=== PATIENT | male | born 1940 | race Caucasian/White ===

== ENCOUNTER → 2023-10-26 06:02 | Outpatient (REF) | payer MEDICARE, OTHER, SELFPAY ==
[2023-10-26 09:31] LABS: % Basophils 0.5 % (0-2); % Eosinophils 2.3 % (0-6); % Immature Granulocytes 0.5 % (0-0.5); % Lymphocytes 28.5 % (20.5-51.1); % Monocytes 7.3 % (1.7-9.3); % Neutrophils 60.9 % (42.2-75.2); Absolute Eosinophils 0.1 10^3/uL (0-0.7); Absolute Lymphocytes 1.3 10^3/uL (1.2-3.4); Absolute Monocytes 0.3 10^3/uL (0.1-0.6); Absolute Neutrophils 2.7 10^3/uL (1.4-6.5); Hematocrit 38.6 % (39.0-52.0); Hemoglobin 12.5 g/dL (13.0-18.0); Mean Corp Hgb Conc. 32.4 g/dL (33.0-37.0); Mean Corpuscular Hgb 28.1 pg (27.0-31.0); Mean Corpuscular Volume 86.7 fL (80.0-94.0); Mean Platelet Volume 11.8 fL (7.4-10.4); Nucleated Red Blood Cells % 0 % (-); Platelet Count 132 10^3/uL (130-400); Red Blood Cell Count 4.45 10^6/uL (4.70-6.10); Red Cell Dist. Width 13.8 % (11.5-14.5); White Blood Cell Count 4.4 10^3/uL (4.8-10.8)
[2023-10-26 09:41] LABS: Iron 81 ug/dl (49-181)
[2023-10-26 09:50] LABS: Percent Saturation 24 % (20-50); Total Iron Binding Capacity 337 ug/dl (261-462)
[2023-10-26 10:17] LABS: Ferritin 46.1 ng/ml (17.9-464.0)
== END ==
LOC: HWLAB 06:02
PROVIDERS: ATTENDING PHYSICIAN Family Medicine
DX: D64.9 Anemia, unspecified (principal)
CPT/HCPCS: 36415; 82728; 83540; 83550; 85025

== ENCOUNTER → 2023-11-25 07:05 | Outpatient (REF) | payer MEDICARE, OTHER, SELFPAY | LOC: DHCBS HW 07:05 | PROVIDERS: ATTENDING PHYSICIAN Internal Medicine Cardiovascular Disease; FAMILY PHYSICIAN Family Medicine | DX: R06.09 Other forms of dyspnea (principal) | CPT/HCPCS: 93306 ==

== ENCOUNTER → 2023-12-08 12:37 | Outpatient (REF) | payer MEDICARE, OTHER, SELFPAY ==
--- NOTE | 2023-12-08 14:35 | CARDSERVDEF ---
Echocardiogram with Definity completed after protocol screening completed. Allergies verified.
Patent IV site: Left antecubital 22 G PC
IV site flushed with 0.9% NaCl pre and post administration.
Diluted bolus method utilized to enhance visualization of ventricular morales.
Total volume given: _6___ mL
Patient tolerated all procedures well without complications.
Heplock D/C ed at 1424, site clear, no redness, no edema. Pressure held for few minutes, no bleeding. 2x2 applied. (Pt was unable to complete Stress test due to SOB, Cardiology W Jacklyn ST in to see patient, scheduling cardiac cath as outpatient.
Instructions given by Cardiology). Pt offers no complaints, denies SOB, denies chest pain.
== END ==
LOC: RCS 12:37
PROVIDERS: ATTENDING PHYSICIAN Internal Medicine Cardiovascular Disease; FAMILY PHYSICIAN Family Medicine
DX: R06.09 Other forms of dyspnea (principal); R07.89 Other chest pain
CPT/HCPCS: 93017; 93350; Q9957

== ENCOUNTER 2023-12-10 09:50 | Inpatient (IN) | payer MEDICARE, OTHER, SELFPAY ==
[2023-12-10] VITALS (26 sets, daily range): BP systolic 86–135; BP diastolic 52–105; BMI 27.7; BMI 27.0
[2023-12-10 07:32] LABS: Hematocrit 34.9 % (39.0-52.0); Hemoglobin 11.2 g/dL (13.0-18.0); Mean Corp Hgb Conc. 32.1 g/dL (33.0-37.0); Mean Corpuscular Hgb 27.9 pg (27.0-31.0); Mean Corpuscular Volume 86.8 fL (80.0-94.0); Mean Platelet Volume 12.5 fL (7.4-10.4); Platelet Count 130 10^3/uL (130-400); Red Blood Cell Count 4.02 10^6/uL (4.70-6.10); Red Cell Dist. Width 14.1 % (11.5-14.5)
[2023-12-10] MEDS: LOW STRENGTH ASPIRIN 324 MG PO (07:35)
[2023-12-10 07:52] LABS: Blood Urea Nitrogen 24 mg/dl (9-20); Calcium 9.1 mg/dl (8.4-10.2); Carbon Dioxide 24 mmol/L (22-30); Chloride 112 mmol/L (98-107); Estimated Creatinine Clearance 75 ml/min; Glucose 100 mg/dl (70-99); Potassium 4.2 mmol/L (3.5-5.1); Sodium 138 mmol/L (135-145); eGFR > 60.00
--- NOTE | 2023-12-10 10:01 | ITS.CL.CATH ---
[employer] - Catheterization
Cardiac Catheterization
Procedure Report:
RIGHT AND LEFT HEART STUDY
Date of Procedure: December 10, 2023
Referring: Dr. Reinaldo Castillo
PROCEDURES:
1. Right heart catheterization
2. Left heart catheterization with coronary and single-plane left ventriculography
INDICATION: This is an 83-year-old gentleman with a past medical history notable for paroxysmal atrial fibrillation treated with pulmonary vein isolation several years ago. He returned from [place] about 1 month ago and reported the sudden onset of
severe shortness of breath with any exertion. He had a stress echocardiogram performed on 12/08/2023 and was able to exercise only for 1 minute and 20 seconds on a Dell protocol before terminating exercise due to severe dyspnea.
ACCESS: Right radial artery, 6 South African sheath and right brachial vein, 6 [place] African sheath
HEMODYNAMICS : mmHg
RA (m) : 17
RV (s/d) : 49/11, 18
PA (s/d, m) : 49/22, 31
PCWP (m) : 35
AO (s/d, m) : 101/59, 74
LV (s/d) : 112/60
LVEDP : 28
AORTIC VALVE: Severity of aortic stenosis may be significantly underestimated given moderate LV dysfunction and an estimated ejection fraction of 30%
Mean gradient: 17 mmHg
IMTIAZ 1.1 cm�
Estimated Marilyn Cardiac Output: 3.7 L / min and Cardiac Index: 1.8 L/ min / m-2
Systemic vascular resistance: [ ] Wood units or [ ] [id number]-zno-kh(-5)
Pulmonary vascular resistance: [ ] Wood units or [ ] kyfjx-fyg-ks(-5)
CORONARY FINDINGS :
Dominance: Right
LEFT MAIN: 80% proximal and hazy 90% distal calcified stenosis.
LEFT ANTERIOR DESCENDING: The LAD arises normally from the left main and has an 80% stenosis near the origin of the first large septal dinkey driver. The remainder of the LAD has minor irregularities. The first diagonal branch arises proximally from
the LAD and is patent. The second diagonal branch has a 50% stenosis in the mid vessel
CIRCUMFLEX: 90% ostial stenosis. Tandem calcified / hazy 70% mid stenosis and 70% mid stenosis. OM1 is small. OM 2 is a moderate caliber vessel arising from the mid circumflex just before it continues in the AV groove. The AV groove continuation
of the circumflex has a long 60% distal stenosis and the distal vessel terminated in two moderate caliber posterolateral branches.
RIGHT CORONARY ARTERY: The right coronary artery is a medium caliber codominant vessel that is subtotally occluded at its origin. The mid RCA has tandem 95% heavily calcified stenoses and there is BERNARD II flow to a small codominant PDA
VENTRICULOGRAPHY: Left ventriculography was performed in an BECK projection. The digital single-plane left ventricular ejection fraction is visually estimated at 30% with moderate global hypokinesis severe posterior basal and diaphragmatic inferior
hypokinesis
RADIATION SUMMARY: Fluoro Time (min): 7.2, Dose (mGy): 467, DAP (Gy.cm2) : 37.5
CONCLUSIONS
1. Severe left main, LAD, circumflex, and RCA coronary disease
2. Moderate left ventricular dysfunction with an estimated ejection fraction of 30%
3. Moderate aortic stenosis
RECOMMENDATIONS
1. Consult CT surgery for coronary artery bypass grafting. Target should include LAD +/- diagonal, circumflex OM2 +/- posterolateral branch, and RCA
Copy to: Dr. Reinaldo Castillo
--- NOTE | 2023-12-10 10:14 | CONSULT.CT ---
Consultation
-
Date/Time Consultation Requested: 12/10/23
Date/Time Consultation Performed: 12/10/23
Requesting Provider: Dr Mirza
Performing Provider: Grace Minor for Dr. Pathak
Reason for Consultation: evaluate for CABG possible AVR
Patient History
Physicians
Family Physician: Dr. Giuliano Smith
Outpatient [place] Supervisor: Dr. Santos
Inpatient [place] Supervisor: Dr. Mirza
History of Present Illness
Romero Hernandez is an 83 year old male electively admitted for cardiac catheterization on 12/10/2023 patient was in usual state of health until approximately 6 weeks ago when he noted exertional shortness of breath while walking fast or
cutting the lawn. Patient saw his primary who referred him to Dr. Santos. Patient underwent outpatient stress test which was abnormal and was referred for catheterization. A catheter. Left main/triple-vessel coronary disease. Transthoracic
echocardiogram reported to mild-moderate aortic stenosis and mildly reduced LV ejection fraction. Last dose Eliquis was this morning.
Cardiac catheterization 12/10/2023 via right radial artery:
TTE: 11/25/23: LV ejection fraction 45-50%, mild�moderate mitral regurgitation and aortic stenosis. Aortic valve gradients 31/20 mmHg, IMTIAZ 1.2 cm�
Past Medical History
Past Medical History: Angina, Atrial Fib (s/p ablation x 2), Cancer (prostate cancer), HTN and Other (DJD)
Past Surgical History
Past Surgical History: Urological (prostatectomy 10 yrs ago ([place])) and Other (Left total hip replacement)
Family History
Mother: at Age (55) and Cause of ([place])
Father: at Age (95)
Social History
Alcohol: None
Drug: None
Tobacco: Non-Smoker
Personal:
Living: With Spouse
Employment: Employed
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
Allergies
Allergy/AdvReac Type Severity Reaction Status Date / Time
No Known Allergies Allergy Verified 12/10/23 07:11
Home Medications
�Medication �Instructions �Recorded �Confirmed �Type
apixaban 5 mg tablet (Eliquis) 5 mg PO BID Blood clot 08/02/15 12/10/23 History
prevention/tx
losartan 50 mg tablet 50 mg PO BID Blood pressure 08/02/15 12/10/23 History
simvastatin 40 mg tablet 40 mg PO QPM High cholesterol 09/25/15 12/10/23 History
bpvnyfgs-rly-qjlxq acid 0.4 1 ea PO DAILY Supplement 02/15/20 12/10/23 History
mg-lycopene 300 mcg-lutein 250 mcg
tablet (Centrum Silver)
amlodipine 5 mg tablet 5 mg PO DAILY Blood pressure #30 07/30/21 12/10/23 Rx
tabs
dofetilide 250 mcg capsule 250 mcg PO Q12 Arrhythmia #60 caps 07/30/21 12/10/23 Rx
Review of Systems
-
History Source: Patient
General: Reports No Symptoms
HEENT: Reports No Symptoms
Respiratory: Reports SOB (exertional)
Cardiac: Reports No Symptoms
Abdomen/GI: Reports No Symptoms
: Reports No Symptoms
Musculoskeletal: Reports No Symptoms
Skin: Reports No Symptoms
Neurological: Reports No Symptoms
Vascular: Reports No Symptoms
Physical Exam
Vital Signs
Temp 98.2 F 12/10/23 06:52
Pulse 69 12/10/23 10:10
Resp Rate 18 12/10/23 10:10
Blood pressure 115/80 12/10/23 10:10
Blood pressure extremity used: Right upper arm 12/10/23 06:52
Position: Lying 12/10/23 06:52
MAP (cuff-Mandy Monitor) 90 12/10/23 10:10
SaO2 99 12/10/23 10:10
Oxygen Mode of Delivery Room air 12/10/23 06:52
Can the patient verbally communicate their pain? Yes 12/10/23 06:52
Actual Weight 87.6 kg 12/10/23 07:30
Body Mass Index (BMI) 27.7 12/10/23 07:30
Labs
12/10/23 07:25
Exam
General: Well Developed, Well Nourished and Comfortable
HEENT: Normocephalic, Anicteric, Moist Mucous Membranes and PERRLA
Neck: Trachea Midline
Respiratory: Clear
Cardiac: S1/S2
GI: Soft, Non Tender, Non Distended and Normal Bowel Sounds
Rectal: Deferred by Provider
Skin: Warm and Dry
Neuro: AO x 3, No Motor Deficits and Nonfocal/Grossly Intact
Extremities: Pulses (+1/4)
Lymph: No Lymphadenopathy
Psych: Calm
Assessment / Plan
-
83-year-old male with left main/triple-vessel disease and mild/moderate aortic stenosis with mildly reduced ejection fraction, paroxysmal atrial fibrillation
- Diagnostic testing ordered
- Dr. Pathak to review imaging and speak with patient
- Last Eliquis dose 12/10/23
Data Reviewed
-
EKG: Report Reviewed by me and Discussed with Physician
Physician Gynecologist: Report Reviewed by me and Discussed with Physician
Echo: Report Reviewed by me and Discussed with Physician
Labs: Labs Reviewed by me and Discussed with Physician
[2023-12-10] MEDS: LASIX 40 MG IV ×2 (11:09→16:37)
[2023-12-10 13:59] LABS: Glycohemoglobin (HgbA1c) 6.2 % (4.0-5.6)
--- NOTE | 2023-12-10 14:44 | PTCARENOTE ---
Received pt post cath. VSS. Right radial and brachial sites w/ dsgs intact. Pt denies any chest pain. CT surgen in room. Will draw bloodwork and start the heparin drip when labs resulted. Meds as ordered.
[2023-12-10 15:11] LABS: INR 1.13; PT 14.4 Sec (11.4-14.6)
[2023-12-10 15:12] LABS: APTT 30.5 Sec (23.4-35.0)
[2023-12-10] MEDS: HEPARIN 25000 UNITS/250 ML IV (15:21)
--- NOTE | 2023-12-10 16:43 | W.PN.UPDATE ---
Update Note
Progress Note Update
pt seen and examined
cath reviewed
discussed with Dr Mirza
Pleasant 83 y/o with hx/o afib, admitted for cath following outpt workup for exertional dyspnea
Cath with left main and critical cad
I agree cabg, maze, DOUGLAS clip indicated.
Echo with Moderate , EF 30 (gradients might be underestimated)
Consideration for AVR at time of surgery
Long conversation with family and pt regarding findings and recommendations
Plan for possible surgery on Wed with Dr Lackey.
All questions answered.
--- NOTE | 2023-12-10 17:05 | CM ---
spoke to pt in room, he is prev indep, lives with his in a 2 story home with 2 steps to enter. he denies any dme's. plan is for CABG Tu or wed. cm to follow.
[2023-12-10] MEDS: LIPITOR 40 MG PO (18:40)
--- NOTE | 2023-12-10 20:00 | PTCARENOTE ---
Assumed care, patient sitting up in bed, denies pain. SR with 1st degree HB, bigeminy HR 60-70, murmur. Heparin infusing per MAR. Right radial and brachial dressing CDI. Urinal at bedside, emptied 500 cc of pale yellow urine. Lungs CTA, denies SOB.
Call romero in reach
[2023-12-10] MEDS: TIKOSYN 250 MCG PO (20:57)
[2023-12-10] MEDS: COZAAR 50 MG PO (20:57)
[2023-12-11 04:02] VITALS: BP 119/83
[2023-12-11 04:22] VITALS: BMI 26.4
[2023-12-11 05:11] LABS: ALT (SGPT) 107 U/L (0-50); AST (SGOT) 45 U/L (17-59); Albumin 3.6 g/dl (3.5-5.0); Alkaline Phosphatase 70 U/L (38-126); Blood Urea Nitrogen 21 mg/dl (9-20); Calcium 9.2 mg/dl (8.4-10.2); Carbon Dioxide 26 mmol/L (22-30); Chloride 109 mmol/L (98-107); Direct Bilirubin 0.2 mg/dl (0.0-0.4); Estimated Creatinine Clearance 75 ml/min; Glucose 106 mg/dl (70-99); HDL Cholesterol 59 mg/dl; LDL Cholesterol, Calculated 63 mg/dl; Magnesium 2.2 mg/dl (1.6-2.3); Sodium 139 mmol/L (135-145); Total Bilirubin 1.6 mg/dl (0.2-1.3); Total Cholesterol 134 mg/dl (50-199); Triglyceride 64 mg/dl (10-149); Very Low Density Lipoprotein 12 mg/dl (0-30); eGFR > 60.00
[2023-12-11 05:27] LABS: INR 1.11; PT 14.2 Sec (11.4-14.6)
[2023-12-11 05:28] LABS: APTT 51.3 Sec (23.4-35.0)
[2023-12-11 06:26] LABS: Hematocrit 37.6 % (39.0-52.0); Hemoglobin 12.2 g/dL (13.0-18.0); Mean Corp Hgb Conc. 32.4 g/dL (33.0-37.0); Mean Corpuscular Hgb 27.7 pg (27.0-31.0); Mean Corpuscular Volume 85.5 fL (80.0-94.0); Mean Platelet Volume 13.4 fL (7.4-10.4); Platelet Count 126 10^3/uL (130-400); White Blood Cell Count 6.8 10^3/uL (4.8-10.8)
--- NOTE | 2023-12-11 07:38 | W.PN.CARDCBS ---
Addendum entered and electronically signed by Dante Hale MD 12/11/23 10:38:
I saw and examined the patient.
The SAW BOSS or PA's note was reviewed and I agree with the note.
Comment: General: Well developed, well nourished in NAD.
Neck: Supple, no JVD, HJR, carotids +2 B/L, no bruits bilaterally.
Heart: Non displaced PMI, RRR, 2/6 basal systolic murmur, No S3, S4, no rubs.
Lungs: Clear to auscultation bilaterally, no wheeze, rhonchi, rubs bilaterally,
normal expiratory phase.
Extremities: No clubbing, cyanosis or edema bilaterally.
Neuro: Grossly nonfocal, awake, alert and oriented x3.
Stable at present. Continue IV heparin. No chest pain or shortness of breath. For CABG/AVR on Thursday 12/14
Original Note:
Today's Communication / Plan
-
GEN: No distress, awake, alert, oriented x3
HEENT: supple, anicteric, mmm
LUNGS: CTA b/l, no wheezes/rales
CV: Reg, S1/S2, 2/6 syst murmur
EXT: No clubbing, cyanosis, or edema
NEURO: Gross non-focal
SKIN: Warm, dry, no rash
Impression / Plan
-
PCP: Dr. Alberto
Cardiology: Dr. Castillo
EP: Dr. Davis
Impression:
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
90% distal LM, 80% LAD, 90% ostial circ, 95% mid RCA
Paroxysmal Afib
s/p PVI 09/25/15
s/p PVI 08/18/19
Chronic Tikosyn therapy
s/p LINQ implant in 2015 and replaced in 02/23/20
Chronic Eliquis OAC
HTN
Hyperlipidemia
Echo 06/08/19: EF 60-65%, mild MR, mild TR
Echo 11/25/2023: EF 45-50%, mild cLVH, global hypokinesis, mild-moderate MR, mild-moderate with peak/mean gradients 37/20 mmHg, trace AI, mild-moderate TR, estimated PAP 42 mmHg
Plan:
-Presented for [facility] and found to have severe MV CAD as noted above. CT surgery consulted for evaluation of CABG.
-Evaluation ongoing. Plan is for possible surgery next week.
-No chest pain overnight. No SOB. Feeling well.
-Continues on heparin.
-Continue IV lasix 40mg BID. Creat stable at 0.8, weight down 5lbs overnight if accurate.
-Continue amlodipine and losartan. BP stable.
-Continue Tikosyn 250 mcg BID.
-In SR w/ PACs on review of telemetry
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
Subjective
Date of Service: December 11, 2023
No complaints, feeling well.
Objective
Labs:
12/11/23 04:21
12/11/23 04:21
Labs
Hgb 12.2 g/dL (13.0-18.0) L 12/11/23 04:21
Hct 37.6 % (39.0-52.0) L 12/11/23 04:21
Plt Count 126 10^3/uL (130-400) L 12/11/23 04:21
PT 14.2 Sec (11.4-14.6) 12/11/23 04:21
INR 1.11 12/11/23 04:21
APTT 51.3 Sec (23.4-35.0) H 12/11/23 04:21
APTT Cancelled 12/11/23 04:21
Sodium 139 mmol/L (135-145) 12/11/23 04:21
Potassium 4.0 mmol/L (3.5-5.1) 12/11/23 04:21
BUN 21 mg/dl (9-20) H 12/11/23 04:21
Creatinine 0.8 mg/dL (0.7-1.3) 12/11/23 04:21
Glucose 106 mg/dl (70-99) H 12/11/23 04:21
Vital Signs and I&O:
Vital Signs
Temp Pulse Resp BP Pulse Ox
97.5 F 63 16 119/83 97
12/11/23 04:04 12/11/23 04:02 12/11/23 04:04 12/11/23 04:02 12/11/23 04:04
Vital Signs
Temp Pulse Resp BP Pulse Ox
97.5 F 63 16 119/83 97
12/11/23 04:04 12/11/23 04:02 12/11/23 04:04 12/11/23 04:02 12/11/23 04:04
Intake & Output
12/09/23 12/10/23 12/11/23 12/12/23
06:59 06:59 06:59 06:59
Intake Total 520 / 520
Output Total 2820 / 2820
Balance -2300 / -2300
[2023-12-11] MEDS: NORVASC 5 MG PO (08:22)
[2023-12-11] MEDS: COZAAR 50 MG PO ×2 (08:22→20:24)
[2023-12-11] MEDS: TIKOSYN 250 MCG PO ×2 (08:22→20:21)
[2023-12-11] MEDS: LASIX 40 MG IV ×2 (08:22→16:43)
[2023-12-11 08:24] VITALS: BP 122/85
--- NOTE | 2023-12-11 09:56 | W.PN.UPDATE ---
Update Note
Progress Note Update
reviewed plans for
cabg
avr
epicardial maze
Jade ligation
Tentatively Wed
All questions answered
[2023-12-11] MEDS: HEPARIN 25000 UNITS/250 ML IV (12:19)
[2023-12-11 12:24] VITALS: BP 125/79
[2023-12-11 12:41] LABS: APTT 72.7 Sec (23.4-35.0)
[2023-12-11 16:53] VITALS: BP 120/80
[2023-12-11] MEDS: LIPITOR 40 MG PO (17:00)
[2023-12-11 19:29] LABS: APTT 84.7 Sec (23.4-35.0)
[2023-12-11 20:23] VITALS: BP 101/63
--- NOTE | 2023-12-11 20:49 | PTCARENOTE ---
pt seated in chair at time of rounds. ambulating the room as self. no complaints at this time. POC discussed- pt verbalized understanding- Heparin gtt running as ordered. SR in the 60s-70s on the monitor.
[2023-12-11 23:05] VITALS: BP 104/69
[2023-12-11 23:18] LABS: Urine Albumin Negative (Neg - Trace); Urine Bilirubin Negative (Negative); Urine Character Clear (Clear); Urine Color Yellow; Urine Glucose Negative (Negative); Urine Ketone Negative (Negative); Urine Leukocyte Negative (Negative); Urine Nitrite Negative (Negative); Urine Occult Blood Negative (Negative); Urine Urobilinogen Negative (Neg - 1+)
[2023-12-12] VITALS (10 sets, daily range): BP systolic 80–110; BP diastolic 59–78; BMI 26.0
[2023-12-12] MEDS: HEPARIN 25000 UNITS/250 ML IV ×2 (02:41→19:34)
[2023-12-12 03:06] LABS: Hemoglobin 12.4 g/dL (13.0-18.0); Mean Corp Hgb Conc. 31.8 g/dL (33.0-37.0); Mean Corpuscular Hgb 27.6 pg (27.0-31.0); Mean Corpuscular Volume 86.9 fL (80.0-94.0); Mean Platelet Volume 12.7 fL (7.4-10.4); Platelet Count 125 10^3/uL (130-400); Red Blood Cell Count 4.49 10^6/uL (4.70-6.10); Red Cell Dist. Width 13.8 % (11.5-14.5); White Blood Cell Count 5.7 10^3/uL (4.8-10.8)
[2023-12-12 03:17] LABS: APTT 101.6 Sec (23.4-35.0)
[2023-12-12 04:58] LABS: Blood Urea Nitrogen 24 mg/dl (9-20); Calcium 9.4 mg/dl (8.4-10.2); Carbon Dioxide 26 mmol/L (22-30); Chloride 107 mmol/L (98-107); Estimated Creatinine Clearance 66 ml/min; Glucose 103 mg/dl (70-99); Potassium 3.8 mmol/L (3.5-5.1); Sodium 137 mmol/L (135-145); eGFR > 60.00
[2023-12-12] MEDS: COZAAR PO (08:48)
[2023-12-12] MEDS: FLUSH (NSS) 2 FLUSH IV (09:32)
[2023-12-12] MEDS: NORVASC 5 MG PO (09:32)
[2023-12-12] MEDS: TIKOSYN 250 MCG PO ×2 (09:32→19:34)
[2023-12-12] MEDS: LASIX 40 MG IV ×2 (09:32→16:39)
--- NOTE | 2023-12-12 10:18 | PTCARENOTE ---
Patient states he slept well last night. IV heparin infusing at 1500 units/hr. Notified Dr. Hale as per protocol of platelet count of 125. Notified CT surgery PA of low HR during the night and losartan which is ordered BID, losartan now placed on
hold in preparation for surgery.
--- NOTE | 2023-12-12 12:01 | W.PN.CARDCBS ---
Today's Communication / Plan
-
For CABG/AVR on 12/14
Change to Lasix 40 mg daily
Impression / Plan
-
PCP: Dr. Alberto
Cardiology: Dr. Castillo
EP: Dr. Davis
Impression:
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
90% distal LM, 80% LAD, 90% ostial circ, 95% mid RCA
Paroxysmal Afib
s/p PVI 09/25/15
s/p PVI 08/18/19
Chronic Tikosyn therapy
s/p LINQ implant in 2015 and replaced in 02/23/20
Chronic Eliquis OAC
HTN
Hyperlipidemia
Echo 06/08/19: EF 60-65%, mild MR, mild TR
Echo 11/25/2023: EF 45-50%, mild cLVH, global hypokinesis, mild-moderate MR, mild-moderate with peak/mean gradients 37/20 mmHg, trace AI, mild-moderate TR, estimated PAP 42 mmHg
Plan:
Plan is for CABG AVR on Thursday 12/14
Continue IV heparin
No obvious CHF. Will change Lasix to 40 mg daily
QT okay on Tikosyn
Progress Note - Inspector Finishing
Subjective
Date of Service: December 12, 2023
No complaints
Objective
Labs:
12/12/23 02:36
12/12/23 02:36
Labs
Hgb 12.4 g/dL (13.0-18.0) L 12/12/23 02:36
Hct 39.0 % (39.0-52.0) 12/12/23 02:36
Plt Count 125 10^3/uL (130-400) L 12/12/23 02:36
PT 14.2 Sec (11.4-14.6) 12/11/23 04:21
INR 1.11 12/11/23 04:21
APTT 101.6 Sec (23.4-35.0) H 12/12/23 02:36
Sodium 137 mmol/L (135-145) 12/12/23 02:36
Potassium 3.8 mmol/L (3.5-5.1) 12/12/23 02:36
BUN 24 mg/dl (9-20) H 12/12/23 02:36
Creatinine 0.9 mg/dL (0.7-1.3) 12/12/23 02:36
Glucose 103 mg/dl (70-99) H 12/12/23 02:36
Vital Signs and I&O:
Vital Signs
Temp Pulse Resp BP Pulse Ox
98.1 F 77 20 109/68 96
12/12/23 10:53 12/12/23 11:00 12/12/23 10:53 12/12/23 10:56 12/12/23 10:53
Vital Signs
Temp Pulse Resp BP Pulse Ox
98.1 F 77 20 109/68 96
12/12/23 10:53 12/12/23 11:00 12/12/23 10:53 12/12/23 10:56 12/12/23 10:53
Intake & Output
12/10/23 12/11/23 12/12/23 12/13/23
06:59 06:59 06:59 06:59
Intake Total 520 / 520 480 / 480
Output Total 2820 / 2820 900 / 900
Balance -2300 / -2300 -900 / -900 480 / 480
Physical Exam
Physical Exam
General: Well developed, well nourished in NAD.
Neck: Supple, no JVD, HJR, carotids +2 B/L, no bruits bilaterally.
Heart: Non displaced PMI, RRR, 2/6 basal systolic murmur, No S3, S4, no rubs.
Lungs: Clear to auscultation bilaterally, no wheeze, rhonchi, rubs bilaterally,
normal expiratory phase.
Extremities: No clubbing, cyanosis or edema bilaterally.
Neuro: Grossly nonfocal, awake, alert and oriented x3.
--- NOTE | 2023-12-12 14:03 | W.PN.UPDATE ---
Update Note
Progress Note Update
Panorex completed
Carotid ultrasound ordered for 12/13/2023
CT of the chest reviewed and discussed with attending physician. Thoracic aorta amenable to cross-clamp. Pulmonary nodules/interstitial opacities acknowledged.
Continue primary management and heparin drip per cardiology
Plan for CABG, +/- AVR, maze, LAAC, tentatively Wednesday
[2023-12-12] MEDS: FLUSH (NSS) 1 FLUSH IV (16:40)
[2023-12-12] MEDS: LIPITOR 40 MG PO (18:40)
--- NOTE | 2023-12-12 20:37 | PTCARENOTE ---
Rec'd pt from prev nsg shift AAOx3 w/no c/o CP or SOB. Pt's VS stable w/HR in the 60's-70's. Pt is SR w/1deg AV block & BBB at times & in controlled Afib others. Pt w/IV Heparin drip infusing through patent IV line as ordered. Pt w/call romero within
reach & no addtl needs at this time. Plan of care ongoing.
[2023-12-13] VITALS (7 sets, daily range): BP systolic 97–126; BP diastolic 68–86; BMI 25.9
[2023-12-13 04:48] LABS: APTT 115.6 Sec (23.4-35.0)
[2023-12-13 05:13] LABS: Blood Urea Nitrogen 32 mg/dl (9-20); Calcium 9.4 mg/dl (8.4-10.2); Carbon Dioxide 26 mmol/L (22-30); Chloride 107 mmol/L (98-107); Estimated Creatinine Clearance 66 ml/min; Glucose 113 mg/dl (70-99); Sodium 137 mmol/L (135-145); eGFR > 60.00
[2023-12-13] MEDS: TIKOSYN 250 MCG PO ×2 (09:08→20:36)
[2023-12-13] MEDS: NORVASC 5 MG PO (09:08)
[2023-12-13] MEDS: LASIX 40 MG IV (09:09)
[2023-12-13] MEDS: FLUSH (NSS) 2 FLUSH IV (09:09)
--- NOTE | 2023-12-13 09:38 | PTCARENOTE ---
Received patient this morning ambulating in his room. IV heparin infusing at 1400 units/hr. Patient noted to be in AF this morning, rate in the 60-70's.
--- NOTE | 2023-12-13 10:19 | W.PN.CARDCBS ---
Addendum entered and electronically signed by Meme Hernandez MD 12/13/23 12:17:
I saw and examined the patient.
The City Dispatch Supervisor's note was reviewed and I agree with the note.
Comment: Awaiting plan for OR timing. Patient with coronary disease which is multivessel as noted and aortic valve stenosis.
No symptoms overnight.
Known paroxysmal atrial fibrillation. Recurrence overnight which is rate controlled. Continue IV heparin. Will renew.
Continue current treatment otherwise.
Discussed at length with the patient and his at the bedside.
Original Note:
Today's Communication / Plan
-
Tentative plan for OR 12/14
Continue heparin
Transition to PO lasix
Impression / Plan
-
PCP: Dr. Alberto
Cardiology: Dr. Castillo
EP: Dr. Davis
Impression:
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
90% distal LM, 80% LAD, 90% ostial circ, 95% mid RCA
Paroxysmal Afib
s/p PVI 09/25/15
s/p PVI 08/18/19
Chronic Tikosyn therapy
s/p LINQ implant in 2015 and replaced in 02/23/20
Chronic Eliquis OAC
HTN
Hyperlipidemia
Echo 06/08/19: EF 60-65%, mild MR, mild TR
Echo 11/25/2023: EF 45-50%, mild cLVH, global hypokinesis, mild-moderate MR, mild-moderate with peak/mean gradients 37/20 mmHg, trace AI, mild-moderate TR, estimated PAP 42 mmHg
Plan:
-Presented for [facility] and found to have severe MV CAD as noted above. CT surgery consulted for evaluation of CABG.
-Plan is tentatively for CABG/AVR on Thursday 12/14. No chest pain. No SOB. Feeling well, ambulating around the unit without exertional symptoms.
-Continues on IV heparin.
-Diuresed with IV lasix 40mg BID. Weight down to 180lbs. Appears euvolemic, creat 0.9.
-Will transition to lasix PO 40mg daily.
-Continue amlodipine and losartan. BP stable.
-Going in and out of Afib on review of telemetry. Continues on Tikosyn 250 mcg BID. QTc stable at 428ms by EKG 12/11.
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
Subjective
Date of Service: December 13, 2023
No complaints. Walking around unit, feels well.
Objective
Labs:
12/12/23 02:36
12/13/23 04:13
Labs
Hgb 12.4 g/dL (13.0-18.0) L 12/12/23 02:36
Hct 39.0 % (39.0-52.0) 12/12/23 02:36
Plt Count 125 10^3/uL (130-400) L 12/12/23 02:36
PT 14.2 Sec (11.4-14.6) 12/11/23 04:21
INR 1.11 12/11/23 04:21
APTT 115.6 Sec (23.4-35.0) H 12/13/23 04:13
Sodium 137 mmol/L (135-145) 12/13/23 04:13
Potassium 4.0 mmol/L (3.5-5.1) 12/13/23 04:13
BUN 32 mg/dl (9-20) H 12/13/23 04:13
Creatinine 0.9 mg/dL (0.7-1.3) 12/13/23 04:13
Glucose 113 mg/dl (70-99) H 12/13/23 04:13
Vital Signs and I&O:
Vital Signs
Temp Pulse Resp BP Pulse Ox
97.9 F 81 18 112/77 98
12/13/23 07:40 12/13/23 07:41 12/13/23 07:40 12/13/23 07:41 12/13/23 07:40
Vital Signs
Temp Pulse Resp BP Pulse Ox
97.9 F 81 18 112/77 98
12/13/23 07:40 12/13/23 07:41 12/13/23 07:40 12/13/23 07:41 12/13/23 07:40
Intake & Output
12/11/23 12/12/23 12/13/23 12/14/23
06:59 06:59 06:59 06:59
Intake Total 520 / 520 1440 / 1440
Output Total 2820 / 2820 900 / 900 650 / 650
Balance -2300 / -2300 -900 / -900 790 / 790
Physical Exam
Physical Exam
GEN: No distress, awake, alert, oriented x3
HEENT: supple, anicteric, mmm
LUNGS: CTA b/l, no wheezes/rales
CV: Reg, S1/S2, 2/6 syst murmur
EXT: No clubbing, cyanosis, or edema
NEURO: Gross non-focal
SKIN: Warm, dry, no rash
--- NOTE | 2023-12-13 11:31 | CM ---
Chart reviewed. Patient is independent of ADLS, lives with his in a 2 [address], 2 BRITTANY, 0 DME. Reviewed preoperative and postoperative instructions, along with showering guidelines. Patient has the Cardiac Surgery Booklet. Patient is agreeable
to a home visit by CT Transitional RN. Plan is for the patient to return home with CT Transitional RN.
[2023-12-13 12:07] LABS: APTT 75.6 Sec (23.4-35.0)
--- NOTE | 2023-12-13 12:44 | W.PN.UPDATE ---
Update Note
Progress Note Update
CARDIAC SURGERY ATTENDING:
I had a greater than 60-minute discussion with . Romero Hernandez and his family at bedside today. We reviewed his pathology, the proposed operative interventions, the associated operative risks (including, but not limited to, , stroke, MD, PPM
requirement, arrhythmia, MCS requirement, pneumonia, RENETTA/F, bleeding, infection), the expected in-hospital postoperative course, and the expected outpatient recovery. All questions were answered to the best of my abilities. The patient is
agreeable to proceed with surgery.
We will proceed with surgery on 12/15/2023. Operative plan will include CABG x 3-4 with planned KATI-to-LAD, GSV to OM2, GSV to L PLB/PDA, and intraoperative evaluation of R PDA, AVR with biologic valve, and exclusion of his left atrial
appendage. Given his 2 prior PVI's and current sinus rhythm, I do not believe adding concurrent encompass maze procedure would result in significant additional freedom from AF and could potentially further elevate his PPM risk.
The patient and his family were told to call at any time should any additional questions arise. Thank you for the opportunity to participate in the care of this kind gentleman.
Jarred Lackey MD
[phone]
[2023-12-13] MEDS: HEPARIN 25000 UNITS/250 ML IV (13:08)
--- NOTE | 2023-12-13 15:11 | PTCARENOTE ---
Patient oob ambulating in the jane, denies any pain or sob. Surgeon in to speak with the patient and his family, plan for surgery on Wednesday. IV heparin infusing as ordered. Family in visiting.
--- NOTE | 2023-12-13 15:49 | W.PN.UPDATE ---
Update Note
Progress Note Update
Procedure Type:�CABG + AVR
PERIOPERATIVE OUTCOME ESTIMATE %
Operative Mortality 7.12%
Morbidity & Mortality 20.7%
Stroke 2.26%
Renal Failure 3.25%
Reoperation 6.56%
Prolonged Ventilation 12.3%
Deep Sternal Wound Infection 0.119%
Long Hospital Stay (>14 days) 15.4%
Short Hospital Stay (<6 days)* 14.8%
Clinical Summary
Planned Surgery: CABG + AVR, Urgent, First cardiovascular surgery
Demographics: 83 year old, White, male, 88kg, 178cm, BMI: 27.8 kg/m�
Lab Values: Creatinine: 0.9 mg/dL, Hematocrit: 39%, WBC Count: 5.7 10�/�L, Platelet Count: 264643 cells/�L
Substance Abuse: Never smoker
Risk Factors / Comorbidities: Family Hx of CAD
Cardiac Status: Acute heart failure, NYHA Class I, Ejection Fraction = 45%
Coronary Artery Disease: 3 vessels diseased, Left Main Stenosis >=50%, Proximal LAD Stenosis >=70%, Angina equivalent, WA: 8 to 21 Days
Valve Disease: Aortic Stenosis, Moderate MR, Moderate TR
[2023-12-13] MEDS: LIPITOR 40 MG PO (17:50)
--- NOTE | 2023-12-13 23:15 | PTCARENOTE ---
pt seated in bed at change of shift- plan of care discussed. VSS. Heparin gtt running as documented. AFIB on the monitor 40s- 60s. call romero within reach.
[2023-12-14 04:41] VITALS: BP 114/87
[2023-12-14] MEDS: HEPARIN 25000 UNITS/250 ML IV ×2 (05:00→22:28)
[2023-12-14 05:21] LABS: Hematocrit 39.4 % (39.0-52.0); Hemoglobin 12.9 g/dL (13.0-18.0); Mean Corp Hgb Conc. 32.7 g/dL (33.0-37.0); Mean Corpuscular Hgb 27.8 pg (27.0-31.0); Mean Corpuscular Volume 84.9 fL (80.0-94.0); Mean Platelet Volume 12.1 fL (7.4-10.4); Platelet Count 136 10^3/uL (130-400); Red Blood Cell Count 4.64 10^6/uL (4.70-6.10); Red Cell Dist. Width 13.8 % (11.5-14.5); White Blood Cell Count 5.8 10^3/uL (4.8-10.8)
[2023-12-14 05:24] LABS: APTT 91.6 Sec (23.4-35.0)
[2023-12-14 05:43] LABS: ALT (SGPT) 50 U/L (0-50); AST (SGOT) 28 U/L (17-59); Albumin 3.5 g/dl (3.5-5.0); Alkaline Phosphatase 62 U/L (38-126); Blood Urea Nitrogen 33 mg/dl (9-20); Calcium 9.6 mg/dl (8.4-10.2); Carbon Dioxide 24 mmol/L (22-30); Chloride 106 mmol/L (98-107); Estimated Creatinine Clearance 66 ml/min; Glucose 104 mg/dl (70-99); Potassium 4.2 mmol/L (3.5-5.1); Sodium 136 mmol/L (135-145); Total Bilirubin 1.5 mg/dl (0.2-1.3); Total Protein 5.9 g/dl (6.3-8.2); eGFR > 60.00
[2023-12-14 06:00] VITALS: BMI 26.1
[2023-12-14 07:38] VITALS: BP 130/88
--- NOTE | 2023-12-14 07:43 | W.PN.CT ---
Today's Communication / Plan
-
-Cont. current medical management per primary team
-Cont. current meds (heparin gtt, Tikosyn, Lipitor, Norvasc; avoid BRANDIN-I/ARB's in preparation for OR)
-Ongoing preop workup
-For CABG/ELAA by Dr. Lackey tomorrow, 12/14
-Will d/c heparin gtt sap plant maintenance consultant to OR
-Will cont. to closely monitor
Assessment / Plan
-
Assessment:
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
-A-fib S/P PVI x2 ( 09/25/15 and 08/18/19)- on Eliquis/Tikosyn at home
-S/p Ling implant 2015
-HTN
-Hyperlipidemia
Discussed patient care with: Cardiology, Nursing, Respiratory Therapy, Pharmacy and Care Team
Subjective
-
Date of Service: December 14, 2023
No issues overnight. Denies CP/SOB
Objective Data
-
Lab Results
12/14/23 04:51
12/14/23 04:51
PT 14.2 Sec (11.4-14.6) 12/11/23 04:21
INR 1.11 12/11/23 04:21
APTT 91.6 Sec (23.4-35.0) H 12/14/23 04:51
Vital Signs
Vital Signs
Temp Pulse Resp BP Pulse Ox
97.5 F 68 16 114/87 98
12/14/23 07:38 12/14/23 07:38 12/14/23 07:38 12/14/23 04:41 12/14/23 07:38
CT Intake/Output/Weight
12/13/23 12/14/23 12/14/23
18:59 06:59 18:59
Intake Total 360 / 360
Output Total 1150 / 1150
Balance -790 / -790
SaO2: 98 (RA )
Physical Exam
-
General: Awake, Oriented and AOx3
Cardiovascular: Regular rate & rhythm, No Murmurs and No Gallop
Respiratory: Clear
Sternum: Stable
Extremities: No Edema
Data Reviewed
-
Lab Results: Results Reviewed
Medications: Active Meds Reviewed
Chest X-Ray: Report Reviewed and Image Reviewed
ECG: Report Reviewed and Image Reviewed
[2023-12-14] MEDS: LASIX 40 MG PO (07:46)
[2023-12-14] MEDS: NORVASC 5 MG PO (07:46)
[2023-12-14] MEDS: TIKOSYN 250 MCG PO ×2 (07:46→20:37)
--- NOTE | 2023-12-14 10:38 | W.PN.CARDCBS ---
Today's Communication / Plan
-
Agree with current cardiac meds
We will continue to follow
Impression / Plan
-
PCP: Dr. Alberto
Cardiology: Dr. Castillo
EP: Dr. Davis
Impression:
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
90% distal LM, 80% LAD, 90% ostial circ, 95% mid RCA
Paroxysmal Afib
s/p PVI 09/25/15
s/p PVI 08/18/19
Chronic Tikosyn therapy
s/p LINQ implant in 2015 and replaced in 02/23/20
Chronic Eliquis OAC
HTN
Hyperlipidemia
Echo 06/08/19: EF 60-65%, mild MR, mild TR
Echo 11/25/2023: EF 45-50%, mild cLVH, global hypokinesis, mild-moderate MR, mild-moderate with peak/mean gradients 37/20 mmHg, trace AI, mild-moderate TR, estimated PAP 42 mmHg
Plan:
-Presented for [facility] and found to have severe MV CAD as noted above. CT surgery consulted for evaluation of CABG.
-Plan is tentatively for CABG/AVR on Thursday 12/14. No further VIDES. No chest pain.
-Medical managment of CAD with asa/statin/BB/IV heparin
-Appears euvolemic on exam, continue PO lasix as maintenance diuretic
-BP controlled on amlodipine and losartan
-Continues to have paroxysms of AFib as well as frequent PVCs on tele, maintained on Tikosyn as an outpatient
-We will continue to follow
Progress Note - Slot Key Person
Subjective
Date of Service: December 14, 2023
No acute overnight events. Currently chest pain-free. Tells me that his dyspnea has resolved.
Objective
Labs:
12/14/23 04:51
12/14/23 04:51
Labs
Hgb 12.9 g/dL (13.0-18.0) L 12/14/23 04:51
Hct 39.4 % (39.0-52.0) 12/14/23 04:51
Plt Count 136 10^3/uL (130-400) 12/14/23 04:51
PT 14.2 Sec (11.4-14.6) 12/11/23 04:21
INR 1.11 12/11/23 04:21
APTT 91.6 Sec (23.4-35.0) H 12/14/23 04:51
Sodium 136 mmol/L (135-145) 12/14/23 04:51
Potassium 4.2 mmol/L (3.5-5.1) 12/14/23 04:51
BUN 33 mg/dl (9-20) H 12/14/23 04:51
Creatinine 0.9 mg/dL (0.7-1.3) 12/14/23 04:51
Glucose 104 mg/dl (70-99) H 12/14/23 04:51
Vital Signs and I&O:
Vital Signs
Temp Pulse Resp BP Pulse Ox
97.5 F 86 16 130/88 98
12/14/23 07:38 12/14/23 09:00 12/14/23 07:38 12/14/23 07:38 12/14/23 09:10
Vital Signs
Temp Pulse Resp BP Pulse Ox
97.5 F 86 16 130/88 98
12/14/23 07:38 12/14/23 09:00 12/14/23 07:38 12/14/23 07:38 12/14/23 09:10
Intake & Output
12/12/23 12/13/23 12/14/23 12/15/23
06:59 06:59 06:59 06:59
Intake Total 1440 / 1440 360 / 360
Output Total 900 / 900 650 / 650 1150 / 1150
Balance -900 / -900 790 / 790 -790 / -790
Physical Exam
Physical Exam
Gen: NAD, AAOx3
HEENT: NC/AT, sclera anicteric
Neck: No JVD
CV: RRR, NL s1/s2, no M/R/G
Lungs: CTAB
Abd: S/ND
Ext: No LE edema
Skin: Warm, dry
Neuro: Non-focal
[2023-12-14 11:15] VITALS: BP 126/85
--- NOTE | 2023-12-14 11:56 | CM ---
Chart reviewed. Patient is eagerly anticipating his surgery. Patient is independent of ADLS, lives with his in a 2 STH, 2 BRITTANY, 0 DME. Plan is for the patient to return home with CT Transitional RN. CM to follow
[2023-12-14 15:51] VITALS: BP 121/79
[2023-12-14] MEDS: LIPITOR 40 MG PO (17:00)
--- NOTE | 2023-12-14 18:30 | SUR.OPER ---
Pt received in SR. Pt denies any chest pain or sob. OOB ambulating independently. Heparin infusing as ordered at 14ml. Pt transferred to CVICU room 2260.
--- NOTE | 2023-12-14 20:00 | PTCARENOTE ---
Pt transferred from IVU; pt is scheduled for CABG 12/14; Pt is AAOx4; NSR on monitor, VSS; heart sounds audible, radial and SP pulses palpable, no edema noted; lung sound clear, spo2 95% on RA; +bs x4 quadrants, abdomen, soft non tender; pt voiding
clear yellow urine; skin CDI; PIV maintained; heparin gtt infusing; family at bedside; call romero within reach; will continue to monitor;
--- NOTE | 2023-12-14 22:30 | PTCARENOTE ---
Pt assessment unchanged; pt clipped and washed x1 with CHG soap; new leads and gown provided; home medication reviewed; will continue to monitor.
[2023-12-15] VITALS (11 sets, daily range): BP systolic 88–122; BP diastolic 50–70; BMI 26.0
--- NOTE | 2023-12-15 | PTCARENOTE ---
pt resting comfortably in bed, assessment unchanged; pt is in and out of SR and SB, HR dropped to the 30s and quickly returned to NSR, Pt was AAOx4; CVPA came to bedside; O2 @[address] on pt; will continue to monitor.
--- NOTE | 2023-12-15 04:00 | PTCARENOTE ---
Pt assessment unchanged; VSS; NSR/SB on monitor; 2nd CHG bath provided with new tele leads and gown; PTT lab drawn and sent; heparin infusing, will discontinue per CVPA instructions; call romero with in reach; awaiting OR.
[2023-12-15 04:20] LABS: APTT 94.7 Sec (23.4-35.0)
[2023-12-15] MEDS: PROTONIX 40 MG PO (05:53)
[2023-12-15] MEDS: MAGNESIUM OXIDE 500 MG PO (05:53)
[2023-12-15] MEDS: BACTROBAN 2% OINTMENT 1 APPLIC NASAL ×2 (05:53→21:07)
--- NOTE | 2023-12-15 06:05 | PTCARENOTE ---
Pre op meds given; BB held due to ongoing SB; pre-op check list removed; family at bedside; awaiting OR
--- NOTE | 2023-12-15 06:14 | W.PN.UPDATE ---
Update Note
Progress Note Update
CT Surgery update note:
Pt preop BB was not given d/t episodes of bradycardia @ 28 bpm, sinus
For AVR/CABG/ELAA by Dr. Lackey today
--- NOTE | 2023-12-15 06:50 | W.CVOR.SURPR ---
CVOR Surgeon Immed Pre Op
-
I have examined this patient prior to performance of the scheduled procedure.
The patient's condition is unchanged from the time of the dictated/written History and
Physical and the patient is able to undergo the scheduled procedure.
[2023-12-15 07:50] LABS: ACT+ - POC 104 Seconds (82-134)
[2023-12-15 07:52] LABS: B.E. - POC -4.8 mmol/L; Glucose - POC 82 mg/dl (65-99); HCO3 - POC 20 mmol/L (21-29); Hematocrit - POC 33 % PCV (42-52); Hemodilution- POC Yes; Hemoglobin Calculated - POC 11.2; Ionized Calcium - POC 1.08 mmol/L (1.12-1.27); PCO2 - POC 34 mmHg (35-45); PO2 - POC 441 mmHg (80-100); Potassium - POC 3.2 mmol/L (3.6-5.0); Sodium - POC 144 mmol/L (135-145); pH - POC 7.38 (7.35-7.45)
[2023-12-15 08:09] LABS: Urine Albumin Negative (Neg - Trace); Urine Bilirubin Negative (Negative); Urine Character Clear (Clear); Urine Color Yellow; Urine Glucose Negative (Negative); Urine Ketone Negative (Negative); Urine Leukocyte Negative (Negative); Urine Nitrite Negative (Negative); Urine Occult Blood Negative (Negative); Urine Urobilinogen 1+ (Neg - 1+)
--- NOTE | 2023-12-15 08:52 | CM ---
Reviewed chart. Mr. Hernandez is in the operating room today. Prior to admission he resides with his spouse in a two story home with two steps to enter. Prior to admission he was independent with ambulation and adls. He does not have any DME in the
home. Medical work-up in progress. The discharge plan is to return home with his spouse and a home visit by the Cardiothoracic Transitional Care Nurse when medically stable.
[2023-12-15 10:18] LABS: ACT+ - POC 448 Seconds (82-134)
[2023-12-15 10:27] LABS: ACT+ - POC 455 Seconds (82-134)
[2023-12-15 10:39] LABS: ACT+ - POC 490 Seconds (82-134)
[2023-12-15 11:05] LABS: Glucose - POC 179 mg/dl (65-99); HCO3 - POC 25 mmol/L (21-29); Hematocrit - POC 30 % PCV (42-52); Hemodilution- POC Yes; Hemoglobin Calculated - POC 10.3; Ionized Calcium - POC 1.06 mmol/L (1.12-1.27); PCO2 - POC 38 mmHg (35-45); PO2 - POC 367 mmHg (80-100); Potassium - POC 5.2 mmol/L (3.6-5.0); Sodium - POC 136 mmol/L (135-145); pH - POC 7.42 (7.35-7.45)
[2023-12-15 11:08] LABS: ACT+ - POC 539 Seconds (82-134)
[2023-12-15 11:36] LABS: B.E. - POC -1.2 mmol/L; Glucose - POC 170 mg/dl (65-99); HCO3 - POC 23 mmol/L (21-29); Hematocrit - POC 34 % PCV (42-52); Hemodilution- POC Yes; Hemoglobin Calculated - POC 11.4; Ionized Calcium - POC 1.12 mmol/L (1.12-1.27); PCO2 - POC 37 mmHg (35-45); PO2 - POC 364 mmHg (80-100); Potassium - POC 4.1 mmol/L (3.6-5.0); Sodium - POC 139 mmol/L (135-145); pH - POC 7.41 (7.35-7.45)
[2023-12-15 11:41] LABS: ACT+ - POC 550 Seconds (82-134)
[2023-12-15 12:07] LABS: B.E. - POC -1.5 mmol/L; Glucose - POC 147 mg/dl (65-99); HCO3 - POC 23 mmol/L (21-29); Hematocrit - POC 34 % PCV (42-52); Hemodilution- POC Yes; Hemoglobin Calculated - POC 11.5; Ionized Calcium - POC 1.12 mmol/L (1.12-1.27); O2 Saturation %Calculated-POC 99.8 5 (92-96); PCO2 - POC 36 mmHg (35-45); PO2 - POC 233 mmHg (80-100); Sodium - POC 140 mmol/L (135-145); pH - POC 7.41 (7.35-7.45)
[2023-12-15 12:10] LABS: ACT+ - POC 542 Seconds (82-134)
[2023-12-15 12:35] LABS: B.E. - POC -1.3 mmol/L; Glucose - POC 124 mg/dl (65-99); HCO3 - POC 22 mmol/L (21-29); Hematocrit - POC 32 % PCV (42-52); Hemodilution- POC Yes; Hemoglobin Calculated - POC 10.8; Ionized Calcium - POC 1.09 mmol/L (1.12-1.27); O2 Saturation %Calculated-POC 99.9 5 (92-96); PCO2 - POC 33 mmHg (35-45); PO2 - POC 268 mmHg (80-100); Potassium - POC 4.2 mmol/L (3.6-5.0); Sodium - POC 140 mmol/L (135-145); pH - POC 7.44 (7.35-7.45)
[2023-12-15 12:41] LABS: ACT+ - POC 634 Seconds (82-134)
[2023-12-15 13:03] LABS: B.E. - POC -3.4 mmol/L; Glucose - POC 124 mg/dl (65-99); HCO3 - POC 20 mmol/L (21-29); Hematocrit - POC 32 % PCV (42-52); Hemodilution- POC Yes; Ionized Calcium - POC 1.09 mmol/L (1.12-1.27); O2 Saturation %Calculated-POC 99.9 5 (92-96); PCO2 - POC 29 mmHg (35-45); PO2 - POC 256 mmHg (80-100); Potassium - POC 3.9 mmol/L (3.6-5.0); Sodium - POC 139 mmol/L (135-145); pH - POC 7.45 (7.35-7.45)
[2023-12-15 13:07] LABS: ACT+ - POC 550 Seconds (82-134)
[2023-12-15 13:31] LABS: B.E. - POC 1.5 mmol/L; Glucose - POC 133 mg/dl (65-99); HCO3 - POC 26 mmol/L (21-29); Hematocrit - POC 30 % PCV (42-52); Hemodilution- POC Yes; Hemoglobin Calculated - POC 10.2; Ionized Calcium - POC 1.08 mmol/L (1.12-1.27); O2 Saturation %Calculated-POC 99.9 5 (92-96); PCO2 - POC 39 mmHg (35-45); PO2 - POC 324 mmHg (80-100); Potassium - POC 3.7 mmol/L (3.6-5.0); Sodium - POC 141 mmol/L (135-145); pH - POC 7.43 (7.35-7.45)
[2023-12-15 13:34] LABS: ACT+ - POC 520 Seconds (82-134)
[2023-12-15 14:35] LABS: ACT+ - POC 137 Seconds (82-134)
[2023-12-15 14:40] LABS: B.E. - POC -3.6 mmol/L; Glucose - POC 173 mg/dl (65-99); HCO3 - POC 21 mmol/L (21-29); Hematocrit - POC 28 % PCV (42-52); Hemodilution- POC Yes; Hemoglobin Calculated - POC 9.6; Ionized Calcium - POC 1.22 mmol/L (1.12-1.27); O2 Saturation %Calculated-POC 99.9 5 (92-96); PCO2 - POC 36 mmHg (35-45); PO2 - POC 358 mmHg (80-100); Potassium - POC 3.4 mmol/L (3.6-5.0); Sodium - POC 143 mmol/L (135-145); pH - POC 7.38 (7.35-7.45)
[2023-12-15] MEDS: LASIX PO (14:56)
[2023-12-15] MEDS: NORVASC PO (14:57)
--- NOTE | 2023-12-15 15:00 | W.IMMPOSTOP ---
Addendum entered and electronically signed by Jarred Lackey MD 12/15/23 16:46:
Dictated: [id number]
Original Note:
Surgical Immed Post Op Note
-
CARDIAC SURGERY OPERATIVE NOTE:
Preoperative Dx:
MV CAD
[id number]
Reduced LVEF (30%)
Hx of AF s/p prior PVI x 2
Postoperative Dx:
Same
Procedures:
1) Median sternotomy
2) Takedown of KATI (narrow pedicle)
3) Endoscopic harvest/prep of RLE GSV
4) CABG x 4 (KATI to LAD, GSV to OM, sGSV to R PDA, L PLB)
5) ELAA w/ 45mm AtriClip
6) AVR (#25 Inspiris Resilia)
Surgeon:
Jarred Lackey M.D.
Assistants:
Karla Macias P.A.-C.; endoscopic harvest/prep of RLE GSV, medical assistant secretary throughout, closure
Yannick Mccabe-CSonido; closure of RLE GSV incisions, closure ([id number])
Anesthesia:
Cesar Leroy M.D. and Hetal MoranN.Vic
Perfusion:
Paul TaylorP.; XC: 185min, CPB: 209min
Findings:
Osteopenic sternum w/ largely absent marrow
KATI was healthy conduit w/ ELD 2.5mm, brisk flow
GSV was healthy conduit w/ numerous branches, ELD 3.0-3.5mm
LAD was visible on epicardial surface, scattered calcifications, ELD 3.0mm
OM was visible on epicardial surface, dense proximal, scattered distal calcifications, ELD 3.0mm
R PDA was visible on epicardial surface, dense proximal, scattered distal calcifications, ELD 2.25mm
L PLB was visible on epicardial surface, scattered calcifications, ELD 2.00mm
Excellent flow into all distal targets & their tributaries observed w/ hand-infused cardioplegia & upon release of MARY clamp
Trileaflet AV w/ extensive leaflet calcifications. There was no significant calcifications extending into the NCC and RCC annulus. There were moderately dense annular calcifications at the midpoint of the LCC w/ extension down onto the
aortomitral curtain (debrided).
POST-DEANN: LVEF 50%, no AI/PVL, mean gradient 8mmHg, trace TR, trace MR, No flow in DOUGLAS, normal PV, Ao OK; CI 2.8
Implants:
INSPIRIS RESILIA AVR (#25mm), Model [id number], SN: [id number]
AtriClip 45mm (LOT [id number])
Temporary epicardial V-wires x 2
CT x 4 (B/L pleural, inferior mediastinal, superior mediastinal)
Sternal wires x 10
Complications:
None
Transfusions:
None
Condition:
GTTS: levophed 12, epinephrine 6, precedex 0.3, insulin 1
83 sinus w/ BBBm, 94/59, 47/28, CVP 23, CO/CI: 5.6/2.8
Stable/guarded to CVICU
--- NOTE | 2023-12-15 15:02 | CON.INTV ---
Consultation
Consultation Request
Date/Time Consultation Requested: 12/15/2023
Date/Time Consultation Performed: 12/15/2023
Requesting Provider: Dr. Lackey
Performing Provider: Dr. Mejia James
Reason for Consultation: Status post coronary artery bypass
Medical History
-
History of Present Illness:
83-year-old man with past medical history noted, initially presented for left heart catheterization. It found to have severe multivessel coronary artery disease. Also found to have moderate to severe aortic stenosis. Reduced ejection fraction.
Evaluated by CT surgery. He was deemed candidate for surgical revascularization. Underwent coronary artery bypass and aortic valve replacement on 12/15/2023.
Now in the critical care unit, intubated on mechanical ventilation.
Chest tube in place without significant air leak.
Records reviewed.
Past Medical History
Past Medical History: Other (See assessment and plan section)
Social History
Tobacco: Non-smoker
Alcohol: Occasional
Drug: None
Family History
Family History: Unable to Obtain
Allergies / Home Medications
Allergies
Allergy/AdvReac Type Severity Reaction Status Date / Time
No Known Allergies Allergy Verified 12/10/23 07:11
Home Medications
�Medication �Instructions �Recorded �Confirmed �Last Taken �Type
apixaban 5 mg tablet (Eliquis) 5 mg PO BID Blood clot 08/02/15 12/14/23 12/08/23 19:00 History
prevention/tx
losartan 50 mg tablet 50 mg PO BID Blood pressure 08/02/15 12/14/23 12/11/23 20:24 History
simvastatin 40 mg tablet 40 mg PO QPM High cholesterol 09/25/15 12/14/23 12/09/23 19:00 History
bkblzrht-nfu-kvfot acid 0.4 1 ea PO DAILY Supplement 02/15/20 12/14/23 12/09/23 07:00 History
mg-lycopene 300 mcg-lutein 250 mcg
tablet (Centrum Silver)
amlodipine 5 mg tablet 5 mg PO DAILY Blood pressure #30 12/15/21 04/30/24 04/30/24 07:46 Rx
tabs
dofetilide 250 mcg capsule 250 mcg PO Q12 Arrhythmia #60 caps 07/30/21 12/14/23 12/14/23 20:37 Rx
Review of Systems
-
Unable to Obtain full review of systems at this time due to: Patient Intubation
Vitals / Labs / Diagnostic Testing
Vital Signs
Temp Pulse Resp BP Pulse Ox
97.3 F 70 16 121/79 100
12/15/23 04:00 12/14/23 19:00 12/15/23 04:00 12/14/23 15:51 12/15/23 04:00
Laboratory Results
12/15/23
03:54
APTT 94.7 H
Diagnostic Testing:
Physical Exam
-
HEENT: Normocephalic and Other (ET tube in place)
Cardiovascular: S1/S2
Respiratory: Clear
GI: Soft and Non Distended
Neurology: Awake and Other (Sedated, on mechanical ventilation.)
Skin: Warm
General: Respiratory Distress (n)
Assessment
-
Status post coronary artery bypass and AVR 12/15/[address] Lackey
Postoperative mechanical ventilation
Postoperative anemia
Conditions present prior admission:
Severe multivessel coronary artery disease
Ischemic cardiomyopathy ejection fraction 40%
Atrial fibrillation status post PVI x 2 on chronic anticoagulation
Hypertension
Hyperlipidemia
Echocardiogram 11/25/2023:Report reviewed, mild LVH. Mildly reduced ventricular ejection fraction 45-50%. Global hypokinesis. Mild to moderate MR. Mild to moderate aortic stenosis. Mild to moderate TR with pulmonary estimated systolic pressure
42 mmHg.
Assessment and plan:
He is doing well postop-currently on mechanical ventilation and appears comfortable.
ABG reviewed:
Continue SIMV mode with no change
Spontaneous breathing trial per protocol once sedation wears off.
Anemia noted-no evidence of acute bleeding
Follow H&H serially
Hemodynamics -on low-dose Levophed.
Good urinary output.
Renal function stable.
Wean off vasopressors as able.
Chest tube with no excessive drainage-no air leak.
Chest x-ray reviewed: With no pneumothorax or fluid collections.
Remain nothing by mouth
Head of the bed elevation
Glycemic control per protocol
DVT prophylaxis when safe from the surgical perspective.
Critical care statement: A total of 32 minutes of critical care time was provided for this patient today. This includes management of unstable vital signs, evaluation of the patient at bedside, reviewing the patient's pertinent medical records
including ventilator settings, arterial blood gases, radiographs, microbiology, laboratory evaluations and discussion with primary team, critical care nursing, and respiratory therapy.
[2023-12-15] MEDS: TIKOSYN PO (15:24)
[2023-12-15] MEDS: TYLENOL PO (15:24)
[2023-12-15 15:51] LABS: Glucose - Point of Care 208 mg/dl (70-99)
--- NOTE | 2023-12-15 16:00 | PTCARENOTE ---
Patient received from CVOR s/p AVR/CABG x4/LAAL. NSR via cm, SaO2 @ 100% on ventilator, titrating FiO2 as able. RIJ Cordis/Lafitte-Yasmine catheter, L radial arterial lines present - leveled, flushed, and calibrated w/good waveforms returned. Epicardial
V-wire to pulse generator, to box, currently off (thresholds tested in CVOR). Sup/Ant mediastinal chest tubes, L and R pleural chest tubes (to seperate pleurevacs), to -20cm suction w/no air leaks noted. Acuna catheter to gravity. All procedural
sites stable. Labs drawn, EKG performed, pcxr obtained. See work list for full assessment, interventions performed, and intravenous infusion rates and titrations.
[2023-12-15 16:01] LABS: B.E. -5.3 mmol/L; HCO3 20.6 mmol/L (21-28); O2 Saturation % 99.6 % (94-98); PCO2 41 mmHg (35-48); PO2 166 mmHg (83-108); Potassium 3.4 mMOL/L (3.5-5.1); Sodium 138 mMOL/L (136-145); pH 7.31 (7.35-7.45)
[2023-12-15 16:03] LABS: Hematocrit 29.8 % (39.0-52.0); Hemoglobin 9.6 g/dL (13.0-18.0); Platelet Count 122 10^3/uL (130-400)
[2023-12-15 16:16] LABS: Fibrinogen 207 MG/DL (199-459)
[2023-12-15 16:17] LABS: APTT 36.7 Sec (23.4-35.0); INR 1.91; PT 22.1 Sec (11.4-14.6)
[2023-12-15 16:18] LABS: Blood Urea Nitrogen 22 mg/dl (9-20); Estimated Creatinine Clearance 60 ml/min; Glucose 196 mg/dl (70-99); Magnesium 3.2 mg/dl (1.6-2.3)
[2023-12-15] MEDS: NSS 500 IV (16:18)
[2023-12-15] MEDS: DILAUDID 0.5 MG IV (16:19)
[2023-12-15] MEDS: KCL 50 IV ×2 (16:22→17:36)
[2023-12-15] MEDS: SODIUM BICARBONATE 50 MEQ IV (16:22)
[2023-12-15] MEDS: ANCEF 10 IV ×2 (16:22)
[2023-12-15 16:25] LABS: Lactic Acid 4.4 mmol/L (0.7-2.0)
[2023-12-15] MEDS: NEURONTIN PO (16:38)
--- NOTE | 2023-12-15 16:54 | W.PN.CARDCBS ---
Addendum entered and electronically signed by Diana Henderson MD 12/15/23 17:16:
I saw and examined the patient.
The Paper Folding Machine Operator's note was reviewed and I agree with the note.
Comment: Briefly patient is a 83-year-old gentleman with past medical history of hypertension, hyperlipidemia, paroxysmal atrial fibrillation status post 2 PVI's initially in 2016 and subsequently in 20 with recurrent atrial fibrillation on chronic
Tikosyn therapy and Eliquis for anticoagulation, multivessel coronary artery disease by cath on December 10, 2023 involving distal left main in the setting of LVEF of 45 to 50% who was referred for CABG and is now postop day 0 post four-vessel CABG
with KATI to LAD, vein graft to OM, sequential to RPDA, LPLB, left atrial appendage 45mm Atriclip and AVR with #[address] Jarred Lackey on December 15, 2023
Vital signs and lab work reviewed. On exam patient is intubated and sedated on multiple pressors, right IJ cordis in place with a Addison-Yasmine catheter in place through it, chest tubes in place, sternotomy scar is dressed with dressing clean, dry and
intact, abdomen is soft, nontender with active bowel sounds, warm extremities
Recommendations:
1. Continue with supportive postoperative care.
2. Wean ventilator and pressors as able
3. Continue to closely monitor blood counts and renal function along with urine output.
Diana Henderson MD, [facility], [facility]
Original Note:
Today's Communication / Plan
-
continue post op care
wean pressors as able
follow hgb/plts
Impression / Plan
-
PCP: Dr. Alberto
Cardiology: Dr. Castillo
EP: Dr. Davis
Impression:
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
90% distal LM, 80% LAD, 90% ostial circ, 95% mid RCA
Paroxysmal Afib
s/p PVI 09/25/15
s/p PVI 08/18/19
Chronic Tikosyn therapy
s/p LINQ implant in 2015 and replaced in 02/23/20
Chronic Eliquis OAC
HTN
Hyperlipidemia
Echo 06/08/19: EF 60-65%, mild MR, mild TR
Echo 11/25/2023: EF 45-50%, mild cLVH, global hypokinesis, mild-moderate MR, mild-moderate with peak/mean gradients 37/20 mmHg, trace AI, mild-moderate TR, estimated PAP 42 mmHg
Plan:
-Presented for [facility] and found to have severe MV CAD as noted above. CT surgery consulted for evaluation of CABG.
-Status post CABG x 4 - KATI to LAD, GSV to OM, sGSV to R PDA, L PLB, DOUGLAS clip, AVR 12/15/23
-remains intubated, sedated
-on epi @3, levo @8. continue to wean as able
-CI 2.71
-EKG SR with 1st degree av block, RBBB, relatively stable compared to prior
-hgb 9.6, plts 122K
-follow volume status, was receiving 40mg po lasix daily prior to surgery but does not appear to have been on as OP
-was on norvasc and losartan preop, will reassess resuming in post op setting closer to DC
-continue statin
-he has known PAF and PVCs. currently in SR. was on tikosyn and eliquis as OP. QTc stable by post op EKG 490ms, follow. tikosyn 250mcg Q12H ordered to continue
-continue post op care
-d/w nursing
Progress Note - Zigzag Elastic Attacher
Subjective
Date of Service: December 15, 2023
intubated, sedated
Objective
Labs:
12/15/23 15:50
Labs
Hgb 9.6 g/dL (13.0-18.0) L D 12/15/23 15:50
Hct 29.8 % (39.0-52.0) L 12/15/23 15:50
Plt Count 122 10^3/uL (130-400) L 12/15/23 15:50
PT 22.1 Sec (11.4-14.6) H 12/15/23 15:50
INR 1.91 12/15/23 15:50
APTT 36.7 Sec (23.4-35.0) H 12/15/23 15:50
Sodium 136 mmol/L (135-145) 12/14/23 04:51
Potassium 4.2 mmol/L (3.5-5.1) 12/14/23 04:51
BUN 22 mg/dl (9-20) H 12/15/23 15:50
Creatinine 1.0 mg/dL (0.7-1.3) 12/15/23 15:50
Glucose 196 mg/dl (70-99) H 12/15/23 15:50
Vital Signs and I&O:
Vital Signs
Temp Pulse Resp BP Pulse Ox
97.2 F 87 19 102/70 100
12/15/23 16:00 12/15/23 16:38 12/15/23 16:38 12/15/23 16:21 12/15/23 16:44
Vital Signs
Temp Pulse Resp BP Pulse Ox
97.2 F 87 19 102/70 100
12/15/23 16:00 12/15/23 16:38 12/15/23 16:38 12/15/23 16:21 12/15/23 16:44
Intake & Output
12/13/23 12/14/23 12/15/23 12/16/23
07:59 07:59 07:59 07:59
Intake Total 1440 / 1440 360 / 360 78.5 / 78.5
Output Total 650 / 650 1150 / 1150 265 / 265
Balance 790 / 790 -790 / -790 -186.5 / -186.5
Physical Exam
Physical Exam
GEN: No distress, intubated, sedated
HEENT: supple, mmm
LUNGS: CTA B/L, no wheezes/rales
CV: Reg, S1/S2, no murmur
ABD: soft, BS+, NT/ND
EXT: No cyanosis, clubbing, edema. RLE grupo wrap in place
NEURO: sedated
SKIN: Warm, pink, dry. No rash. Sternotomy dressing c/d/i. Temp wire in place. CTs in place
[2023-12-15 16:59] LABS: Glucose - Point of Care 200 mg/dl (70-99)
[2023-12-15] MEDS: LEVOPHED 250 IV (17:21)
[2023-12-15] MEDS: OFIRMEV 100 IV (17:21)
[2023-12-15] MEDS: LIPITOR PO (17:46)
[2023-12-15] MEDS: ALBUMIN 5% 250 IV ×2 (17:48→18:17)
--- NOTE | 2023-12-15 18:01 | W.PN.UPDATE ---
Update Note
Progress Note Update
Crystalloid:� 2900
U.O.:� 450
UF:� 3200
Blood:� none
Wires:� V
Inotropes: Epi �
Pressors:� Levophed
Sedatives:� Precedex
�
NEURO: sedated on precedex, pupils +2mm B/L
RESP: #8OT @22cm>12/550/60/5 Lungs clear B/L. 2 mediastinal (75cc on arrival) and R/L pleural (45cc on arrival) chest tubes to -20cm suction. Sanguineous drainage
CV: RRR +S1, S2, no S3, no�rub, no murmur. Dermabond to median sternotomy. RIJ w/Ericson locked @ 51cm. PA ; CVP 4; C.O 5.2/CI 2.5
ABD: round, soft, no BS
EXT: no edema, +2/4 DP pulses B/L, no femoral bruit, left radial A-line intact
: Acuna with clear yellow urine
�
A/P: POD #0 s/p AVR #25 inspiris and CABG x4 (Mathias-LAD, SVG- OM1, SVG- LPL- PDA) and LAAC
DEANN: EF�50% on epi
- wean and extubate
- monitor CT output and urine output
- f/u post-op labs
- will need instruction regarding antibiotic prophylaxis for dental and invasive procedures
- f/u EKG
- no post-op amio d/t being on tikosyn
- Cards consulted
�
# acute surgical blood loss anemia-expected
- trend CBC
�
# Hyperglycemia (A1C 6.2)
- insulin infusion x 24h
�
# Hyperlipidemia
- resume�statin
[2023-12-15 18:05] LABS: Glucose - Point of Care 196 mg/dl (70-99)
[2023-12-15 18:07] LABS: B.E. -3.2 mmol/L; HCO3 21.1 mmol/L (21-28); O2 Saturation % 99.2 % (94-98); PCO2 34 mmHg (35-48); PO2 138 mmHg (83-108)
--- NOTE | 2023-12-15 18:44 | PTCARENOTE ---
Patient displayed evidence overbreathing ventilator, placed to CPAP wean. No apnea noted, patient pulling good TV. ABG obtained, results conveyed to COOKIE Nate. Patient extubated to 6lnc w/out incident, SaO2 100%. Family to bedside.
--- NOTE | 2023-12-15 18:47 | RESPNOTE ---
patient extubated at 1830 without incident. 99% on 6L.
[2023-12-15 19:09] LABS: Glucose - Point of Care 150 mg/dl (70-99)
[2023-12-15 20:13] LABS: Ionized Calcium 1.13 mMOL/L (1.15-1.33)
[2023-12-15 20:15] LABS: Hemoglobin 8.9 g/dL (13.0-18.0); Platelet Count 115 10^3/uL (130-400)
[2023-12-15 20:15] LABS: Glucose - Point of Care 116 mg/dl (70-99)
[2023-12-15] MEDS: ZOFRAN 4 MG IV ×2 (20:30→22:30)
[2023-12-15 20:32] LABS: Blood Urea Nitrogen 22 mg/dl (9-20); Calcium 8.6 mg/dl (8.4-10.2); Carbon Dioxide 23 mmol/L (22-30); Chloride 107 mmol/L (98-107); Estimated Creatinine Clearance 54 ml/min; Glucose 125 mg/dl (70-99); Potassium 4.4 mmol/L (3.5-5.1); Sodium 138 mmol/L (135-145); eGFR > 60.00
--- NOTE | 2023-12-15 20:53 | PTCARENOTE ---
Assumed care of patient at 1900. Patient found in bed at time of assessment with family at bedside. Patient is AOx3, DO Time, easily reoriented, patient is confused reports 'in my mind I am going back in time'. Comforting reassurance provided.
Patient is also drowsy, follows commands appropriately, and moves all extremities. Lung sounds are diminished at the bases, patient is on 6L O2 saO2 at 100%, patient has CTx4: L/R pleural to one atrium and medsx2 to one atrium with red sanguineous
drainage. Heart sounds have a regular rate, patient noted with frequent ectopy EKG performed showed 2nd degree type [address] PA notified. A rub is audible on auscultation. Patient has normal palpable pulses and no noted edema. Patient has
soft nontender abdomen with hypoactive BS. There is a bobby in place draining clear yellow urine. Patient has a sternal incision with aquacell dressing that is CDI, a R groin puncture with 4x4 dressing that is CDI, and RLE incision with aquacell
dressing and BRANDIN wrap that is CDI. Patient has a R IJ cordis with swan, L radial daljit, and L arm PIV. Patient has the following gtts: Levo@10, Epi@2, insulin@5, Cordis/VIP KVO. Vital signs as follows: T-98.4 RR-20 HR-79 BP-95/50 MAP-65 CVP-6
PAP-31/16 CI-2.80.
[2023-12-15] MEDS: CALCIUM CHLORIDE 10% SYRINGE 50 MG IV (21:06)
[2023-12-15] MEDS: CALCIUM CHLORIDE 10% SYRINGE 50 ML IV (21:06)
[2023-12-15] MEDS: NEURONTIN 100 MG PO (21:07)
[2023-12-15] MEDS: TYLENOL 1000 MG PO (21:07)
[2023-12-15] MEDS: LOW STRENGTH ASPIRIN 81 MG PO (21:07)
[2023-12-15] MEDS: SENOKOT-S 1 TABLET PO (21:07)
[2023-12-15 21:21] LABS: Glucose - Point of Care 130 mg/dl (70-99)
[2023-12-15 22:07] LABS: Glucose - Point of Care 116 mg/dl (70-99)
--- NOTE | 2023-12-15 23:00 | PTCARENOTE ---
Converted to SR with first degree at approx 2245.
[2023-12-16] VITALS (15 sets, daily range): BP systolic 75–119; BP diastolic 49–62; BMI 27.1
[2023-12-16] MEDS: ALBUMIN 5% 250 IV (00:08)
[2023-12-16] MEDS: LEVOPHED 250 IV ×3 (00:25→17:56)
--- NOTE | 2023-12-16 00:35 | PTCARENOTE ---
Addendum entered by Rocco Delacruz RN 12/16/23 00:38:
Calcium repleted.
Original Note:
Patient reassessed. Mentation and orientation have improved no longer confused fully oriented at this time. O2 weaned to 3L. Previously in second degree type 1 on the monitor has converted to sinus rhythm with first degree av block. 2xzofran
administered for episodes of nausea one episode of small clear emesis. 250 cc albumin infusing per CT PA. Patient has no complaints at this time.
[2023-12-16 00:36] LABS: Glucose - Point of Care 99 mg/dl (70-99)
[2023-12-16 02:23] LABS: Glucose - Point of Care 136 mg/dl (70-99)
[2023-12-16 03:56] LABS: B.E. 1.4 mmol/L; HCO3 26.6 mmol/L (21-28); Ionized Calcium 1.27 mMOL/L (1.15-1.33); O2 Saturation % 98.5 % (94-98); PCO2 44 mmHg (35-48); PO2 108 mmHg (83-108); pH 7.39 (7.35-7.45)
--- NOTE | 2023-12-16 04:00 | PTCARENOTE ---
Patient reassessed. VSS. Remains SR with occasional PVCs noted. One run of what appears to be a junctional rhythm noted and reported to CT PA. AM EKG obtained. AM labs obtained. AM hygiene care provided. Patient is stable.
[2023-12-16 04:04] LABS: Glucose - Point of Care 110 mg/dl (70-99)
[2023-12-16 04:25] LABS: Lactic Acid 1.6 mmol/L (0.7-2.0)
[2023-12-16 04:26] LABS: Hematocrit 24.5 % (39.0-52.0); Hemoglobin 8.1 g/dL (13.0-18.0); Mean Corp Hgb Conc. 33.1 g/dL (33.0-37.0); Mean Corpuscular Hgb 28.7 pg (27.0-31.0); Mean Corpuscular Volume 86.9 fL (80.0-94.0); Mean Platelet Volume 12.8 fL (7.4-10.4); Platelet Count 92 10^3/uL (130-400); Red Blood Cell Count 2.82 10^6/uL (4.70-6.10); Red Cell Dist. Width 13.9 % (11.5-14.5); White Blood Cell Count 17.8 10^3/uL (4.8-10.8)
[2023-12-16 04:39] LABS: Blood Urea Nitrogen 21 mg/dl (9-20); Carbon Dioxide 20 mmol/L (22-30); Chloride 114 mmol/L (98-107); Estimated Creatinine Clearance 75 ml/min; Glucose 94 mg/dl (70-99); Magnesium 2.4 mg/dl (1.6-2.3); Potassium 4.2 mmol/L (3.5-5.1); Sodium 140 mmol/L (135-145); eGFR > 60.00
--- NOTE | 2023-12-16 05:12 | W.PN.CT ---
Addendum entered and electronically signed by Jarred Lackey MD 12/16/23 07:13:
I saw and examined the patient.
The PA's note was reviewed and I agree with the note.
Comment:
POD#1 s/p AVR (#25 Inspiris), CABG x 4 (KATI to LAD, GSV to OM, sGSV to R PDA, L PLB), ELAA
Doing well. Looks good this AM.
- Wean levophed as tolerated for MAPs > 65, SBP > 110
- Wean epinephrine to 1 today for CI > 2.0
- EP consultation given AVB/junctional/preoperative bradycardia to 20s
Original Note:
Today's Communication / Plan
-
-pod #1
-no issues overnight
-monitor rhythm - mostly in nsr 70s -80s overnight, had brief Mobitz 1 AVB last night and ? brief junctional rhythm high 40s at 4:20 am (has known 1st degree AVB and RBBB preop)- will review with Cardiology
-has V-pw for backup
-s/p 3 Albumins total postop
-CI 2.39, CO 4.87, SVR 1018. Drips: Epi 2, Levo 10, Insulin
-CT output: 2 meds 105/270, 2 pleur 125/250 in 12/24 hrs
-on Tikosyn 250 mcg bid for paf- monitor Qtc
-h/h 8.1/24.5 today (8.9/27.0 on 12/14 and 12.9/39.4 preop)
-current meds (ASA, Lipitor, Tikosyn, Protonix). Eventually, to restart Eliquis for paf. Will hold Lopressor while on Epi/Levo
-encourage IS, OOB
Assessment / Plan
-
Assessment:
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 Lackey on 12/15/23, pod #1
-POST-DEANN: LVEF 50%, no AI/PVL, mean gradient 8mmHg, trace TR, trace MR, No flow in DOULGAS, normal PV, Ao OK; CI 2.8
-Ischemic cardiomyopathy, EF 35% preop - improved to 50% by intraop DEANN
-A-fib S/P PVI x2 ( 09/25/15 and 08/18/19)- on Eliquis/Tikosyn at home
-S/p Linq monitor implant 2015
-HTN
-Hyperlipidemia
-Prostatectomy for prostate CA
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
-Acute postop blood loss anemia
-Acute on chronic thrombocytopenia
-Acute postop atelectasis
-Acute postop metabolic acidosis- resolved
-Acute postop hypokalemia/ hypocalcemia-resolved
-Acute postop transient Mobitz 1, ? brief junctional rhythms high 40s
-Acute postop hypovolemia with subsequent hypervolemia
Discussed patient care with: Nursing and Care Team
Subjective
Procedure
- s/p AVR (#25 Inspiris Resilia); CABG x 4 (KATI to LAD, GSV to OM, sGSV to R PDA, L PLB); ELAA w/ 45mm AtriClip by Dr. Lackey on 12/15/23
-
Date of Service: December 16, 2023
Objective Data
-
PT 22.1 Sec (11.4-14.6) H 12/15/23 15:50
INR 1.91 12/15/23 15:50
APTT 36.7 Sec (23.4-35.0) H 12/15/23 15:50
Vital Signs
Vital Signs
Temp Pulse Resp BP Pulse Ox
98.9 F 78 21 99/49 100
12/16/23 01:04 12/16/23 01:04 12/16/23 01:04 12/16/23 01:04 12/16/23 01:04
CT Intake/Output/Weight
12/15/23 12/15/23 12/16/23
06:59 18:59 06:59
Intake Total 595.0 / 1055.1 460.1 / 1055.1
Output Total 550 / 1165 615 / 1165
Balance 45.0 / -109.9 -154.9 / -109.9
SaO2: 100
Physical Exam
-
General: Awake and AOx3
Cardiovascular: Regular rate & rhythm, No Murmurs and No Rub
Respiratory: Decreased Breath Sounds
Sternum: Stable
Incision: Clean, Dry and Intact
Extremities: No Edema
Abdomen: soft, nontender, nondistended, + bowel sounds
Data Reviewed
-
Lab Results: Results Reviewed
Medications: Active Meds Reviewed
Chest X-Ray: Report Reviewed and Image Reviewed
ECG: Report Reviewed and Image Reviewed
[2023-12-16] MEDS: TYLENOL 1000 MG PO ×3 (06:17→21:56)
[2023-12-16 06:47] LABS: Glucose - Point of Care 91 mg/dl (70-99)
--- NOTE | 2023-12-16 07:34 | W.PN.ANS.POP ---
Anesthesia Post Operative
- Anesthesia Post Op Note
Vital Signs Stable-See Nursing Note: Yes
Airway Patent: Yes
Adequate Pain Control: Yes
Change in Mental Status: No
Current Postoperative Nausea & Vomiting: No
Anesthesia Complications: No
General Anesthetic Recall: No
Unplanned Admission: No
Post Op Hydration Adequate: Yes
[2023-12-16] MEDS: PROTONIX 40 MG PO (07:49)
[2023-12-16] MEDS: MAGNESIUM OXIDE 500 MG PO ×2 (07:49→21:56)
[2023-12-16] MEDS: LOW STRENGTH ASPIRIN 81 MG PO (07:49)
[2023-12-16] MEDS: NEURONTIN 100 MG PO ×3 (07:49→21:56)
[2023-12-16] MEDS: SENOKOT-S 1 TABLET PO ×2 (07:49→21:56)
[2023-12-16 07:55] LABS: Glucose - Point of Care 104 mg/dl (70-99)
--- NOTE | 2023-12-16 08:48 | PTCARENOTE ---
Rec'd pt this shift awake and alert with Rt IJ swan and left radial daljit. Pt on Levo at 10mcg/min, EPI at 2 mcg/min and Insulin. CI >2.0. ZACH Edwards at bedside. EPI decreased to 1mcg/min. Pt with intermittent episodes of JR. Pt placed on VVI,
rate 40. SORT WORKER aware. CI >2.0 on 1mcg/min of EPI. Pt NSR on monitor. Insulin drip titrated according to glycemic protocol. AM meds given. Pt tolerating clear liquid diet. Pt on RA, lungs clear. Encouraged coughing and deep breathing and use of IS. See
worklist for VS/I and O and assessments.
--- NOTE | 2023-12-16 09:27 | W.PN.CARDCBS ---
Addendum entered and electronically signed by Bradly Castillo MD 12/16/23 11:24:
I saw and examined the patient.
The Field Sales Executive's note was reviewed and I agree with the note.
Comment:
GEN: No distress, awake, Ox3
HEENT: supple, anicteric, mmm
LUNGS: scatt rhonchi
CV: Reg, S1/S2, 1/6 syst LSB, no rub
ABD: soft, BS+, NT/ND
EXT: No edema
NEURO: Gross non-focal
SKIN: sternotomy
Plan:
Overall doing well status post CABG. He does have some first-degree AV block and I would hold his Tikosyn for another 12 to 24 hours. Hopefully restart it tomorrow. He remains in sinus rhythm.
Continue to wean pressors.
Hemoglobin 8.1. Continue to follow. Eventually restart Eliquis when okay with CT surgery
Original Note:
Today's Communication / Plan
-
continue post op care
holding tikosyn/BB. follow rhythm
wean pressors
Impression / Plan
-
PCP: Dr. Alberto
Cardiology: Dr. Castillo
EP: Dr. Davis
Impression:
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
90% distal LM, 80% LAD, 90% ostial circ, 95% mid RCA
Paroxysmal Afib
s/p PVI 09/25/15
s/p PVI 08/18/19
Chronic Tikosyn therapy
s/p LINQ implant in 2015 and replaced in 02/23/20
Chronic Eliquis OAC
HTN
Hyperlipidemia
Echo 06/08/19: EF 60-65%, mild MR, mild TR
Echo 11/25/2023: EF 45-50%, mild cLVH, global hypokinesis, mild-moderate MR, mild-moderate with peak/mean gradients 37/20 mmHg, trace AI, mild-moderate TR, estimated PAP 42 mmHg
Plan:
-Presented for [facility] and found to have severe MV CAD as noted above. CT surgery consulted for evaluation of CABG.
-Status post CABG x 4 - KATI to LAD, GSV to OM, sGSV to R PDA, L PLB, DOUGLAS clip, AVR 12/15/23
-remains on epi @1, levo @8. wean as able. CI remains stable
-EKG 12/15 sinus rhythm with first-degree AV block and right bundle branch block. on review of tele overnight, with several brief episodes of junctional rhythm. OP tikosyn and BB remain on hold at present. temp wire remains in place. follow on tele
-hgb 8.1
-he had been on eliquis prior to admission. resume OAC when ok per surgery team
-follow volume status, was receiving 40mg po lasix daily prior to surgery but does not appear to have been on as OP
-was on norvasc and losartan preop, will reassess resuming in post op setting closer to DC
-continue statin
-continue post op care. encouraged IS
-d/w nursing. d/w patient and son at bedside
Progress Note - Transcription Coordinator
Subjective
Date of Service: December 16, 2023
Reports feeling tired. Reports some chest soreness
Objective
Labs:
12/16/23 03:48
12/16/23 03:48
Labs
Hgb 8.1 g/dL (13.0-18.0) L 12/16/23 03:48
Hct 24.5 % (39.0-52.0) L 12/16/23 03:48
Plt Count 92 10^3/uL (130-400) L 12/16/23 03:48
PT 22.1 Sec (11.4-14.6) H 12/15/23 15:50
INR 1.91 12/15/23 15:50
APTT 36.7 Sec (23.4-35.0) H 12/15/23 15:50
Sodium 140 mmol/L (135-145) 12/16/23 03:48
Potassium 4.2 mmol/L (3.5-5.1) 12/16/23 03:48
BUN 21 mg/dl (9-20) H 12/16/23 03:48
Creatinine 0.8 mg/dL (0.7-1.3) 12/16/23 03:48
Glucose 94 mg/dl (70-99) 12/16/23 03:48
Vital Signs and I&O:
Vital Signs
Temp Pulse Resp BP Pulse Ox
99.3 F 47 18 96/57 97
12/16/23 09:25 12/16/23 09:25 12/16/23 09:25 12/16/23 07:12 12/16/23 09:25
Vital Signs
Temp Pulse Resp BP Pulse Ox
99.3 F 47 18 96/57 97
12/16/23 09:25 12/16/23 09:25 12/16/23 09:25 12/16/23 07:12 12/16/23 09:25
Intake & Output
12/14/23 12/15/23 12/16/23 12/17/23
07:59 07:59 07:59 07:59
Intake Total 360 / 360 1768.6 / 1768.6 258.8 / 258.8
Output Total 1150 / 1150 1550 / 1550 140 / 140
Balance -790 / -790 218.6 / 218.6 118.8 / 118.8
Physical Exam
Physical Exam
GEN: No distress, awake, alert, oriented x3
HEENT: supple, anicteric, mmm, eomi
LUNGS: Decreased BS B/L, no wheezes
CV: Reg, S1/S2, 1/6 syst LSB
ABD: soft, BS+, NT/ND
EXT: No cyanosis, clubbing, edema
NEURO: Gross non-focal
SKIN: Warm, pink, dry. No rash. Sternotomy dressing c/d/i. CTs in place. temp wire in place
[2023-12-16] MEDS: NOVOLIN R INSULIN INFUSION 100 IV (10:01)
[2023-12-16 10:06] LABS: Glucose - Point of Care 151 mg/dl (70-99)
[2023-12-16] MEDS: ADRENALIN 250 IV (12:13)
[2023-12-16] MEDS: NSS 500 IV (12:13)
[2023-12-16] MEDS: BACTROBAN 2% OINTMENT 1 APPLIC NASAL ×2 (12:14→21:57)
--- NOTE | 2023-12-16 12:18 | PTCARENOTE ---
Levo weaned to 5 mcg/min. Pt turned side to side, tolerated well. Pts and sons at bedside, updated them on plan of care and encouraged questions.
--- NOTE | 2023-12-16 13:14 | W.PN.INTV ---
Today's Communication / Plan
Recommendations
Continue postoperative care
Follow chest tube output
Follow hemoglobin and transfuse
Physical therapy
Daily chest x-ray
Monitor for bradycardia
Critical care team will sign off
Assessment
-
Status post coronary artery bypass and AVR 12/15/[address] Lackey
Postoperative mechanical ventilation
Postoperative anemia
Conditions present prior admission:
Severe multivessel coronary artery disease
Ischemic cardiomyopathy ejection fraction 40%
Atrial fibrillation status post PVI x 2 on chronic anticoagulation
Hypertension
Hyperlipidemia
Echocardiogram 11/25/2023:Report reviewed, mild LVH. Mildly reduced ventricular ejection fraction 45-50%. Global hypokinesis. Mild to moderate MR. Mild to moderate aortic stenosis. Mild to moderate TR with pulmonary estimated systolic pressure
42 mmHg.
Assessment and plan:
Doing well postoperative day 1.
Encourage incentive spirometry
Increase activity as able.
Anemia noted-no evidence of acute bleeding
Follow H&H serially
Hemodynamics -Levophed weaned off.
Good urinary output.
Renal function stable.
First-degree AV block.
Cardiology following.
Chest tube with no excessive drainage-no air leak.
Chest x-ray reviewed: With no pneumothorax or fluid collections.
Advance diet as tolerated
Head of the bed elevation
Glycemic control per protocol
DVT prophylaxis when safe from the surgical perspective. Eventual to restart anticoagulation per
No additional recommendations. Critical care team will sign off.
Subjective Dataa
Subjective Data
Date of Service:
Date of Service: December 16, 2023
Chief Complaint: Emergency Room Physician Follow Up (Status post coronary artery bypass and AVR)
Subjective:
No particular complaints.
Stable hemodynamically overnight
Review of Systems
Cardiopulmonary: Dyspnea (none )
GI: Abdominal Pain (n), Nausea (n) and Vomiting (n)
Neuro: Headache (n)
Objective Data
Data Reviewed
Vital Signs / I&O / Oxygen:
Vital Signs
Temp Pulse Resp BP Pulse Ox
99.5 F 71 20 96/57 96
12/16/23 13:04 12/16/23 13:00 12/16/23 13:04 12/16/23 07:12 12/16/23 13:04
Intake and Output
12/15/23 12/16/23 12/17/23
06:59 06:59 06:59
Intake Total 1397.2 / 1702.9 827.8 / 827.8
Output Total 1485 / 1520 475 / 475
Balance -87.8 / 182.9 352.8 / 352.8
SaO2 [CPAP] 100
SaO2 [SIMV] 100
SaO2 96
Nasal Cannula flow liters per 2
minute
Physical Exam
General: Respiratory Distress (n)
HEENT: Normocephalic
Cardiovascular: S1-S2
Respiratory: Non-Labored Respirations and Chest Tube (No excessive drainage)
GI: Soft and Non Distended
Neurology: Awake, Alert, Oriented and No Motor Deficits
Labs/Micro/Reports
Lab Data
12/16/23 03:48
12/16/23 03:48
Laboratory Results
12/15/23 12/15/23 12/16/23
15:50 18:00 03:48
PT 22.1 H
INR 1.91
APTT 36.7 H
pH 7.31 L 7.40 7.39
pCO2 41 34 L 44
pO2 166 H 138 H 108
HCO3 20.6 L 21.1 26.6
O2 Delivery Level
--- NOTE | 2023-12-16 13:55 | PTCARENOTE ---
TPM rate increased to 60, VVI.
[2023-12-16] MEDS: LIPITOR 40 MG PO (16:13)
[2023-12-16] MEDS: LR 250 IV (16:38)
[2023-12-16] MEDS: ZOFRAN 4 MG IV (16:38)
[2023-12-16 17:10] LABS: Glucose - Point of Care 118 mg/dl (70-99)
[2023-12-16 17:10] LABS: Glucose - Point of Care 107 mg/dl (70-99)
[2023-12-16 17:10] LABS: Glucose - Point of Care 99 mg/dl (70-99)
--- NOTE | 2023-12-16 17:13 | PTCARENOTE ---
Levo weaned to 2mcg/min. 250 LR bolus given. Pt assisted OOB up in chair. Levo increased to 4 mcg/min and additional 250 LR bolus given as per ZACH Edwards. Epi remains at 1 mcg/min. Pt NSR with first degree HB and JR at times. Insulin drip d/c'd.
--- NOTE | 2023-12-16 18:05 | PTCARENOTE ---
Pt placed back to bed, levo decreased to 2mcg/min. Pt eating pudding and yogurt at this time.
--- NOTE | 2023-12-16 20:00 | PTCARENOTE ---
pt aaox4 w/o complaints of pain. ns/sb 1ts degree block on monitor, RA clear decreased ls, GI passing gas, obbby w/ adequite output, CTx4 with minimal drainage, all surgical sights cdi, all lines wnl, see worklist for detailed assessment
[2023-12-17] VITALS (10 sets, daily range): BP systolic 99–160; BP diastolic 53–120; PULSE 80; O2SAT 97; BMI 27.3
[2023-12-17 04:00] LABS: Hematocrit 22.1 % (39.0-52.0); Hemoglobin 7.5 g/dL (13.0-18.0); Mean Corp Hgb Conc. 33.9 g/dL (33.0-37.0); Mean Corpuscular Hgb 28.4 pg (27.0-31.0); Mean Corpuscular Volume 83.7 fL (80.0-94.0); Red Blood Cell Count 2.64 10^6/uL (4.70-6.10); Red Cell Dist. Width 14.4 % (11.5-14.5); White Blood Cell Count 19.5 10^3/uL (4.8-10.8)
--- NOTE | 2023-12-17 04:14 | W.PN.CT ---
Today's Communication / Plan
-
-pod #2
-no significant issues overnight
-monitor rhythm - sinus jeanette to low 40s with PACs
-has V-pw for backup
-CI 2.31, CO 4.62, SVR 935. Drips: Epi 0.5, Levo 1
-CT output: 2 meds 30/155, 2 pleur 70/240 in 12/24 hrs
-wean drips as tolerated
-current meds (ASA, Lipitor, Protonix). Eventually, to restart Eliquis for paf. Holding BB and Tikosyn d/t bradycardia
-appreciate Cardiology input
-encourage IS, OOB
Assessment / Plan
-
Assessment:
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 Lackey on 12/15/23, pod #2
-POST-DEANN: LVEF 50%, no AI/PVL, mean gradient 8mmHg, trace TR, trace MR, No flow in DOUGLAS, normal PV, Ao OK; CI 2.8
-Ischemic cardiomyopathy, EF 35% preop - improved to 50% by intraop DEANN
-A-fib S/P PVI x2 ( 09/25/15 and 08/18/19)- on Eliquis/Tikosyn at home
-S/p Linq monitor implant 2016
-HTN
-Hyperlipidemia
-Prostatectomy for prostate CA
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
-Acute postop blood loss anemia
-Acute on chronic thrombocytopenia
-Acute postop atelectasis
-Acute postop metabolic acidosis- resolved
-Acute postop hypokalemia/ hypocalcemia-resolved
-Acute postop transient Mobitz 1, ? brief junctional rhythms high 40s
-Acute postop hypovolemia with subsequent hypervolemia
Discussed patient care with: Nursing and Care Team
Subjective
Procedure
- s/p AVR (#25 Darriusiris Rhiannon); CABG x 4 (KATI to LAD, GSV to OM, sGSV to R PDA, L PLB); ELAA w/ 45mm AtriClip by Dr. Lackey on 12/15/23
-
Date of Service: December 17, 2023
Objective Data
-
PT 22.1 Sec (11.4-14.6) H 12/15/23 15:50
INR 1.91 12/15/23 15:50
APTT 36.7 Sec (23.4-35.0) H 12/15/23 15:50
Vital Signs
Vital Signs
Temp Pulse Resp BP Pulse Ox
99.7 F 55 16 86/53 99
12/16/23 21:07 12/17/23 00:00 12/16/23 21:07 12/16/23 17:07 12/17/23 00:00
CT Intake/Output/Weight
12/16/23 12/16/23 12/17/23
06:59 18:59 06:59
Intake Total 802.2 / 1702.9 1479.9 / 1479.9
Output Total 935 / 1520 785 / 1345 560 / 1345
Balance -132.8 / 182.9 694.9 / 134.9 -560 / 134.9
SaO2: 99
Physical Exam
-
General: Awake and AOx3
Cardiovascular: Regular rate & rhythm, No Murmurs and Rub
Respiratory: Decreased Breath Sounds
Sternum: Stable
Incision: Clean, Dry and Intact
Extremities: No Edema (DPs by Doppler)
Abdomen: soft, nontender, nondistended, + bowel sounds
Data Reviewed
-
Lab Results: Results Reviewed
Medications: Active Meds Reviewed
Chest X-Ray: Report Reviewed and Image Reviewed
ECG: Report Reviewed and Image Reviewed
[2023-12-17 04:22] LABS: Blood Urea Nitrogen 41 mg/dl (9-20); Calcium 8.8 mg/dl (8.4-10.2); Carbon Dioxide 22 mmol/L (22-30); Chloride 105 mmol/L (98-107); Estimated Creatinine Clearance 43 ml/min; Glucose 172 mg/dl (70-99); Magnesium 2.9 mg/dl (1.6-2.3); Potassium 5.6 mmol/L (3.5-5.1); Sodium 134 mmol/L (135-145); eGFR 50.49
[2023-12-17 05:09] LABS: Mean Platelet Volume 12.9 fL (7.4-10.4); Platelet Count 71 10^3/uL (130-400)
[2023-12-17] MEDS: TYLENOL 1000 MG PO (06:21)
[2023-12-17 07:54] LABS: % Basophils 0.1 % (0-2); % Immature Granulocytes 0.8 % (0-0.5); % Lymphocytes 4.1 % (20.5-51.1); % Monocytes 6.5 % (1.7-9.3); % Neutrophils 88.5 % (42.2-75.2); Absolute Immature Granulocytes 0.2 10^3/uL (0-0.05); Absolute Lymphocytes 0.9 10^3/uL (1.2-3.4); Absolute Monocytes 1.4 10^3/uL (0.1-0.6); Absolute Neutrophils 18.5 10^3/uL (1.4-6.5); Hematocrit 23.2 % (39.0-52.0); Hemoglobin 7.7 g/dL (13.0-18.0); Mean Corp Hgb Conc. 33.2 g/dL (33.0-37.0); Mean Corpuscular Hgb 28.2 pg (27.0-31.0); Mean Platelet Volume 13.5 fL (7.4-10.4); Nucleated Red Blood Cells % 0 % (-); Platelet Count 77 10^3/uL (130-400); Red Blood Cell Count 2.73 10^6/uL (4.70-6.10); Red Cell Dist. Width 14.6 % (11.5-14.5); White Blood Cell Count 20.9 10^3/uL (4.8-10.8)
[2023-12-17 07:56] LABS: ALT (SGPT) 644 U/L (0-50); AST (SGOT) 726 U/L (17-59); Albumin 3.4 g/dl (3.5-5.0); Alkaline Phosphatase 51 U/L (38-126); Blood Urea Nitrogen 42 mg/dl (9-20); Calcium 8.7 mg/dl (8.4-10.2); Carbon Dioxide 22 mmol/L (22-30); Chloride 105 mmol/L (98-107); Estimated Creatinine Clearance 40 ml/min; Glucose 174 mg/dl (70-99); Magnesium 2.8 mg/dl (1.6-2.3); Potassium 5.8 mmol/L (3.5-5.1); Sodium 131 mmol/L (135-145); Total Protein 5.3 g/dl (6.3-8.2); eGFR 46.48
--- NOTE | 2023-12-17 08:38 | PTCARENOTE ---
Patient received from shift supervisor melting resting comfortably in bed, sleepy but arousable and appropriate. SB via cm, EKG obtained. RIJ Cordis/[place] catheter, L radial arterial lines present - leveled, flushed, and calibrated w/good waveforms returned.
Epicardial V-wire to pulse generator, rate increased to 80bpm. Levophed infusing, weaned to off with higher rate. Epinephrine infusing, see work list for infusion rates and titrations. Mediastinal chest tubes x 2, L and R pleura chest tubes, to
-20cm suction w/no air leaks noted. Acuna catheter to gravity. All procedural sites stable. Patient updated to plan of care for the day, in agreement. See work list for full assessment and interventions performed.
[2023-12-17] MEDS: PROTONIX 40 MG PO (09:51)
[2023-12-17] MEDS: NEURONTIN 100 MG PO ×3 (09:51→22:37)
[2023-12-17] MEDS: SENOKOT-S 1 TABLET PO ×2 (09:51→20:50)
[2023-12-17] MEDS: LOW STRENGTH ASPIRIN 81 MG PO (09:51)
[2023-12-17] MEDS: BACTROBAN 2% OINTMENT 1 APPLIC NASAL ×2 (09:51→20:50)
[2023-12-17] MEDS: NSS 500 IV (09:51)
[2023-12-17] MEDS: MAGNESIUM OXIDE PO (10:01)
--- NOTE | 2023-12-17 10:47 | CM ---
dc plans remain home with a f/u visit form the CT Transitional care nurse after dc.
[2023-12-17] MEDS: PLAVIX 75 MG PO (10:54)
--- NOTE | 2023-12-17 11:12 | W.PN.CARDCBS ---
Addendum entered and electronically signed by Bradly Castillo MD 12/17/23 12:17:
I saw and examined the patient.
The Lumber Sorter's note was reviewed and I agree with the note.
Comment:
GEN: No distress, awake, Ox3
HEENT: supple, anicteric, mmm
LUNGS: CTA, no wheezes/rales
CV: Reg, S1/S2, 1/6 syst LSB, no gallop
ABD: soft, BS+, NT/ND
EXT: No edema
NEURO: Gross non-focal
SKIN: sternotomy
Plan:
He overall feels well. Underlying rhythm remains sinus bradycardia with heart rates in the 40s with right bundle branch block. Continue to hold Tikosyn and metoprolol.
Would hold off on permanent pacing for another 24 to 48 hours unless he becomes clinically unstable.
Agree with pacing at 80 bpm to improve cardiac output.
Follow platelets with continued thrombocytopenia and anemia. Hemoglobin at 7.7. May need transfusion.
Weaning pressors.
Eventually restart Eliquis.
Original Note:
Today's Communication / Plan
-
follow rhythm
transfuse
follow LFTs/Cr/Na/K
wean off pressors
looks well
eventual back on OAC
Impression / Plan
-
PCP: Dr. Alberto
Cardiology: Dr. Castillo
EP: Dr. Davis
Impression:
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
90% distal LM, 80% LAD, 90% ostial circ, 95% mid RCA
s/p CABG x 4 - KATI to LAD, GSV to OM, sGSV to R PDA, L PLB, DOUGLAS clip, AVR 12/15/23
Paroxysmal Afib
s/p PVI 09/25/15
s/p PVI 08/18/19
Chronic Tikosyn therapy
s/p LINQ implant in 2015 and replaced in 02/23/20
Chronic Eliquis OAC
HTN
Hyperlipidemia
Echo 06/08/19: EF 60-65%, mild MR, mild TR
Echo 11/25/2023: EF 45-50%, mild cLVH, global hypokinesis, mild-moderate MR, mild-moderate with peak/mean gradients 37/20 mmHg, trace AI, mild-moderate TR, estimated PAP 42 mmHg
Plan:
-Presented for [facility] and found to have severe MV CAD as noted above. CT surgery consulted for evaluation of CABG.
-Status post CABG x 4 - KATI to LAD, GSV to OM, sGSV to R PDA, L PLB, DOUGLAS clip, AVR 12/15/23
-on epi @0.75. wean off as able
-underlying rhythm noted to be sinus bradycardia. will continue to hold OP tikosyn and BB for now. rate currently set to 80. may require PPM placement on Wednesday if no improvement in underlying HR
-hgb 7.7 and plts 77K. for transfusion today. on asa, plavix. he had been on eliquis prior to admission. resume OAC when ok per surgery team
-LFTs bumped today quite significantly (AST 726, ALT 644), ? bradycardia related. holding statin. Cr also up slightly from yesterday to 1.5, in addition to worsening hyponatremia and hyperkalemia. correction ongoing
-all this considered, patient looks very well
-follow volume status, was receiving 40mg po lasix daily prior to surgery but does not appear to have been on as OP
-was on norvasc and losartan preop, will reassess resuming in post op setting closer to DC
-continue post op care. encouraged OOB/IS
-d/w nursing, CT surgery
Progress Note - Extrusion Die Repair Manager
Subjective
Date of Service: December 17, 2023
feeling well. no pain
Objective
Labs:
12/17/23 07:23
12/17/23 07:23
Labs
Hgb 7.7 g/dL (13.0-18.0) L 12/17/23 07:23
Hct 23.2 % (39.0-52.0) L 12/17/23 07:23
Plt Count 77 10^3/uL (130-400) L 12/17/23 07:23
PT 22.1 Sec (11.4-14.6) H 12/15/23 15:50
INR 1.91 12/15/23 15:50
APTT 36.7 Sec (23.4-35.0) H 12/15/23 15:50
Sodium 131 mmol/L (135-145) L 12/17/23 07:23
Potassium 5.8 mmol/L (3.5-5.1) H 12/17/23 07:23
BUN 42 mg/dl (9-20) H 12/17/23 07:23
Creatinine 1.5 mg/dL (0.7-1.3) H 12/17/23 07:23
Glucose 174 mg/dl (70-99) H 12/17/23 07:23
Vital Signs and I&O:
Vital Signs
Temp Pulse Resp BP Pulse Ox
99.1 F 80 15 86/53 96
12/17/23 10:00 12/17/23 10:00 12/17/23 10:00 12/16/23 17:07 12/17/23 09:00
Vital Signs
Temp Pulse Resp BP Pulse Ox
99.1 F 80 15 86/53 96
12/17/23 10:00 12/17/23 10:00 12/17/23 10:00 12/16/23 17:07 12/17/23 09:00
Intake & Output
12/15/23 12/16/23 12/17/23 12/18/23
07:59 07:59 07:59 07:59
Intake Total 1768.6 / 1768.6 1135.1 / 1161.7 72.2 / 72.2
Output Total 1550 / 1550 1355 / 1375 90 / 90
Balance 218.6 / 218.6 -219.9 / -213.3 -17.8 / -17.8
Physical Exam
Physical Exam
GEN: No distress, awake, alert, oriented x3. sitting in chair
HEENT: supple, anicteric, mmm, eomi
LUNGS: Decreased BS B/L, no wheezes
CV: Reg, S1/S2, 1/6 syst LSB
ABD: soft, BS+, NT/ND
EXT: No cyanosis, clubbing. trace edema of RLE
NEURO: Gross non-focal
SKIN: Warm, pink, dry. No rash. Sternotomy dressing c/d/i. temp wire in place
--- NOTE | 2023-12-17 12:12 | PTCARENOTE ---
Patient had lunch, assisted back to bed for follow up echo. VS stable. Patient denies pain.
--- NOTE | 2023-12-17 12:25 | CARDSERVLU ---
Echocardiogram with Lumason completed after protocol screening completed. Allergies verified.
Patent IV site: ___Rt wrist__
IV site flushed with 0.9% NaCl pre and post administration.
Diluted bolus method utilized to enhance visualization of ventricular morales.
Total volume given: _4.0__ mL
Patient tolerated all procedures well without complications.
--- NOTE | 2023-12-17 16:00 | PTCARENOTE ---
VS obtained, assessment stable. Family at bedside for visit. Dr. Lackey to room, updated to status.
--- NOTE | 2023-12-17 21:00 | PTCARENOTE ---
Patient received sleeping. Patient A+A+Ox3 during periods of care. No neurological deficits noted. No c/o headache, dizziness or lightheadedness. No s/s of respiratory distress. No c/o SOB. Room air. SaO2 96%. No adventitious breath sounds
noted. Chest tube dressing intact. 100% V-Paced. VVI Rate 80, Output 10, Sensitivity 2.0. Occasional PVC. Patient with no c/o chest pain, pressure or discomfort. Normoactive bowel sounds. No BM. No c/o nausea. No vomiting. Voiding without
difficulty. Patient with no c/o back or flank pain. Right I.J. Cordis intact and patent - Saline flush 10 ml/hr. Sternal Aquacell dressing intact. Right groin intact. Right knee Aquacell dressing intact. Patient resting in bed watching
television. Assessment as documented.
[2023-12-18] VITALS (27 sets, daily range): BP systolic 92–148; BP diastolic 66–111; PULSE 80; O2SAT 99; BMI 27.5
--- NOTE | 2023-12-18 00:30 | PTCARENOTE ---
Patient sleeping without difficulty. No further changes from previous assessment.
[2023-12-18 04:59] LABS: Hematocrit 22.1 % (39.0-52.0); Hemoglobin 7.3 g/dL (13.0-18.0); Mean Corpuscular Hgb 28.3 pg (27.0-31.0); Mean Corpuscular Volume 85.7 fL (80.0-94.0); Mean Platelet Volume 13.2 fL (7.4-10.4); Platelet Count 67 10^3/uL (130-400); Red Blood Cell Count 2.58 10^6/uL (4.70-6.10); Red Cell Dist. Width 14.4 % (11.5-14.5); White Blood Cell Count 15.8 10^3/uL (4.8-10.8)
[2023-12-18 05:45] LABS: ALT (SGPT) 451 U/L (0-50); AST (SGOT) 263 U/L (17-59); Alkaline Phosphatase 61 U/L (38-126); Blood Urea Nitrogen 42 mg/dl (9-20); Calcium 8.5 mg/dl (8.4-10.2); Carbon Dioxide 26 mmol/L (22-30); Chloride 104 mmol/L (98-107); Direct Bilirubin 0.3 mg/dl (0.0-0.4); Estimated Creatinine Clearance 60 ml/min; Glucose 119 mg/dl (70-99); Magnesium 2.5 mg/dl (1.6-2.3); Potassium 4.8 mmol/L (3.5-5.1); Sodium 132 mmol/L (135-145); Total Bilirubin 1.4 mg/dl (0.2-1.3); Total Protein 5.1 g/dl (6.3-8.2); eGFR > 60.00
--- NOTE | 2023-12-18 06:00 | PTCARENOTE ---
Patient A+A+Ox3. No neurological deficits noted. No c/o pain or discomfort. AM lab work collected and sent. EKG completed - PA at bedside - Paused Pacemaker - HR 40's. No c/o chest pain, pressure or discomfort. V-Pacing resumed - HR 80.
Patient given CHG bath and linens changed. Chest tube dressing changed. OOB to chair. Standing scale weight 87.0 kg. Assessment/Interventions as documented.
--- NOTE | 2023-12-18 06:48 | W.PN.CT ---
Today's Communication / Plan
-
-pod #3
-looks and feels well, no complaints, denies incisional pain
-v-paced @80 (intrinsic rhythm appears nsr with CHB and junctional escape mid 50s)
-holding BB and Tikosyn d/t bradycardia
-h/h 7.3/22.1 today (7.7/23.2 on 12/16)
-Cr improved -1.0 today (1.5 on 12/16) - follow
-elevated K, Mg- improving
-elevated LFTs- holding Lipitor and Tylenol- improving
-current meds (ASA, Plavix, Protonix, Neurontin)
-encourage IS, OOB
Assessment / Plan
-
Assessment:
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 Lackey on 12/15/23, pod #3
-POST-DEANN: LVEF 50%, no AI/PVL, mean gradient 8mmHg, trace TR, trace MR, No flow in DOUGLAS, normal PV, Ao OK; CI 2.8
-Ischemic cardiomyopathy, EF 35% preop - improved to 50% by intraop DEANN
-A-fib S/P PVI x2 ( 09/25/15 and 08/18/19)- on Eliquis/Tikosyn at home
-S/p Linq monitor implant 2015
-HTN
-Hyperlipidemia
-Prostatectomy for prostate CA
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
-Acute postop blood loss anemia
-Acute on chronic thrombocytopenia
-Acute postop atelectasis
-Acute postop metabolic acidosis- resolved
-Acute postop hypokalemia/ hypocalcemia-resolved
-Acute postop transient Mobitz 1, ? brief junctional rhythms high 40s, sinus bradycardia low 40s
-Acute postop hypovolemia with subsequent hypervolemia
-RENETTA
-Acute postop hyperkalemia/hypermagnesemia- dcd Mg
-Acute postop elevated LFTs-holding Lipitor, Tylenol
Discussed patient care with: Nursing and Care Team
Subjective
Procedure
- s/p AVR (#25 Inspiris Resilia); CABG x 4 (KATI to LAD, GSV to OM, sGSV to R PDA, L PLB); ELAA w/ 45mm AtriClip by Dr. Lackey on 12/15/23
-
Date of Service: December 18, 2023
Objective Data
-
PT 22.1 Sec (11.4-14.6) H 12/15/23 15:50
INR 1.91 12/15/23 15:50
APTT 36.7 Sec (23.4-35.0) H 12/15/23 15:50
Vital Signs
Vital Signs
Temp Pulse Resp BP Pulse Ox
98.7 F 80 16 121/85 98
12/17/23 22:35 12/18/23 01:00 12/17/23 22:35 12/17/23 22:35 12/17/23 22:35
CT Intake/Output/Weight
12/17/23 12/17/23 12/18/23
06:59 18:59 06:59
Intake Total 684.4 / 1234.4 550 / 1234.4
Output Total 600 / 1420 490 / 890 400 / 890
Balance -600 / 86.5 194.4 / 344.4 150 / 344.4
SaO2: 98
Physical Exam
-
General: Awake and AOx3
Cardiovascular: Regular rate & rhythm, No Murmurs and No Rub
Respiratory: Decreased Breath Sounds
Sternum: Stable
Incision: Clean, Dry and Intact
Extremities: Other (1+ edema RLE and no edema LLE)
Abdomen: soft, nondistended, nontender, + bowel sounds
Data Reviewed
-
Lab Results: Results Reviewed
Medications: Active Meds Reviewed
Chest X-Ray: Report Reviewed and Image Reviewed
ECG: Report Reviewed and Image Reviewed
--- NOTE | 2023-12-18 08:00 | PTCARENOTE ---
Received patient from prior shift. Pt assessment completed, see documentation in medical record. Pt education initiated about ISB use, cough and deep breathing with the heart pillow, mobility, nutrition, pain management, sternal precautions and rest
periods. Pt asked to demonstrate ISB, and patienteducation completed to correct technique. Pt demonstrated understanding of education using the teach back method. Proper technique with the incentive spirometer will be reinforced, and patient
instructed to use the ISB ten times per hour (minimum). Medication education including medication side effects provided for all 0800 medications prior to administering AM medications. Pt sitting in the chair and resting comfortably. Medication
education will be reinforced throughout the day. IV site flushed and patent.
[2023-12-18] MEDS: PROTONIX 40 MG PO (08:52)
[2023-12-18] MEDS: NEURONTIN 100 MG PO ×3 (08:52→22:15)
[2023-12-18] MEDS: LOW STRENGTH ASPIRIN 81 MG PO (08:52)
[2023-12-18] MEDS: SENOKOT-S 1 TABLET PO (08:52)
[2023-12-18] MEDS: PLAVIX 75 MG PO (08:52)
[2023-12-18] MEDS: BACTROBAN 2% OINTMENT 1 APPLIC NASAL ×2 (08:53→20:21)
[2023-12-18] MEDS: DULCOLAX 10 MG RECTAL (08:53)
--- NOTE | 2023-12-18 08:56 | PTCARENOTE ---
Discussed dual antiplatelet therapy with CT surgery SLIVER MACHINE OPERATOR in the setting of low platelet count. The surgical team wants DAPT given, will monitor platelet levels and hgb (after transfusion). Discussed the risks and benefits of transfusion with Mr Hernandez
including side effects of transfusion. Mr Hernandez demonstrated and understanding of the education with the teach back method.
--- NOTE | 2023-12-18 09:00 | PTCARENOTE ---
Pt education reinforced regarding pain management. Pt instructed about the pain management goal to achieve a pain scale of 3 out of 10 pain or less. Pt education provided about pain medications and nonpharmaceutical pain management including
repositioning, rest, distraction, massage, imagery, hot or cold therapy, and exercise. Pt demonstrated an understanding of education using the teach back method. He reports that he has no pain at all, only a 'little bit of pressure at the incision
site.
--- NOTE | 2023-12-18 10:15 | PTCARENOTE ---
Patient education completed regarding DVT prevention in the post operative period and the risk for PE and/or stroke. Pt instructed about anticoagulation treatment, frequent movement, frequent ankle pumps, and the need to increase activity during
recovery and after discharge. Fall risk prevention reinforced, and pt instructed not to get up from the chair or bed without the assistance of the nurse. Pt demonstrated an understanding of education using the teach back method. Call romero in reach
of patient at all times.
--- NOTE | 2023-12-18 11:47 | W.PN.CARDCBS ---
Addendum entered and electronically signed by Santiago Hernandez MD 12/18/23 14:52:
Patient seen, interviewed and examined by me.
Well-appearing, no acute distress
Regular rate and rhythm with normal S1 and S2, no S3 no S4. There is a grade 1/6 apical holosystolic murmur and no rubs. PMI is normally placed.
Lungs are clear to auscultation bilaterally without wheezes rales or rhonchi.
Abdomen soft nontender nondistended with normoactive bowel sounds
Extremities show trace pretibial edema bilaterally no clubbing or cyanosis.
Neurologic exam is grossly nonfocal.
Agree with advanced practice professionals assessment and plan as noted below.
He underwent coronary bypass grafting x 4, AVR and left atrial appendage clipping on December 15, 2023
He has a history of atrial fibrillation and underwent PVI in the past, he has been maintained on dofetilide for rhythm control.
Underlying sinus rhythm with 2-1 AV block, still requiring pacing via his temporary wires. He is at bedside with his family which includes his son and his . I discussed with the patient and his family that we may recommend placement of
permanent pacemaker if he continues to demonstrate AV block. If this were the case we would plan for permanent pacemaker on Wednesday.
Original Note:
Today's Communication / Plan
-
follow rhythm
for transfusion today
continue post op care
LFTs/Cr improving
eventual resume OAC when ok per surgery
Impression / Plan
-
PCP: Dr. Alberto
Cardiology: Dr. Castillo
EP: Dr. Davis
Impression:
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
90% distal LM, 80% LAD, 90% ostial circ, 95% mid RCA
s/p CABG x 4 - KATI to LAD, GSV to OM, sGSV to R PDA, L PLB, DOUGLAS clip, AVR 12/15/23
Paroxysmal Afib
s/p PVI 09/25/15
s/p PVI 08/18/19
Chronic Tikosyn therapy
s/p LINQ implant in 2015 and replaced in 02/23/20
Chronic Eliquis OAC
HTN
Hyperlipidemia
Echo 06/08/19: EF 60-65%, mild MR, mild TR
Echo 11/25/2023: EF 45-50%, mild cLVH, global hypokinesis, mild-moderate MR, mild-moderate with peak/mean gradients 37/20 mmHg, trace AI, mild-moderate TR, estimated PAP 42 mmHg
Plan:
-Presented for [facility] and found to have severe MV CAD as noted above. CT surgery consulted for evaluation of CABG.
-Status post CABG x 4 - KATI to LAD, GSV to OM, sGSV to R PDA, L PLB, DOUGLAS clip, AVR 12/15/23
-underlying rhythm appears to be 2:1 av block. OP BB and tikosyn remain on hold. pacer rate currently set to 80. may require PPM placement on Wednesday if no improvement in underlying HR
-hgb down to 7.3. for transfusion today
-on asa, plavix. he had been on eliquis prior to admission. resume OAC when ok per surgery team
-Cr/LFTs improving
-follow volume status, was receiving 40mg po lasix daily prior to surgery but does not appear to have been on as OP
-was on norvasc and losartan preop, will reassess resuming in post op setting closer to DC
-continue post op care. encouraged OOB/IS
-d/w nursing, CT surgery
Progress Note - Supervisor Parking Lot
Subjective
Date of Service: December 18, 2023
no issues overnight noted
Objective
Labs:
12/18/23 04:41
12/18/23 04:41
Labs
Hgb 7.3 g/dL (13.0-18.0) L 12/18/23 04:41
Hct 22.1 % (39.0-52.0) L 12/18/23 04:41
Plt Count 67 10^3/uL (130-400) L 12/18/23 04:41
PT 22.1 Sec (11.4-14.6) H 12/15/23 15:50
INR 1.91 12/15/23 15:50
APTT 36.7 Sec (23.4-35.0) H 12/15/23 15:50
Sodium 132 mmol/L (135-145) L 12/18/23 04:41
Potassium 4.8 mmol/L (3.5-5.1) 12/18/23 04:41
BUN 42 mg/dl (9-20) H 12/18/23 04:41
Creatinine 1.0 mg/dL (0.7-1.3) 12/18/23 04:41
Glucose 119 mg/dl (70-99) H 12/18/23 04:41
Vital Signs and I&O:
Vital Signs
Temp Pulse Resp BP Pulse Ox
97.5 F 80 19 102/74 99
12/18/23 08:59 12/18/23 08:57 12/18/23 08:59 12/18/23 08:57 12/18/23 09:53
Vital Signs
Temp Pulse Resp BP Pulse Ox
97.5 F 80 19 102/74 99
12/18/23 08:59 12/18/23 08:57 12/18/23 08:59 12/18/23 08:57 12/18/23 09:53
Intake & Output
12/16/23 12/17/23 12/18/23 12/19/23
07:59 07:59 07:59 07:59
Intake Total 1768.6 / 1768.6 1135.1 / 1161.7 1257.8 / 1257.8 240 / 240
Output Total 1550 / 1550 1355 / 1375 1355 / 1355
Balance 218.6 / 218.6 -219.9 / -213.3 -97.2 / -97.2 240 / 240
Physical Exam
Physical Exam
GEN: No distress, awake, alert, oriented x3. sitting in chair
HEENT: supple, anicteric, mmm, eomi
LUNGS: Decreased BS B/L, no wheezes
CV: Reg, S1/S2, 1/6 syst LSB
ABD: soft, BS+, NT/ND
EXT: No cyanosis, clubbing. trace edema of RLE
NEURO: Gross non-focal
SKIN: Warm, pink, dry. No rash. Sternotomy dressing c/d/i. temp wire in place
--- NOTE | 2023-12-18 12:30 | PTCARENOTE ---
Prior patient assessment remains unchanged. Pt resting comfortably in the chair. Heart sounds S1S2 very soft murmor and lungs clear and few crackles left base. Pain remains controlled at a 1 out of 10. Pt using ISB every hour, and ISB technique has
improved. Demonstrates proper sternal precautions and heart pillow use.
--- NOTE | 2023-12-18 13:46 | PTCARENOTE ---
Pt ambulating in the hallway with his , states he will take the shower when he comes back from the walk.
--- NOTE | 2023-12-18 14:23 | PTCARENOTE ---
Vital signs stable during transfusion. Pt had a bowel movement earlier, complaining of gas and flatulence (given suppository earlier). Denies any chest pain or shortness of breath.
[2023-12-18 16:21] LABS: Hematocrit 27.4 % (39.0-52.0); Mean Corp Hgb Conc. 33.9 g/dL (33.0-37.0); Mean Corpuscular Hgb 28.6 pg (27.0-31.0); Mean Corpuscular Volume 84.3 fL (80.0-94.0); Platelet Count 95 10^3/uL (130-400); Red Blood Cell Count 3.25 10^6/uL (4.70-6.10); Red Cell Dist. Width 14.3 % (11.5-14.5); White Blood Cell Count 17.7 10^3/uL (4.8-10.8)
[2023-12-18 16:22] LABS: Hemoglobin 9.3 g/dL (13.0-18.0)
--- NOTE | 2023-12-18 16:51 | PTCARENOTE ---
Pt ambulated for 100feet, he complained of VIDES and we returned to his room. Pt can ambulate independently without assist (RN carried pacemaker). Pt states he feels better after the transfusion and CBC improved (both HGB and plat count).
--- NOTE | 2023-12-18 17:00 | PTCARENOTE ---
Prior assessment unchanged, pt with family at bedside, frequent trips to bathroom for flatus and voiding. Pt education completed about the modifiable and non-modifiable risk factors for CAD. Education included emphasis on modifiable risk factors
like high BP; high blood cholesterol levels; diet,
lack of physical activity; and stress. Specific risk factors that apply to the patient were discussed like blood pressure management and healthy diet.
[2023-12-18] MEDS: NSS 500 IV (17:03)
--- NOTE | 2023-12-18 20:00 | PTCARENOTE ---
Patient received OOB in chair watching television. Patient A+A+Ox3. No neurological deficits noted. No c/o headache, dizziness or lightheadedness. Patient ambulating to bathroom with minimal assistance. Able to reposition in chair by self
without difficulty - Chair cushion. No c/o pain or discomfort. No s/s of respiratory distress. Mild VIDES. Room air. SaO2 98%. Chest tube dressing intact. 100% V-Paced Rhythm. VVI Rate 20, Output 10, Sensitivity 2.0. Patient with no c/o chest
pain, pressure or discomfort. Normoactive bowel sounds. Voiding without difficulty. Sternal Aquacell dressing intact. Right groin ecchymotic with healing areas of blistering. Right knee region - Incision open to air. Positive, palpable pulses.
Foam dressing to sacrum. Skin protectant ointment to buttocks. Right I.J. Cordis intact and patent - Saline flush 10 ml/hr. Assessment as documented.
[2023-12-18] MEDS: SENOKOT-S PO (20:21)
[2023-12-19] VITALS (9 sets, daily range): BP systolic 94–105; BP diastolic 66–80; BMI 27.1
--- NOTE | 2023-12-19 | PTCARENOTE ---
Patient sleeping without difficulty. No further changes from previous assessment.
[2023-12-19] MEDS: NSS 500 IV (04:00)
[2023-12-19 04:16] LABS: Hematocrit 24.2 % (39.0-52.0); Hemoglobin 8.1 g/dL (13.0-18.0); Mean Corp Hgb Conc. 33.5 g/dL (33.0-37.0); Mean Corpuscular Hgb 28.4 pg (27.0-31.0); Mean Corpuscular Volume 84.9 fL (80.0-94.0); Mean Platelet Volume 12.5 fL (7.4-10.4); Platelet Count 88 10^3/uL (130-400); Red Blood Cell Count 2.85 10^6/uL (4.70-6.10); Red Cell Dist. Width 14.3 % (11.5-14.5); White Blood Cell Count 12.6 10^3/uL (4.8-10.8)
[2023-12-19 05:08] LABS: ALT (SGPT) 420 U/L (0-50); AST (SGOT) 179 U/L (17-59); Alkaline Phosphatase 77 U/L (38-126); Blood Urea Nitrogen 33 mg/dl (9-20); Calcium 8.3 mg/dl (8.4-10.2); Carbon Dioxide 27 mmol/L (22-30); Chloride 104 mmol/L (98-107); Direct Bilirubin 0.2 mg/dl (0.0-0.4); Estimated Creatinine Clearance 66 ml/min; Glucose 108 mg/dl (70-99); Magnesium 2.3 mg/dl (1.6-2.3); Potassium 4.7 mmol/L (3.5-5.1); Sodium 131 mmol/L (135-145); Total Bilirubin 1.9 mg/dl (0.2-1.3); Total Protein 5.2 g/dl (6.3-8.2); eGFR > 60.00
--- NOTE | 2023-12-19 05:30 | PTCARENOTE ---
Patient A+A+Ox3. No neurological deficits noted. No c/o pain or discomfort. AM lab work collected and sent. Portable CXR completed. New peripheral IV site #22P placed - Right arm. Pacemaker paused - EKG completed. No c/o chest pain, pressure
or discomfort. Patient given CHG bath and linens changed. Skin protectant ointment to buttocks and intergluteal cleft region. OOB to chair. Standing scale weight 88 kg. Assessment/Interventions as documented.
--- NOTE | 2023-12-19 05:30 | W.PN.CT ---
Today's Communication / Plan
-
-pod #4
-no overnight issues
-v-paced @80 (intrinsic rhythm appears nsr with CHB and junctional escape mid 40s). EKG obtained this AM
-holding BB and Tikosyn d/t bradycardia
-h/h 8.1/24.2 today (7.3/22.1 on 12/17)
-Cr improved 0.9 today (1.0 on 12/16) - follow
-platelets low, overall increasing from josé miguel
-elevated K, Mg- improving
-elevated LFTs- holding Lipitor and Tylenol- improving
-current meds (ASA, Plavix, Protonix, Neurontin)
-encourage IS, OOB
Assessment / Plan
-
Assessment:
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 Lackey on 12/15/23, pod #4
-POST-DEANN: LVEF 50%, no AI/PVL, mean gradient 8mmHg, trace TR, trace MR, No flow in DOUGLAS, normal PV, Ao OK; CI 2.8
-Ischemic cardiomyopathy, EF 35% preop - improved to 50% by intraop EDANN
-A-fib S/P PVI x2 ( 09/25/15 and 08/18/19)- on Eliquis/Tikosyn at home
-S/p Linq monitor implant 2015
-HTN
-Hyperlipidemia
-Prostatectomy for prostate CA
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
-Acute postop blood loss anemia
-Acute on chronic thrombocytopenia
-Acute postop atelectasis
-Acute postop metabolic acidosis- resolved
-Acute postop hypokalemia/ hypocalcemia-resolved
-Acute postop transient Mobitz 1, ? brief junctional rhythms high 40s, sinus bradycardia low 40s
-Acute postop hypovolemia with subsequent hypervolemia
-RENETTA
-Acute postop hyperkalemia/hypermagnesemia- dcd Mg
-Acute postop elevated LFTs-holding Lipitor, Tylenol
Subjective
Procedure
- s/p AVR (#25 Inspiris Resilia); CABG x 4 (KATI to LAD, GSV to OM, sGSV to R PDA, L PLB); ELAA w/ 45mm AtriClip by Dr. Lackey on 12/15/23
-
Date of Service: December 19, 2023
received 1 unit PRBC yesterday. LFTs trending down. HR remain VVI paced, with underlying rate in the 40s this AM
Objective Data
-
Lab Results
12/19/23 03:48
12/19/23 03:48
PT 22.1 Sec (11.4-14.6) H 12/15/23 15:50
INR 1.91 12/15/23 15:50
APTT 36.7 Sec (23.4-35.0) H 12/15/23 15:50
Vital Signs
Vital Signs
Temp Pulse Resp BP Pulse Ox
98.3 F 80 16 102/68 96
12/19/23 04:45 12/19/23 04:45 12/19/23 04:45 12/19/23 04:45 12/19/23 04:45
CT Intake/Output/Weight
12/18/23 12/18/23 12/19/23
06:59 18:59 06:59
Intake Total 600 / 1284.4 860 / 1190 330 / 1190
Output Total 900 / 1390 300 / 550 250 / 550
Balance -300 / -105.6 560 / 640 80 / 640
SaO2: 96
Physical Exam
-
General: Awake and Oriented
Cardiovascular: Regular rate & rhythm, No Murmurs and No Rub
Respiratory: Clear and Equal
Sternum: Stable
Incision: Clean, Dry and Intact
Extremities: Edema +1
Data Reviewed
-
Lab Results: Results Reviewed
Medications: Active Meds Reviewed
Chest X-Ray: Report Reviewed
ECG: Report Reviewed
[2023-12-19] MEDS: PROTONIX 40 MG PO (08:41)
[2023-12-19] MEDS: FEOSOL 325 MG PO (08:41)
[2023-12-19] MEDS: PLAVIX 75 MG PO (08:41)
[2023-12-19] MEDS: VITAMIN C 500 MG PO (08:41)
[2023-12-19] MEDS: NEURONTIN 100 MG PO ×3 (08:41→22:26)
[2023-12-19] MEDS: SENOKOT-S 1 TABLET PO (08:41)
[2023-12-19] MEDS: LOW STRENGTH ASPIRIN 81 MG PO (08:41)
[2023-12-19] MEDS: BACTROBAN 2% OINTMENT 1 APPLIC NASAL (08:42)
--- NOTE | 2023-12-19 12:00 | PTCARENOTE ---
walking halls independently. vss
--- NOTE | 2023-12-19 13:22 | W.PN.CARDCBS ---
Today's Communication / Plan
-
Remains with high-grade AV block, plan for permanent pacemaker tomorrow
Impression / Plan
-
PCP: Dr. Alberto
Cardiology: Dr. Castillo
EP: Dr. Davis
Impression:
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
90% distal LM, 80% LAD, 90% ostial circ, 95% mid RCA
s/p CABG x 4 - KATI to LAD, GSV to OM, sGSV to R PDA, L PLB, DOUGLAS clip, AVR 12/15/23
Paroxysmal Afib
s/p PVI 09/25/15
s/p PVI 08/18/19
Chronic Tikosyn therapy
s/p LINQ implant in 2015 and replaced in 02/23/20
Chronic Eliquis OAC
HTN
Hyperlipidemia
Echo 06/08/19: EF 60-65%, mild MR, mild TR
Echo 11/25/2023: EF 45-50%, mild cLVH, global hypokinesis, mild-moderate MR, mild-moderate with peak/mean gradients 37/20 mmHg, trace AI, mild-moderate TR, estimated PAP 42 mmHg
Plan:
-Presented for [facility] and found to have severe MV CAD as noted above. CT surgery consulted for evaluation of CABG.
-Status post CABG x 4 - KATI to LAD, GSV to OM, sGSV to R PDA, L PLB, DOUGLAS clip, AVR 12/15/23
-underlying rhythm still with high-grade AV block, complete heart block. OP BB and tikosyn remain on hold. Given that he has not recovered conduction, we will plan for permanent pacemaker implantation on Wednesday. This was described to the patient
in detail and informed consent was obtained by me.
-hgb down to up to 8.1 after transfusion yesterday.
-on asa, plavix. he had been on eliquis prior to admission. resume OAC when ok per surgery team
-Cr/LFTs improving
-follow volume status, was receiving 40mg po lasix daily prior to surgery but does not appear to have been on as OP
-was on norvasc and losartan preop, will reassess resuming in post op setting closer to [place]
-continue post op care. encouraged OOB/IS
-d/w nursing, CT surgery
Progress Note - Motor Rebuilder
Subjective
Date of Service: December 19, 2023
Tells me he feels great without chest pain shortness of breath palpitations or dizziness
Objective
Labs:
12/19/23 03:48
12/19/23 03:48
Labs
Hgb 8.1 g/dL (13.0-18.0) L 12/19/23 03:48
Hct 24.2 % (39.0-52.0) L 12/19/23 03:48
Plt Count 88 10^3/uL (130-400) L 12/19/23 03:48
PT 22.1 Sec (11.4-14.6) H 12/15/23 15:50
INR 1.91 12/15/23 15:50
APTT 36.7 Sec (23.4-35.0) H 12/15/23 15:50
Sodium 131 mmol/L (135-145) L 12/19/23 03:48
Potassium 4.7 mmol/L (3.5-5.1) 12/19/23 03:48
BUN 33 mg/dl (9-20) H 12/19/23 03:48
Creatinine 0.9 mg/dL (0.7-1.3) 12/19/23 03:48
Glucose 108 mg/dl (70-99) H 12/19/23 03:48
Vital Signs and I&O:
Vital Signs
Temp Pulse Resp BP Pulse Ox
98.1 F 80 18 102/68 98
12/19/23 08:00 12/19/23 08:30 12/19/23 08:00 12/19/23 04:45 12/19/23 08:00
Vital Signs
Temp Pulse Resp BP Pulse Ox
98.1 F 80 18 102/68 98
12/19/23 08:00 12/19/23 08:30 12/19/23 08:00 12/19/23 04:45 12/19/23 08:00
Intake & Output
12/17/23 12/18/23 12/19/23 12/20/23
06:59 06:59 06:59 06:59
Intake Total 1479.9 / 1506.5 1284.4 / 1284.4 1210 / 1210 250 / 250
Output Total 1385 / 1420 1390 / 1390 950 / 950
Balance 94.9 / 86.5 -105.6 / -105.6 260 / 260 250 / 250
Physical Exam
Physical Exam
Well-appearing, no acute distress
Regular rate and rhythm with normal S1 and S2 no S3 no S4 is grade 1/6 apical stock murmur no rubs.
Chest wound dressing is clean and dry
Lungs are clear to auscultation bilaterally without wheezes rales or rhonchi
--- NOTE | 2023-12-19 16:00 | PTCARENOTE ---
no additional changes in assessment at this time.
--- NOTE | 2023-12-19 18:11 | PTCARENOTE ---
resumed care of patient from previous RN. walking rounds completed. AAOx3. oob in chair at time of assessment. no complaints of pain, light headedness or dizziness. V paced on monitor HR 80. temp pacer box attached. //2. pulses weakly palpable.
+2 lower extrem edema. slight weeping noted from R leg donor site. dressing applied. min assist out of chair and walking independently once up. 98% RA. lungs clear. Appetite good. BRP. Cordis with KVO and PIVx2 intact. for pacer in AM
--- NOTE | 2023-12-19 21:00 | PTCARENOTE ---
Patient received OOB in chair watching movie. Patient A+A+Ox3. No neurological deficits noted. No c/o pain or discomfort. Ambulating in room and to bathroom with minimal assistance. Patient ambulated in hallway with RN without difficulty. Room
air. SaO2 100%. 100% V-Pacing. Heart rate 80. No c/o chest pain, pressure or discomfort. Normoactive bowel sounds. Voiding without difficulty. Positive, palpable pulses. Bilateral lower extremity edema. Right I.J. Cordis. Sternal Aquacell
intact. Chest tube dressing intact. Right groin puncture site - Ecchymotic - Several small, healing, dry blister sites - Open to air. Right lower extremity with incisional sites - Surgical adhesive - Small dressing to oozing area. Skin
protectant ointment to buttocks and sacrum. Skin intact. No breakdown noted. Assessment as documented.
[2023-12-19] MEDS: SENOKOT-S PO (21:01)
[2023-12-20] VITALS (21 sets, daily range): BP systolic 76–123; BP diastolic 47–85; PULSE 80; O2SAT 98–100; BMI 27.1
--- NOTE | 2023-12-20 00:30 | PTCARENOTE ---
Patient sleeping. NPO after midnight. No further changes from previous assessment.
--- NOTE | 2023-12-20 04:03 | W.PN.CT ---
Today's Communication / Plan
-
-pod #5
-no overnight issues
-v-paced @80 (intrinsic rhythm appears nsr with CHB and junctional escape mid 40s). NPO for PPM today
-holding BB and Tikosyn d/t bradycardia
-platelets low, overall increasing from josé miguel (120 today)
-elevated K, Mg- improving
-elevated LFTs- holding Lipitor and Tylenol- improving
-current meds (ASA, Plavix, Protonix, Neurontin)
-encourage IS, OOB
Assessment / Plan
-
Assessment:
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 Lackey on 12/15/23, pod #5
-POST-DEANN: LVEF 50%, no AI/PVL, mean gradient 8mmHg, trace TR, trace MR, No flow in DOUGLAS, normal PV, Ao OK; CI 2.8
-Ischemic cardiomyopathy, EF 35% preop - improved to 50% by intraop DEANN
-A-fib S/P PVI x2 ( 09/25/15 and 08/18/19)- on Eliquis/Tikosyn at home
-S/p Linq monitor implant 2015
-HTN
-Hyperlipidemia
-Prostatectomy for prostate CA
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
-Acute postop blood loss anemia
-Acute on chronic thrombocytopenia
-Acute postop atelectasis
-Acute postop metabolic acidosis- resolved
-Acute postop hypokalemia/ hypocalcemia-resolved
-Acute postop transient Mobitz 1, ? brief junctional rhythms high 40s, sinus bradycardia low 40s
-Acute postop hypovolemia with subsequent hypervolemia
-RENETTA
-Acute postop hyperkalemia/hypermagnesemia- dcd Mg
-Acute postop elevated LFTs-holding Lipitor, Tylenol
Subjective
Procedure
- s/p AVR (#25 Inspiris [address]); CABG x 4 (KATI to LAD, GSV to OM, sGSV to R PDA, L PLB); ELAA w/ 45mm AtriClip by Dr. Lackey on 12/15/23
-
Date of Service: December 20, 2023
No overnight events. NPO for PPM today
Objective Data
-
PT 22.1 Sec (11.4-14.6) H 12/15/23 15:50
INR 1.91 12/15/23 15:50
APTT 36.7 Sec (23.4-35.0) H 12/15/23 15:50
Vital Signs
Vital Signs
Temp Pulse Resp BP Pulse Ox
98.8 F 80 16 96/80 99
12/19/23 22:25 12/20/23 01:00 12/19/23 22:25 12/19/23 22:25 12/19/23 22:25
CT Intake/Output/Weight
12/19/23 12/19/23 12/20/23
06:59 18:59 06:59
Intake Total 350 / 1210 540 / 860 320 / 860
Output Total 650 / 950
Balance -300 / 260 540 / 860 320 / 860
SaO2: 99
Physical Exam
-
General: Awake, Oriented and AOx3
Cardiovascular: Regular rate & rhythm, No Murmurs and No Rub
Respiratory: Clear and Equal
Sternum: Stable
Incision: Clean, Dry and Intact
Extremities: Edema +1
Data Reviewed
-
Lab Results: Results Reviewed
Medications: Active Meds Reviewed
Chest X-Ray: Report Reviewed
ECG: Report Reviewed
[2023-12-20 04:47] LABS: Hematocrit 25.9 % (39.0-52.0); Hemoglobin 8.6 g/dL (13.0-18.0); Mean Corp Hgb Conc. 33.2 g/dL (33.0-37.0); Mean Corpuscular Hgb 29.3 pg (27.0-31.0); Mean Corpuscular Volume 88.1 fL (80.0-94.0); Platelet Count 120 10^3/uL (130-400); Red Blood Cell Count 2.94 10^6/uL (4.70-6.10); Red Cell Dist. Width 14.2 % (11.5-14.5); White Blood Cell Count 10.8 10^3/uL (4.8-10.8)
--- NOTE | 2023-12-20 05:00 | PTCARENOTE ---
Patient A+A+Ox3. No neurological deficits noted. No c/o pain or discomfort. Chest tube dressing changed. Right lower leg incision oozing serosanguineous drainage - New dressing placed. Patient given CHG bath and linens changed. Left anterior
chest - CHG wipe. New peripheral IV #20P placed left forearm. Patient to bathroom to void. Standing scale weight 88.1 kg. Patient back to bed. Assessment/Interventions as documented.
[2023-12-20 05:10] LABS: ALT (SGPT) 426 U/L (0-50); AST (SGOT) 218 U/L (17-59); Alkaline Phosphatase 92 U/L (38-126); Blood Urea Nitrogen 27 mg/dl (9-20); Calcium 8.5 mg/dl (8.4-10.2); Carbon Dioxide 24 mmol/L (22-30); Chloride 105 mmol/L (98-107); Direct Bilirubin 0.4 mg/dl (0.0-0.4); Estimated Creatinine Clearance 77 ml/min; Glucose 106 mg/dl (70-99); Potassium 4.3 mmol/L (3.5-5.1); Sodium 134 mmol/L (135-145); Total Bilirubin 2.1 mg/dl (0.2-1.3); Total Protein 5.3 g/dl (6.3-8.2); eGFR > 60.00
--- NOTE | 2023-12-20 08:11 | PTCARENOTE ---
Patient received form nightsdcft nurse. Patient is alert and oriented x4, pleasant. Denies pain/discomfort. 100% V-paced. V epicardial wire is connected to pacer box with settings: HR 80, mA 10, sensitivity 2. Audible heart tones. HR 80. Palpable
pulses. +2 LE edema. RIJ cordis maintained with KVO. PIV x2 maintained. RA. Oxygen saturation 98%. Upon auscultation, bilateral base lung sounds diminished. IS 2000. Abdomen round. Hypoactive BS. NPO for PPM later today. Sternal aquacell is clean,
dry, intact. R groin puncture site is open to air with several small, healing, dry blister areas. R knee incision has a new dressing that is clean, dry, intact. CT dressing clean, dry, intact. Assist x1 OOB, patient would like to lay in bed until
PPM placement. Awaiting PPM timing.
[2023-12-20] MEDS: LASIX 40 MG PO (09:20)
[2023-12-20] MEDS: PLAVIX 75 MG PO (09:20)
[2023-12-20] MEDS: SENOKOT-S PO ×2 (09:20→20:30)
[2023-12-20] MEDS: FEOSOL 325 MG PO (09:21)
[2023-12-20] MEDS: PROTONIX 40 MG PO (09:21)
[2023-12-20] MEDS: VITAMIN C 500 MG PO (09:21)
[2023-12-20] MEDS: LOW STRENGTH ASPIRIN 81 MG PO (09:21)
[2023-12-20] MEDS: NEURONTIN PO ×3 (09:21→16:52)
--- NOTE | 2023-12-20 11:43 | PTCARENOTE ---
Vital signs stable. 100% V-paced. HR 80. BP 92/74. RA. Oxygen saturation 99%. Patient is complaining that waiting for his PPM placement should have been done already. He is c/o dizziness, was initially hypotensive with BP 76/65 with MAP 71,
rechecked BP 92/74 with MAP 81. Will obtain patient's blood glucose. Contacted microbiology lab manager charge nurse for an estimated time frame for the PPM.
[2023-12-20 12:12] LABS: Glucose - Point of Care 110 mg/dl (70-99)
--- NOTE | 2023-12-20 12:13 | CM ---
Reviewed chart. Met with and Mrs. Hernandez to review discharge plans. He states he is feeling well and is waiting for PPM insertion today. He states he ambulated today. He states prior to admission he resides with his spouse in a a two story
home with two steps to enter. He states he has to go up a full flight of steps to get to bedroom/full bathroom. He states he has a powder room on the fist floor. He states prior to admission he was independent with ambulation and adls. He states
he mendoza not have any DME in the home. He states he has a prescription plan. His spouse states she will be home to assist in his care if needed. We reviewed a home visit by the Cardiothoracic Transitional Care Nurse. He is agreeable to a home visit.
Medical work-up in progress. The discharge plan is to return home with his spouse and a home visit by the Cardiothoracic Transitional Care Nurse when medically stable.
[2023-12-20] MEDS: NSS IV (13:12)
--- NOTE | 2023-12-20 16:55 | ITS.CL.PACE ---
Addendum entered and electronically signed by Santiago Hernandez MD 12/20/23 17:22:
Note, rather than starting amiodarone, patient had previously been on dofetilide 250 mcg twice daily
Spoke to cardiothoracic surgery and they will resume dofetilide 250 mcg twice daily.
Also discussed with cardiothoracic surgery okay to resume Eliquis starting tomorrow morning.
Original Note:
Gis Programmer - Pacemaker Implant
Pacemaker Implant
Procedure Report:
PACEMAKER IMPLANT REPORT
PCP: Dr. Alberto
Cardiology: Dr. Castillo
EP: Dr. Davis
Date of Procedure: December 20, 2023
Implantation of dual-chamber permanent pacemaker utilizing the left bundle branch for conduction system pacing
Indication/Diagnosis:
Non-reversible symptomatic bradycardia due to third degree atrioventricular block
He has had complete heart block status post AVR, CABG x 4, left atrial appendage clipping surgery December 15, 2023
After informed consent was obtained, 'time out' was called and confirmed, the patient was prepped and draped in a sterile fashion. Lidocaine with epi was used for local anesthesia. Central venous access was obtained via subclavian venipuncture. An
incision was made along the left chest and a pre-pectoral pocket was formed. Using a Seldinger technique and peel-away sheaths, the pacing leads were placed under fluoroscopic guidance.
Fluoroscopy was used to determine likely anatomic site for left bundle branch pacing. The Medtronic C315 sheath was used to deliver the Medtronic 3830 Selectsecure pacing lead with the helix exposed just exposed from the sheath tip during continuous
monitoring when pacemapping the septum during gentle clockwise rotation to obtain a paced QRS morphology of a W pattern in lead V1. Once the suspected optimal site was identified, lead deployment was performed with several rapid rotations as paced
QRS morphology was intermittently monitored until a paced QRS complex in lead V1 demonstrated development of an R wave (qR or rSR).
Unipolar pacing impedance dropped by approximately 00 ohms suggesting it had reached the left ventricular subendocardial.
Stable VEgm injury current is present throughout lead position and at end of case. suggesting there was no perforation through the septum into the LV cavity.
Final unipolar pacing impedance is 900 Ohms
Unipolar pacing threshold is stable at 1.2 V @ 0.4 ms.
Final conduction system paced QRS complex duration is 95 ms
LVAT is 87 ms and peak V5 -> peak V1 timing is 45 ms
Right atrial lead was placed at the RAA (patient presented to the laboratory in atrial fibrillation so atrial thresholds could not be obtained)
Once testing (see below) showed adequate and stable function, the leads were secured using the suture sleeves. The pocket was liberally irrigated with antibiotic solution. The leads were connected to the generator header and the leads and
generator were placed within the pocket. Fluoroscopy confirmed stable lead position. The pocket was closed in the typical fashion.
Antibiotic pouch was used
EKG from yesterday and prior EKGs this hospital stay have demonstrated sinus rhythm.
Cardioversion was performed to restore sinus rhythm sinus rhythm lasted several beats and then atrial fibrillation recurred.
Cardioversion was repeated once pacemaker was implanted and therefore allowing atrial ventricular synchronous pacing. With cardioversion sinus rhythm again only lasted a few seconds before atrial fibrillation recurred.
IMPLANTS:
Medtronic [id number], Left Pectoral
RA: Medtronic 5076-45, RAA
RV: Medtronic 3830, Interventricular septum at LBB
DEVICE TESTING:
Sensing: RA 1.2 mV (AF), RV 4.5 mV
Capture: RV 1 V@0.4ms
Ohms: RV 931
FINAL PROGRAMMING
Jaycob Pacing: DDDR 60-130 ppm
COMPLICATIONS:
None
CONCLUSIONS:
1: Successful implant of dual chamber permanent pacemaker utilizing Left Bundle Branch conduction system capture for pacing. [ ] Overall findings are most consistent with [ ] LBB capure [ ] Left Ventricular Septal capture. Note that both LBB
capture and Left Ventricular Septal capture has been associated with improved left ventricular systolic function via cardiac resynchronization.
RECOMMENDATIONS:
Will discussed with CVICU team. Would recommend amiodarone and then consideration for cardioversion as an outpatient.
Also recommend oral anticoagulation.
Copy to:
Dr. Alberto
Dr. Castillo
Dr. Davis
--- NOTE | 2023-12-20 17:05 | ITS.CL.IMPLP ---
Chartered Financial Analyst - Implant Loop
Implant Loop
Procedure Report:
LINQ IMPLANTED MONITOR REMOVAL
Date of Procedure: December 20, 2023
PROCEDURES:
1. Removal of implanted loop recorder
INDICATION FOR PROCEDURE:
1. Loop Recorder at end of battery longevity
After informed consent was obtained,'time out' was called and confirmed, the patient was prepped and draped in a sterile fashion.
SEDATION: Via the anesthesia department with conscious sedation
Lidocaine with epi was used for local anesthesia. An incision was made along the prior incision and the Linq monitor was carefully dissected from the pocket. The pocket was liberally irrigated with antibiotic solution. The pocket was closed in
the typical fashion.
COMPLICATIONS:
None
CONCLUSIONS:
1. Removal of implanted loop recorder.
RECOMMENDATIONS:
In-Office wound check in 7-14 days.
In-Office interrogation in 6-8 weeks.
--- NOTE | 2023-12-20 17:09 | PTCARENOTE ---
received pt s/p PPM placement. Left CW w pressure dressing intact, EKG completed and sling in place. VSS, pt denies pain. Plan of care reviewed w the pt and questions encouraged.
[2023-12-20] MEDS: TIKOSYN 250 MCG PO (20:29)
--- NOTE | 2023-12-20 20:51 | PTCARENOTE ---
Received patient for 7p-11p shift. Pt AAOx3, without complaints. V paced with occasional PVCs on telemetry monitor. VSS, afebrile. Pt ambulated to bathroom with 1 person assist. L arm pressure dressing intact, immobilizer in place. CXR done. RIJ
cordis kvo infusing without issues. Medications administered as ordered. Pt on Tikosyn, for EKG at 2230. Instructed pt to call for assistance prior to ambulation. Pt verbalized understanding. Call romero in reach. Will continue to monitor.
[2023-12-20] MEDS: NEURONTIN 100 MG PO (21:33)
[2023-12-20] MEDS: ANCEF 5 IV (21:33)
--- NOTE | 2023-12-20 22:46 | PTCARENOTE ---
VSS, Vpaced with occasional PVCs on air sampling and monitoring. 2229 EKG done, given to MARJ Tran. Medications administered as ordered. Pt denies pain at this time, resting comfortably in bed. Will continue to monitor.
--- NOTE | 2023-12-20 23:24 | PTCARENOTE ---
Assumed care of patient at 2300. VSS, Vpaced on tele. RA. Patient left arm in immobilizer s/p pacemaker placement. Patient able to make needs known and resting in bed
[2023-12-21] VITALS: BP 115/73
[2023-12-21 03:21] LABS: Hemoglobin 8.4 g/dL (13.0-18.0); Mean Corp Hgb Conc. 33.6 g/dL (33.0-37.0); Mean Corpuscular Hgb 28.8 pg (27.0-31.0); Mean Corpuscular Volume 85.6 fL (80.0-94.0); Platelet Count 146 10^3/uL (130-400); Red Blood Cell Count 2.92 10^6/uL (4.70-6.10); Red Cell Dist. Width 14.5 % (11.5-14.5); White Blood Cell Count 11.6 10^3/uL (4.8-10.8)
--- NOTE | 2023-12-21 03:39 | PTCARENOTE ---
Patient overall assessment unchanged from previous. Continued Vpaced on tele, 100% on RA. Voided in urinal multiple times. Left arm still in sling from PPM procedure.
[2023-12-21 03:52] LABS: ALT (SGPT) 384 U/L (0-50); AST (SGOT) 171 U/L (17-59); Albumin 2.8 g/dl (3.5-5.0); Alkaline Phosphatase 84 U/L (38-126); Blood Urea Nitrogen 25 mg/dl (9-20); Calcium 8.3 mg/dl (8.4-10.2); Carbon Dioxide 24 mmol/L (22-30); Chloride 106 mmol/L (98-107); Direct Bilirubin 0.3 mg/dl (0.0-0.4); Estimated Creatinine Clearance 69 ml/min; Glucose 96 mg/dl (70-99); Magnesium 2.1 mg/dl (1.6-2.3); Sodium 135 mmol/L (135-145); Total Bilirubin 1.9 mg/dl (0.2-1.3); Total Protein 5.2 g/dl (6.3-8.2); eGFR > 60.00
--- NOTE | 2023-12-21 04:17 | W.PN.CT ---
Addendum entered and electronically signed by Jarred Lackey MD 12/21/23 10:39:
I saw and examined the patient.
The PA's note was reviewed and I agree with the note.
Comment:
Okay for discharge to home
Resume Eliquis today
Check outpatient labs to follow LFTs
Original Note:
Today's Communication / Plan
-
-pod #6
-no issues overnight, no complaints, denies significant pain, wants to go home
-s/p Mdt pacer implant/Linq removal/attempted CVs on 12/19. Remains in a-fib - Tikosyn 250 q12 restarted 12/19- will review with EP if needs to stay for 5 doses
-plans to start Eliquis on 12/20 (ordered)
-will restart BB 12/20- monitor BP
-Tylenol and Lipitor are held d/t elevated LFTs
-current meds (ASA, Eliquis, Tikosyn, Lopressor, Protonix)
Assessment / Plan
-
Assessment:
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 Lackey on 12/15/23, pod #6
-S/p Successful implant of Medtronic dual chamber permanent pacemaker utilizing Left Bundle Branch conduction system capture for pacing and removal of LINQ monitor on 12/20/[address] Hernandez
-Cardioversion attempted several times during pacer implant; however, sinus rhythm only lasted a few seconds before atrial fibrillation recurred- Tikosyn 250mcg q12 restarted on 12/20/23
-post-op DEANN: LVEF 50%, no AI/PVL, mean gradient 8mmHg, trace TR, trace MR, No flow in DOUGLAS, normal PV, Ao OK; CI 2.8
-Ischemic cardiomyopathy, EF 35% preop - improved to 50% by intraop DEANN
-A-fib S/P PVI x2 ( 09/25/15 and 08/18/19)- on Eliquis/Tikosyn at home
-S/p Linq monitor implant 2016- removed 12/20/23
-HTN
-Hyperlipidemia
-Prostatectomy for prostate CA
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
-Acute postop blood loss anemia
-Acute on chronic thrombocytopenia
-Acute postop atelectasis
-Acute postop metabolic acidosis- resolved
-Acute postop hypokalemia/ hypocalcemia-resolved
-Acute postop transient Mobitz 1, ? brief junctional rhythms high 40s, sinus bradycardia low 40s
-Acute postop hypovolemia with subsequent hypervolemia
-RENETTA- resolved
-Acute postop hyperkalemia/hypermagnesemia- dcd Mg
-Acute postop elevated LFTs-holding Lipitor, Tylenol
Discussed patient care with: Nursing and Care Team
Subjective
Procedure
- s/p AVR (#25 Inspiris Resilia); CABG x 4 (KATI to LAD, GSV to OM, sGSV to R PDA, L PLB); ELAA w/ 45mm AtriClip by Dr. Lackey on 12/15/23
-
Date of Service: December 21, 2023
Objective Data
-
PT 22.1 Sec (11.4-14.6) H 12/15/23 15:50
INR 1.91 12/15/23 15:50
APTT 36.7 Sec (23.4-35.0) H 12/15/23 15:50
Vital Signs
Vital Signs
Temp Pulse Resp BP Pulse Ox
98.4 F 64 18 109/62 100
12/20/23 20:45 12/20/23 20:45 12/20/23 20:45 12/20/23 19:45 12/20/23 21:04
CT Intake/Output/Weight
12/20/23 12/20/23 12/21/23
06:59 18:59 06:59
Intake Total 350 / 890 620 / 690 70 / 690
Output Total 500 / 800 300 / 800
Balance 350 / 890 120 / -110 -230 / -110
SaO2: 100
Physical Exam
-
General: Awake and AOx3
Cardiovascular: Regular rate & rhythm, No Murmurs and No Rub
Respiratory: Clear
Sternum: Stable
Incision: Clean, Dry, Intact and Other (Pacer dressing cdi, no hematoma)
Extremities: No Edema
Data Reviewed
-
Lab Results: Results Reviewed
Medications: Active Meds Reviewed
Chest X-Ray: Report Reviewed and Image Reviewed
ECG: Report Reviewed and Image Reviewed
[2023-12-21] MEDS: ANCEF 5 IV (05:32)
[2023-12-21 05:35] VITALS: BP 100/70
[2023-12-21 06:00] VITALS: BMI 27.3
[2023-12-21] MEDS: LOW STRENGTH ASPIRIN 81 MG PO (08:24)
[2023-12-21] MEDS: TIKOSYN 250 MCG PO (08:24)
[2023-12-21] MEDS: PROTONIX 40 MG PO (08:24)
[2023-12-21 08:25] VITALS: BP 96/68
[2023-12-21] MEDS: FEOSOL 325 MG PO (08:25)
[2023-12-21] MEDS: SENOKOT-S 1 TABLET PO (08:25)
[2023-12-21] MEDS: ELIQUIS 5 MG PO (08:25)
[2023-12-21] MEDS: NEURONTIN 100 MG PO (08:25)
[2023-12-21] MEDS: VITAMIN C 500 MG PO (08:25)
[2023-12-21] MEDS: TOPROL XL 12.5 MG PO (08:27)
[2023-12-21] MEDS: LASIX 40 MG IV (08:27)
[2023-12-21] MEDS: NSS IV (08:27)
--- NOTE | 2023-12-21 10:00 | W.DCSUMMARY ---
Discharge Summary
Discharge Data
Date of Admission: 12/10/23
Date of Discharge: 12/21/23
Total time spent discharging patient (in min): 45
-
Pending Results: No
Hospital Course
Primary care physician: Giuliano Smith
Outpatient security risk analyst: Anna
Inpatient consultants: ROMERO
Procedures:
1. 12/15/23 Aortic valve replacement #25 Inspiris, Coronary artery bypass grafting x4, exclusion of left atrial appendage with #[address] Jarred Lackey
2. 12/20/23 dual chamber permanent pacemaker implantation (COTAtronic) with explant of loop recorder by Dr. Mikey Hernandez
Primary Diagnosis:
1. exertional dyspnea
2. severe multivessel coronary artery disease
3. moderate to severe aortic stenosis
4. paroxysmal atrial fibrillation, status post pulmonary vein isolation x2 (2015 & 2019) on chronic eliquis and tikosyn
5. postoperative complete heart block, with permanent pacemaker implantation
Secondary Diagnoses:
1. Ischemic cardiomyopathy, Ejection fraction of 35%
2. history of LINQ monitor implant in 2015, now status post explant 12/20/23
3. hypertension
4. hyperlipidemia
5. history of prostate cancer status post prostatectomy
6. 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
7. acute postop blood loss anemia
8. acute on chronic thrombocytopenia, improved to 146,000 on day of discharge
9. acute postop hypovolemia with subsequent hypervolemia, discharged on short course of lasix
10. postoperative acute kidney injury with peak creatinine 1.5, resolved
11. acute postop elevated liver function tests, holding statin and tylenol at time of discharge
HPI: Patient is a very active 83y/oM who presented to outpatient cardiology recently complaining of worsening shortness of breath with exertion. Outpatient echo demonstrated mildly reduced ejection fraction at 45-50% with moderate aortic stenosis
(MG 20, IMTIAZ 1.1). He eventually underwent elective left heart catheterization on 12/10/23 and was found to have severe multivessel CAD and was therefore admitted for expedited evaluation for AVR/CABG. After all preoperative workup was completed he
was deemed a suitable candidate for surgery.
Hospital course: The patient was taken to the operating room on 12/15/23 where he underwent AVR (#25 Inspiris) + CABG x4 (OLMEDO-LAD, SVG-OM, SVG-RPD-PDA) with exclusion of the left atrial appendage with #40 atriclip. No significant complications were
encountered, he was transferred to CVICU for recovery on epinephrine and levophed drips. He was extubated later that evening at approximately 6:40pm. On postop day#1 he had been weaned down on vasoactive drips, but remained on epi @1 and low dose
levophed. Home tikosyn had been held postop due to some intermittent pacing required with temporary wires. On postop day#2 he has been weaned off gtts, still with intermittent bradycardia and borderline hypotension which was improved with V pacing
at 80bpm. Hewett/bobby and chest tubes were discontinued without incident. LFTs noted to be elevated, tylenol/statin placed on hold. On postop day #3 pt continues to improve, but remains fatigued with hgb 7.3-->1u PRBC transfused. LFTs improving,
underlying rhythm sinus in the 40s. EP monitoring for possible PPM. On POD#4 pt went into complete heart block and was temporarily paced again at 80bpm, EP plans for PPM next day. LFTs improving, Hgb stable 8.1. POD#5 PPM placed without
complication by Dr. Hernandez, LINQ loop recorder explanted during procedure as well as DCCV attempted x3 due to atrial fibrillation without conversion to sinus rhythm. Home tikosyn resumed that evening. On postop day #6 pt remains in afib/flutter,
V pacing appropriately. Pt feeling well, ambulating with cardiac rehab with some mild shortness of breath. Eliquis has been resumed. Pt discharged to home with close follow up with [facility] transitional care nursing. He will have CMP checked in a week for
LFT monitoring. PPM site wound check to be completed by TCN, as well as device check appt with [facility] office in 1 week.
Home medication changes: Simvastatin held due to elevated LFTs--repeat labs to be checked in 1 week. Losartan and amlodipine held due to relative hypotension, resume as BP allows.
Discharge Plan
-
Patient Disposition: Home (Routine Discharge)
Discharge Diagnosis/Procedures: AVR/CABG/Left atrial clip (12/14), Pacemaker implant (12/19)
Condition: Good
Diet: Low Cholesterol and Low Sodium
Activity: No strenuous activity
Driving Restrictions: Not until seen by your Dr
Bathing Restrictions: OK to Shower
Blood Work: have CMP completed in 1 week
Other Services: Cardiac Rehab
Specialty Instructions: Weigh Daily- Call MD for wt gain/loss 3 lbs overnight/5 lbs in 1 week
Stand Alone Forms: DC Instructions- Cath/EP Lab, DC Inst - Implanted Device
Referrals:
[facility]- [facility] [Provider Group] - 12/29/23 1:20 pm (wound check and pacemaker interrogation)
[facility] Transitional Care Nurse [Outside] - in one to two days
(The Cardiothoracic Transitional Care Nurse will call you to set up a visit in 1-2 days.
This will be your post pacemaker incision check appointment also.)
[facility]. Cardiac Rehab [Outside] - 01/20/24 8:00 am
(Cardiac Rehab Orientation appointment is on 01/20/24 at 8 AM.
The Cardiac Rehab gym is located on the first floor of the [facility].)
Nancy Olivarez CRNP [Specified Professional Personl] - 01/24/24 9:00 am
Giuliano Smith MD [Family Provider] - in four to six weeks (Please make an appointment in four to six weeks. )
Jarred Lackey MD [Active] - 01/11/24 2:00 pm
Additional Discharge Medication Instructions: Stop amlodipine and losartan at this time due to low blood pressure. these may be resumed in the future by your doctor. HOLD simvastatin at this time due to elevated LFTs
Prescriptions:
New
ferrous sulfate [FeroSul] 325 mg (65 mg iron) Tablet
325 mg PO DAILY Qty: 30 0RF
aspirin [Children's Aspirin] 81 mg Tablet,Chewable
81 mg PO DAILY Qty: 30 1RF
ascorbic acid (vitamin C) [Vitamin C] 500 mg Tablet
500 mg PO DAILY Qty: 30 0RF
pantoprazole 40 mg Tablet,Delayed Release (Dr/Ec)
40 mg PO DAILY Qty: 30 1RF
metoprolol succinate 25 mg Tablet Extended Release 24 Hr
12.5 mg PO DAILY Qty: 30 1RF
potassium chloride 10 mEq tablet extended release
10 meq PO DAILY Qty: 7 0RF
Rx Instructions:
take with lasix for 7 days then stop
Continued
Eliquis 5 MG tablet
5 mg PO BID
Centrum Silver 1 EACH tablet
1 ea PO DAILY
dofetilide 250 MCG capsule
250 mcg PO Q12 Qty: 60 11RF
Held
simvastatin 40 MG tablet
40 mg PO QPM
Hold Instructions: for elevated LFTs, do not resume until cleared by your doctor
Discontinued
losartan 50 MG tablet
50 mg PO BID
amlodipine 5 MG tablet
5 mg PO DAILY Qty: 30 11RF
Discharge Orders:
Discharge Patient (As Directed); Ordered 12/21/23
Ordered By: Karla Macias
Care Plan Goals
Care Plan Goals:
Problem: Readiness for enhanced knowledge related to diagnosis and treatment plan
Goal: Understand your diagnosis and treatment plan needs, including medications if applicable.
Instructions: Know your diagnosis, underlying causes and treatment plan options, including medications if applicable. Consult with your health care team to learn about your diagnosis and treatment plan, including medications if applicable.
Discharge Date and Time
Print Language: TURKISH
[2023-12-21 10:43] VITALS: BP 92/64
--- NOTE | 2023-12-21 10:55 | W.PN.CARDCBS ---
Addendum entered and electronically signed by Dante Hale MD 12/21/23 12:27:
I saw and examined the patient.
The DATA WAREHOUSING ENGINEER or PA's note was reviewed and I agree with the note.
Comment: General: Well developed, well nourished in NAD.
Stable cardiology status for discharge. Will decide regarding possible cardioversion when seen in office. Restart Tikosyn. Discussed with CT surgery, EP, primary boat outfitting supervisor. Discussed with patient as well.
Original Note:
Today's Communication / Plan
-
tikosyn 250mcg Q12H
toprol 12.5mg daily
eliquis 5mg BID
asa 81mg daily
for DC today
post PPM activity restrictions reviewed
OP cardiac follow up arranged
Impression / Plan
-
PCP: Dr. Alberto
Cardiology: Dr. Castillo
EP: Dr. Davis
Impression:
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
90% distal LM, 80% LAD, 90% ostial circ, 95% mid RCA
s/p CABG x 4 - KATI to LAD, GSV to OM, sGSV to R PDA, L PLB, DOUGLAS clip, AVR 12/15/23
Paroxysmal Afib
s/p PVI 09/25/15
s/p PVI 08/18/19
Chronic Tikosyn therapy
s/p Medtronic PPM 12/20/23
s/p LINQ implant in 2015 and replaced in 02/23/20, explanted 12/20/23
Chronic Eliquis OAC
HTN
Hyperlipidemia
Echo 06/08/19: EF 60-65%, mild MR, mild TR
Echo 11/25/2023: EF 45-50%, mild cLVH, global hypokinesis, mild-moderate MR, mild-moderate with peak/mean gradients 37/20 mmHg, trace AI, mild-moderate TR, estimated PAP 42 mmHg
Plan:
-Presented for [facility] and found to have severe MV CAD as noted above.
-Status post CABG x 4 - KATI to LAD, GSV to OM, sGSV to R PDA, L PLB, DOUGLAS clip, AVR 12/15/23
-s/p Medtronic PPM 12/20/23 with removal of loop recorder and several attempted CVs in addition
-in vpaced rhythm by EKG this AM. QTc stable
-resumed OP tikosyn 250mcg Q12H. continue low dose toprol 12.5mg daily in addition
-eliquis resumed this AM. continue asa. hgb stable at 8.4
-Cr/LFTs continue to improve
-follow volume status, was receiving 40mg po lasix daily prior to surgery but does not appear to have been on as OP
-continue post op care. encouraged OOB/IS
-discussed activity restrictions/limitations post PPM with patient
-wound check next week through transitional care nurse
-d/w nursing, CT surgery
Progress Note - Web Architect
Subjective
Date of Service: December 21, 2023
feeling well. mild soreness at site. eager for DC
Objective
Labs:
12/21/23 03:15
12/21/23 03:15
Labs
Hgb 8.4 g/dL (13.0-18.0) L 12/21/23 03:15
Hct 25.0 % (39.0-52.0) L 12/21/23 03:15
Plt Count 146 10^3/uL (130-400) D 12/21/23 03:15
PT 22.1 Sec (11.4-14.6) H 12/15/23 15:50
INR 1.91 12/15/23 15:50
APTT 36.7 Sec (23.4-35.0) H 12/15/23 15:50
Sodium 135 mmol/L (135-145) 05/07/24 03:15
Potassium 4.0 mmol/L (3.5-5.1) 12/21/23 03:15
BUN 25 mg/dl (9-20) H 12/21/23 03:15
Creatinine 0.9 mg/dL (0.7-1.3) 12/21/23 03:15
Glucose 96 mg/dl (70-99) 12/21/23 03:15
Vital Signs and I&O:
Vital Signs
Temp Pulse Resp BP Pulse Ox
98.1 F 60 18 96/68 99
12/21/23 08:00 12/21/23 10:00 12/20/23 20:45 12/21/23 08:27 12/21/23 08:00
Vital Signs
Temp Pulse Resp BP Pulse Ox
98.1 F 60 18 96/68 99
12/21/23 08:00 12/21/23 10:00 12/20/23 20:45 12/21/23 08:27 12/21/23 08:00
Intake & Output
12/19/23 12/20/23 12/21/23 12/22/23
07:59 07:59 07:59 07:59
Intake Total 1210 / 1460 890 / 970 690 / 700 10
Output Total 950 / 950 800 / 800
Balance 260 / 510 890 / 970 -110 / -100
Physical Exam
Physical Exam
GEN: No distress, awake, alert, oriented x3. sitting in chair
HEENT: supple, anicteric, mmm, eomi
LUNGS: Decreased BS B/L, no wheezes
CV: Irreg, S1/S2, 1/6 syst LSB
ABD: soft, BS+, NT/ND
EXT: No cyanosis, clubbing. 1+ edema of RLE
NEURO: Gross non-focal
SKIN: Warm, pink, dry. No rash. Sternotomy dressing c/d/i. L chest aquacel dressing c/d/i.
[2023-12-21 11:19] VITALS: BP 137/80
[2023-12-21 13:24] VITALS: BP 137/80; BP 92/64; PULSE 80; O2SAT 99
--- NOTE | 2023-12-21 14:56 | PTCARENOTE ---
discharged via wheelchair. left with . all questions answered. aquacell replaced. VSS. showered. all other surg sites potato seed cutter
== END 2023-12-21 14:43 | disposition home or self-care (01) | DRG 217 ==
LOC: CVICU 09:50
PROVIDERS: Anesthesiology; Clinical Nurse Specialist Acute Care; Internal Medicine Cardiovascular Disease; Nurse Practitioner; Nurse Practitioner Adult Health; Physician Assistant Medical; ADMITTING PHYSICIAN Internal Medicine Interventional Cardiology; ATTENDING PHYSICIAN Thoracic Surgery (Cardiothoracic Vascular Surgery); CONSULT PHYSICIAN Internal Medicine Critical Care Medicine; CONSULT PHYSICIAN Thoracic Surgery (Cardiothoracic Vascular Surgery); FAMILY PHYSICIAN Family Medicine
PROC: B2151ZZ Fluoroscopy of Left Heart using Low Osmolar Contrast (ICD-10-PCS; 2023-12-10)
PROC: 4A023N8 Measurement of Cardiac Sampling and Pressure, Bilateral, Percutaneous Approach (ICD-10-PCS; 2023-12-10)
PROC: B2111ZZ Fluoroscopy of Multiple Coronary Arteries using Low Osmolar Contrast (ICD-10-PCS; 2023-12-10)
PROC: 02100ZC Bypass Coronary Artery, One Artery from Thoracic Artery, Open Approach (ICD-10-PCS; 2023-12-15)
PROC: 02RF08Z Replacement of Aortic Valve with Zooplastic Tissue, Open Approach (ICD-10-PCS; 2023-12-15)
PROC: 06BP4ZZ Excision of Right Saphenous Vein, Percutaneous Endoscopic Approach (ICD-10-PCS; 2023-12-15)
PROC: B24BZZ4 Ultrasonography of Heart with Aorta, Transesophageal (ICD-10-PCS; 2023-12-15)
PROC: 5A1221Z Performance of Cardiac Output, Continuous (ICD-10-PCS; 2023-12-15)
PROC: 021209W Bypass Coronary Artery, Three Arteries from Aorta with Autologous Venous Tissue, Open Approach (ICD-10-PCS; 2023-12-15)
PROC: 02L70CK Occlusion of Left Atrial Appendage with Extraluminal Device, Open Approach (ICD-10-PCS; 2023-12-15)
PROC: 30233N1 Transfusion of Nonautologous Red Blood Cells into Peripheral Vein, Percutaneous Approach (ICD-10-PCS; 2023-12-18)
PROC: 0JPT02Z Removal of Monitoring Device from Trunk Subcutaneous Tissue and Fascia, Open Approach (ICD-10-PCS; 2023-12-20)
PROC: 02HK3JZ Insertion of Pacemaker Lead into Right Ventricle, Percutaneous Approach (ICD-10-PCS; 2023-12-20)
PROC: 02H63JZ Insertion of Pacemaker Lead into Right Atrium, Percutaneous Approach (ICD-10-PCS; 2023-12-20)
PROC: 0JH606Z Insertion of Pacemaker, Dual Chamber into Chest Subcutaneous Tissue and Fascia, Open Approach (ICD-10-PCS; 2023-12-20)
DX: I25.118 Atherosclerotic heart disease of native coronary artery with other forms of angina pectoris (principal); D62 Acute posthemorrhagic anemia; I44.2 Atrioventricular block, complete; N17.9 Acute kidney failure, unspecified; I48.92 Unspecified atrial flutter; J98.11 Atelectasis; E87.20 Acidosis, unspecified; I35.0 Nonrheumatic aortic (valve) stenosis; I48.0 Paroxysmal atrial fibrillation; I25.5 Ischemic cardiomyopathy; E78.5 Hyperlipidemia, unspecified; I45.10 Unspecified right bundle-branch block; D69.6 Thrombocytopenia, unspecified; E87.6 Hypokalemia; E83.51 Hypocalcemia; I10 Essential (primary) hypertension; E83.41 Hypermagnesemia; E87.5 Hyperkalemia; E86.1 Hypovolemia; R79.89 Other specified abnormal findings of blood chemistry; R00.1 Bradycardia, unspecified; I95.9 Hypotension, unspecified; Z79.01 Long term (current) use of anticoagulants; Z85.46 Personal history of malignant neoplasm of prostate; Z79.899 Other long term (current) drug therapy; Z82.49 Family history of ischemic heart disease and other diseases of the circulatory system
CPT/HCPCS: 88305; 88311; 93017; 93308; 33208; 33286; 70355; 71045; 71046; 71250; 80048; 80053; 80061; 81003; 82248; 82330; 82565; 82805; 82947; 82962; 83036; 83605; 83735; 84132; 84302; 84520; 85014; 85018; 85025; 85027; 85049; 85384; 85610; 85730; 86850; 86900; 86901; 86920; 92960; 93005; 93312; 93320; 93321; 93325; 93350; 93460; 93880; 94002; C1769; C1785; C1887; C1892; C1894; C1898; P9016; P9045; P9047; Q9950; Q9957; Q9967

== ENCOUNTER → 2023-12-31 07:05 | Outpatient (REF) | payer MEDICARE, OTHER, SELFPAY ==
[2023-12-31 09:12] LABS: ALT (SGPT) 53 U/L (0-50); AST (SGOT) 32 U/L (17-59); Albumin 3.2 g/dl (3.5-5.0); Alkaline Phosphatase 93 U/L (38-126); Blood Urea Nitrogen 19 mg/dl (9-20); Calcium 9.1 mg/dl (8.4-10.2); Carbon Dioxide 27 mmol/L (22-30); Chloride 108 mmol/L (98-107); Glucose 109 mg/dl (70-99); Potassium 4.3 mmol/L (3.5-5.1); Sodium 140 mmol/L (135-145); Total Bilirubin 1.7 mg/dl (0.2-1.3); Total Protein 5.9 g/dl (6.3-8.2); eGFR > 60.00
== END ==
LOC: HWLAB 07:05
PROVIDERS: ATTENDING PHYSICIAN Thoracic Surgery (Cardiothoracic Vascular Surgery); FAMILY PHYSICIAN Family Medicine
DX: R79.89 Other specified abnormal findings of blood chemistry (principal); I25.10 Atherosclerotic heart disease of native coronary artery without angina pectoris; I35.0 Nonrheumatic aortic (valve) stenosis
CPT/HCPCS: 36415; 80053

== ENCOUNTER → 2024-01-06 07:06 | Outpatient (REF) | payer MEDICARE, OTHER, SELFPAY ==
[2024-01-06 09:37] LABS: Blood Urea Nitrogen 20 mg/dl (9-20); Calcium 8.9 mg/dl (8.4-10.2); Carbon Dioxide 27 mmol/L (22-30); Chloride 109 mmol/L (98-107); Glucose 99 mg/dl (70-99); Potassium 4.1 mmol/L (3.5-5.1); Sodium 142 mmol/L (135-145); eGFR > 60.00
== END ==
LOC: HWLAB 07:06
PROVIDERS: ATTENDING PHYSICIAN Nurse Practitioner Acute Care
DX: J90 Pleural effusion, not elsewhere classified (principal); I35.0 Nonrheumatic aortic (valve) stenosis; I25.10 Atherosclerotic heart disease of native coronary artery without angina pectoris
CPT/HCPCS: 36415; 71046; 80048

== ENCOUNTER → 2024-01-18 11:04 | Outpatient (REF) | payer MEDICARE, OTHER, SELFPAY | LOC: RAD 11:04 | PROVIDERS: ATTENDING PHYSICIAN Thoracic Surgery (Cardiothoracic Vascular Surgery); FAMILY PHYSICIAN Family Medicine | DX: M79.89 Other specified soft tissue disorders (principal); M25.461 Effusion, right knee; R60.0 Localized edema | CPT/HCPCS: 93970 ==

== ENCOUNTER → 2024-02-10 06:10 | Outpatient (REF) | payer MEDICARE, OTHER, SELFPAY ==
[2024-02-10 10:20] LABS: ALT (SGPT) 19 U/L (0-50); AST (SGOT) 32 U/L (17-59); Albumin 3.6 g/dl (3.5-5.0); Alkaline Phosphatase 89 U/L (38-126); Blood Urea Nitrogen 18 mg/dl (9-20); Calcium 9.4 mg/dl (8.4-10.2); Carbon Dioxide 25 mmol/L (22-30); Chloride 109 mmol/L (98-107); Glucose 94 mg/dl (70-99); HDL Cholesterol 50 mg/dl; LDL Cholesterol, Calculated 83 mg/dl; Potassium 4.1 mmol/L (3.5-5.1); Sodium 141 mmol/L (135-145); Total Bilirubin 0.9 mg/dl (0.2-1.3); Total Cholesterol 145 mg/dl (50-199); Total Protein 6.5 g/dl (6.3-8.2); Triglyceride 61 mg/dl (10-149); Very Low Density Lipoprotein 12 mg/dl (0-30); eGFR > 60.00
== END ==
LOC: HWLAB 06:10
PROVIDERS: ATTENDING PHYSICIAN Internal Medicine Cardiovascular Disease; FAMILY PHYSICIAN Family Medicine
DX: E78.5 Hyperlipidemia, unspecified (principal)
CPT/HCPCS: 36415; 80053; 80061

== ENCOUNTER 2024-02-11 10:01 | Outpatient (RCR) | payer MEDICARE, OTHER, SELFPAY | END 2024-02-11 23:59 | disposition home or self-care (01) | LOC: CRHB 10:01 | PROVIDERS: ATTENDING PHYSICIAN Internal Medicine Cardiovascular Disease | DX: I25.10 Atherosclerotic heart disease of native coronary artery without angina pectoris (principal); Z95.2 Presence of prosthetic heart valve; Z95.1 Presence of aortocoronary bypass graft | CPT/HCPCS: G0422; G0423 ==

== ENCOUNTER → 2024-02-16 13:57 | Outpatient (REF) | payer MEDICARE, OTHER, SELFPAY | LOC: HWRCS 13:57 | PROVIDERS: ATTENDING PHYSICIAN Internal Medicine Cardiovascular Disease; FAMILY PHYSICIAN Family Medicine | DX: Z95.3 Presence of xenogenic heart valve (principal) | CPT/HCPCS: 93306 ==

== ENCOUNTER 2024-03-08 09:43 | Outpatient (RCR) | payer MEDICARE, OTHER, SELFPAY | END 2024-03-08 23:59 | disposition home or self-care (01) | LOC: CRHB 09:43 | PROVIDERS: ATTENDING PHYSICIAN Internal Medicine Cardiovascular Disease; FAMILY PHYSICIAN Family Medicine | DX: I25.10 Atherosclerotic heart disease of native coronary artery without angina pectoris (principal); Z95.1 Presence of aortocoronary bypass graft; Z95.4 Presence of other heart-valve replacement | CPT/HCPCS: G0422; G0423 ==

== ENCOUNTER → 2024-04-11 06:15 | Outpatient (REF) | payer MEDICARE, OTHER, SELFPAY ==
[2024-04-11 09:38] LABS: ALT (SGPT) 79 U/L (0-50); AST (SGOT) 67 U/L (17-59); Albumin 3.7 g/dl (3.5-5.0); Alkaline Phosphatase 92 U/L (38-126); Blood Urea Nitrogen 17 mg/dl (9-20); Calcium 9.4 mg/dl (8.4-10.2); Carbon Dioxide 29 mmol/L (22-30); Chloride 108 mmol/L (98-107); Glucose 102 mg/dl (70-99); HDL Cholesterol 50 mg/dl; LDL Cholesterol, Calculated 63 mg/dl; Potassium 4.3 mmol/L (3.5-5.1); Sodium 141 mmol/L (135-145); Total Bilirubin 1.5 mg/dl (0.2-1.3); Total Cholesterol 127 mg/dl (50-199); Total Protein 6.3 g/dl (6.3-8.2); Triglyceride 73 mg/dl (10-149); Very Low Density Lipoprotein 14 mg/dl (0-30); eGFR > 60.00
== END ==
LOC: HWLAB 06:15
PROVIDERS: ATTENDING PHYSICIAN Internal Medicine Cardiovascular Disease; FAMILY PHYSICIAN Family Medicine
DX: I10 Essential (primary) hypertension (principal); E78.2 Mixed hyperlipidemia
CPT/HCPCS: 36415; 80053; 80061

== ENCOUNTER 2024-04-14 10:29 | Outpatient (RCR) | payer MEDICARE, OTHER, SELFPAY | END 2024-04-14 23:59 | disposition home or self-care (01) | LOC: CRHB 10:29 | PROVIDERS: ATTENDING PHYSICIAN Internal Medicine Cardiovascular Disease; FAMILY PHYSICIAN Family Medicine | DX: I25.10 Atherosclerotic heart disease of native coronary artery without angina pectoris (principal); Z95.1 Presence of aortocoronary bypass graft; Z95.4 Presence of other heart-valve replacement | CPT/HCPCS: G0422; G0423 ==

== ENCOUNTER 2024-05-12 09:15 | Outpatient (RCR) | payer MEDICARE, OTHER, SELFPAY | END 2024-05-12 23:59 | disposition home or self-care (01) | LOC: CRHB 09:15 | PROVIDERS: ATTENDING PHYSICIAN Internal Medicine Cardiovascular Disease; FAMILY PHYSICIAN Family Medicine | DX: I25.10 Atherosclerotic heart disease of native coronary artery without angina pectoris (principal); Z95.1 Presence of aortocoronary bypass graft; Z95.4 Presence of other heart-valve replacement | CPT/HCPCS: G0422; G0423 ==

== ENCOUNTER → 2024-06-26 06:49 | Outpatient (REF) | payer MEDICARE, OTHER, SELFPAY | LOC: RAD 06:49 | PROVIDERS: ATTENDING PHYSICIAN Internal Medicine Cardiovascular Disease; FAMILY PHYSICIAN Family Medicine | DX: R60.0 Localized edema (principal) | CPT/HCPCS: 93970 ==

== ENCOUNTER → 2024-07-07 06:22 | Outpatient (REF) | payer MEDICARE, OTHER, SELFPAY ==
[2024-07-07 09:59] LABS: ALT (SGPT) 49 U/L (0-50); AST (SGOT) 51 U/L (17-59); Albumin 3.9 g/dl (3.5-5.0); Alkaline Phosphatase 88 U/L (38-126); Blood Urea Nitrogen 18 mg/dl (9-20); Calcium 9.1 mg/dl (8.4-10.2); Carbon Dioxide 26 mmol/L (22-30); Chloride 108 mmol/L (98-107); Glucose 103 mg/dl (70-99); Potassium 4.2 mmol/L (3.5-5.1); Sodium 147 mmol/L (135-145); Total Bilirubin 1.8 mg/dl (0.2-1.3); Total Protein 6.8 g/dl (6.3-8.2); eGFR > 60.00
== END ==
LOC: HWLAB 06:22
PROVIDERS: ATTENDING PHYSICIAN Internal Medicine Cardiovascular Disease; FAMILY PHYSICIAN Family Medicine
DX: R60.0 Localized edema (principal)
CPT/HCPCS: 36415; 80053

== ENCOUNTER 2024-09-26 11:03 | Day surgery (SDC) | payer MEDICARE, OTHER, SELFPAY ==
[2024-09-26 11:45] VITALS: BMI 24.1
--- NOTE | 2024-09-26 13:19 | ITS.CL.CARDI ---
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
Cardioversion
Procedure Report:
Date of Procedure: Sep 26 2024
Procedure: Cardioversion
Indication: Symptomatic atrial fibrillation
Performing Physician: Yoav Carpio DO, FACC
Technique: The patient was brought to the holding area. Signed informed consent was obtained. A time out was called and performed. The patient was anesthetized by the anesthesia service. Anticoagulation status was reviewed and appropriate. R2 pads
were placed anteriorly and posteriorly. A 200 J synchronized biphasic shock restored normal sinus rhythm without significant bradycardia. There were no complications.
Conclusion: Uncomplicated cardioversion from atrial fibrillation to sinus rhythm.
Recommendation: Routine post cardioversion care. Continue director long term care anticoagulation.
== END 2024-09-26 13:32 | disposition home or self-care (01) ==
LOC: CATH 11:03
PROVIDERS: ATTENDING PHYSICIAN Nuclear Medicine Nuclear Cardiology; FAMILY PHYSICIAN Family Medicine; OTHER PHYSICIAN Internal Medicine Cardiovascular Disease
DX: I48.91 Unspecified atrial fibrillation (principal); Z79.01 Long term (current) use of anticoagulants; Z79.899 Other long term (current) drug therapy
CPT/HCPCS: 92960; 93005

== ENCOUNTER → 2024-10-09 06:13 | Outpatient (REF) | payer MEDICARE, OTHER, SELFPAY ==
[2024-10-09 09:33] LABS: Platelet Count 104 10^3/uL (130-400)
[2024-10-09 09:34] LABS: % Basophils 0.8 % (0-2); % Eosinophils 4.6 % (0-6); % Immature Granulocytes 0.2 % (0-0.5); % Lymphocytes 18.6 % (20.5-51.1); % Monocytes 7.4 % (1.7-9.3); % Neutrophils 68.4 % (42.2-75.2); Absolute Eosinophils 0.2 10^3/uL (0-0.7); Absolute Monocytes 0.4 10^3/uL (0.1-0.6); Absolute Neutrophils 3.6 10^3/uL (1.4-6.5); Hematocrit 41.1 % (39.0-52.0); Hemoglobin 12.7 g/dL (13.0-18.0); Mean Corp Hgb Conc. 30.9 g/dL (33.0-37.0); Mean Corpuscular Hgb 25.9 pg (27.0-31.0); Mean Corpuscular Volume 83.7 fL (80.0-94.0); Mean Platelet Volume 11.9 fL (7.4-10.4); Nucleated Red Blood Cells % 0 % (-); Red Blood Cell Count 4.91 10^6/uL (4.70-6.10); Red Cell Dist. Width 17.1 % (11.5-14.5); White Blood Cell Count 5.3 10^3/uL (4.8-10.8)
[2024-10-09 09:43] LABS: ALT (SGPT) 46 U/L (0-50); AST (SGOT) 44 U/L (17-59); Albumin 3.9 g/dl (3.5-5.0); Alkaline Phosphatase 120 U/L (38-126); Blood Urea Nitrogen 22 mg/dl (9-20); Calcium 9.5 mg/dl (8.4-10.2); Carbon Dioxide 26 mmol/L (22-30); Chloride 106 mmol/L (98-107); Glucose 127 mg/dl (70-99); Potassium 4.1 mmol/L (3.5-5.1); Sodium 137 mmol/L (135-145); Total Bilirubin 2.4 mg/dl (0.2-1.3); Total Protein 6.5 g/dl (6.3-8.2); eGFR > 60.00
[2024-10-09 10:11] LABS: NT-proBNP 3450 pg/ml
== END ==
LOC: HWLAB 06:13
PROVIDERS: ATTENDING PHYSICIAN Nurse Practitioner; FAMILY PHYSICIAN Family Medicine
DX: R06.09 Other forms of dyspnea (principal); I48.0 Paroxysmal atrial fibrillation; I25.5 Ischemic cardiomyopathy; Z95.1 Presence of aortocoronary bypass graft
CPT/HCPCS: 36415; 80053; 83735; 83880; 85025

== ENCOUNTER → 2024-10-17 06:04 | Outpatient (REF) | payer MEDICARE, OTHER, SELFPAY ==
[2024-10-17 10:03] LABS: Blood Urea Nitrogen 23 mg/dl (9-20); Calcium 9.6 mg/dl (8.4-10.2); Carbon Dioxide 28 mmol/L (22-30); Chloride 105 mmol/L (98-107); Glucose 102 mg/dl (70-99); Potassium 4.1 mmol/L (3.5-5.1); Sodium 141 mmol/L (135-145); eGFR > 60.00
== END ==
LOC: HWRCS 06:04
PROVIDERS: ATTENDING PHYSICIAN Nurse Practitioner; FAMILY PHYSICIAN Family Medicine; REFERRING PHYSICIAN Internal Medicine Cardiovascular Disease
DX: R06.09 Other forms of dyspnea (principal); I25.5 Ischemic cardiomyopathy; Z95.2 Presence of prosthetic heart valve; I48.0 Paroxysmal atrial fibrillation
CPT/HCPCS: 36415; 80048; 93306

== ENCOUNTER → 2024-12-14 10:05 | Outpatient (REF) | payer MEDICARE, OTHER, SELFPAY | LOC: HWRAD 10:05 | PROVIDERS: ATTENDING PHYSICIAN Internal Medicine Critical Care Medicine; FAMILY PHYSICIAN Family Medicine | DX: R91.1 Solitary pulmonary nodule (principal) | CPT/HCPCS: 71250 ==

== ENCOUNTER → 2025-01-02 06:10 | Outpatient (REF) | payer MEDICARE, OTHER, SELFPAY ==
[2025-01-02 09:33] LABS: ALT (SGPT) 51 U/L (0-50); AST (SGOT) 47 U/L (17-59); Alkaline Phosphatase 106 U/L (38-126); Blood Urea Nitrogen 23 mg/dl (9-20); Calcium 9.4 mg/dl (8.4-10.2); Carbon Dioxide 27 mmol/L (22-30); Chloride 111 mmol/L (98-107); Glucose 105 mg/dl (70-99); HDL Cholesterol 52 mg/dl; LDL Cholesterol, Calculated 76 mg/dl; Sodium 143 mmol/L (135-145); Total Bilirubin 1.8 mg/dl (0.2-1.3); Total Cholesterol 142 mg/dl (50-199); Total Protein 6.6 g/dl (6.3-8.2); Triglyceride 70 mg/dl (10-149); Very Low Density Lipoprotein 14 mg/dl (0-30); eGFR > 60.00
[2025-01-02 09:49] LABS: NT-proBNP 3390 pg/ml
== END ==
LOC: HWLAB 06:10
PROVIDERS: ATTENDING PHYSICIAN Internal Medicine Cardiovascular Disease; FAMILY PHYSICIAN Family Medicine
DX: R06.09 Other forms of dyspnea (principal); E78.5 Hyperlipidemia, unspecified
CPT/HCPCS: 36415; 80053; 80061; 83880

== ENCOUNTER → 2025-04-10 08:53 | Outpatient (REF) | payer MEDICARE, OTHER, SELFPAY ==
[2025-04-10 09:39] LABS: Hematocrit 42.7 % (39.0-52.0); Hemoglobin 13.3 g/dL (13.0-18.0); Mean Corp Hgb Conc. 31.1 g/dL (33.0-37.0); Mean Corpuscular Volume 86.6 fL (80.0-94.0); Nucleated Red Blood Cells % 0 % (-); Platelet Count 144 10^3/uL (130-400); Red Cell Dist. Width 15.6 % (11.5-14.5)
[2025-04-10 09:40] LABS: ALT (SGPT) 49 U/L (0-50); AST (SGOT) 49 U/L (17-59); Albumin 4.1 g/dl (3.5-5.0); Alkaline Phosphatase 134 U/L (38-126); Blood Urea Nitrogen 17 mg/dl (9-20); Calcium 9.4 mg/dl (8.4-10.2); Carbon Dioxide 28 mmol/L (22-30); Chloride 110 mmol/L (98-107); Glucose 100 mg/dl (70-99); INR 1.39; Magnesium 2.0 mg/dl (1.6-2.3); PT 17.3 Sec (11.4-14.6); Potassium 4.2 mmol/L (3.5-5.1); Sodium 142 mmol/L (135-145); Total Protein 6.8 g/dl (6.3-8.2); eGFR > 60.00
== END ==
LOC: SDSPAT 08:53
PROVIDERS: ATTENDING PHYSICIAN Internal Medicine Cardiovascular Disease; FAMILY PHYSICIAN Family Medicine; OTHER PHYSICIAN Internal Medicine Cardiovascular Disease
DX: I48.0 Paroxysmal atrial fibrillation (principal)
CPT/HCPCS: 36415; 80053; 83735; 85025; 85610; 86850; 86900; 86901; 93005

== ENCOUNTER 2025-05-10 06:00 | Day surgery (SDC) | payer MEDICARE, OTHER, SELFPAY ==
[2025-04-10 09:01] VITALS: BMI 26.1
--- NOTE | 2025-04-10 09:09 | HPS.HSE ---
Family Physician
-
Family Physician: NO INTERVIEW UNKNOWN
Chief Complaint
-
Persistent atrial fibrillation.
History of Present Illness
The patient is an 84 year old male presenting today for persistent atrial fibrillation. The patient reports a history of intermittent dyspnea on exertion, fatigue, and tiredness associated with this diagnosis. He was initially diagnosed
with atrial fibrillation after his right knee partial medial meniscectomy in 2011. He previously underwent 2 pulmonary vein isolations for this diagnosis, the last of which occurred in August 2019. He had recurrent atrial fibrillation in July
2023 and underwent a cardioversion in September 2024. He had a previous cardioversion done remotely. He is on current pharmacological therapy with Dofetilide and Metoprolol Succinate. He reports compliance with Eliquis for oral anticoagulation. Given
his significant symptoms associated with this arrhythmia, he would like to proceed with pulmonary vein isolation for more definitive arrhythmia management. He denies any current complaints today such as chest pain, shortness of breath at rest,
nausea, vomiting, diarrhea, lightheadedness, dizziness, cough, sore throat, or fever.
Medical History
Past Medical History
Past Medical History: Reports Other
Additional Past Medical History:
1. Persistent atrial fibrillation, status post pulmonary vein isolation, 2015 and 2019, and cardioversion x2; pharmacological therapy with Dofetilide and Metoprolol Succinate and oral anticoagulation with Eliquis.
2. Hypertension.
3. Hyperlipidemia.
4. 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
5. Post-surgical complete heart block, status post dual chamber pacemaker implant 12/2023.
6. Ischemic cardiomyopathy, mildly reduced ejection fraction.
7. PVCs, asymptomatic.
8. Nonsustained ventricular tachycardia.
9. Right bundle branch block.
10. Mild-moderate mitral regurgitation.
11. Moderate tricuspid regurgitation.
12. Osteoarthritis, status post left total hip arthroplasty 2014.
13. Prostate cancer, 2017, status post prostatectomy.
14. Iron deficiency anemia, on oral supplementation.
15. History of thrombocytopenia.
Past Surgical History: Reports Other
Additional Past Surgical History:
1. Pulmonary vein isolation x2.
2. Cardioversion x2.
3. CABG x4 and bioprosthetic AVR with atrial clip.
4. Dual chamber pacemaker implant and LINQ monitor extraction.
5. LINQ monitor implant and subsequent replacement.
6. Left total hip arthroplasty.
7. Right knee partial medial meniscectomy.
8. Prostatectomy.
9. Colonoscopy.
Social History
Tobacco: Non-smoker
Alcohol: Other (He drinks gin and tonics socially. )
Personal:
Living: Other (He lives with his in a 2 story home. )
Family History
Family History: Not pertinent
Allergies / Home Medications
Allergy/Medication List:
Home medications:
1. Ascorbic acid 500 mg p.o. daily.
2. Aspirin 81 mg p.o. daily.
3. Atorvastatin 40 mg p.o. at bedtime.
4. Centrum silver multivitamin 1 tablet p.o. daily.
5. Dofetilide 250 mcg p.o. every 12 hours.
6. Eliquis 5 mg p.o. twice a day.
7. Ferrous sulfate 325 mg p.o. Mondays, Wednesdays, and Fridays.
8. Lisinopril 5 mg p.o. daily.
9. Metoprolol Succinate 12.5 mg p.o. daily.
Allergies: No known allergies.
Review of Systems
-
A 12 point ROS was completed and negative except as noted: Yes
Physical Exam
Vital Signs
Blood pressure 153/94. Heart rate 64. Respirations 18. Pulse ox 99% on room air.
Height 5 feet, 8 inches. Weight 77.9 kg. BMI 26.1.
Physical Exam
General: Well Developed, Well Nourished and No Apparent Distress
HEENT: NormoCephalic, Moist mucous membranes, Atraumatic and PERRLA
Respiratory: Clear
Cardiac: Regular Rhythm and Other (Pacemaker site intact. )
GI: Soft, Non Tender and Non Distended
Musculoskeletal: No Edema and Normal Gait & Station
Skin: Warm and Dry
Neuro: AO x 3 and Nonfocal/grossly intact
Laboratory Results
-
DIAGNOSTIC STUDIES as of 04/10/2025: White blood cell count 6.4. Hemoglobin 13.3. Platelet count 144,000. PT 17.3. INR 1.39. Sodium 142. Potassium 4.2. BUN 17.Creatinine 0.8. Glucose 100. Calcium 9.4. Magnesium 2.0. AST 49. ALT 49. Albumin 4.1. Type
and screen O positive.
EKG 04/10/2025: Ventricular paced rhythm.
Echocardiogram 10/17/2024: 1Moderate left ventricular hypertrophy with ejection fraction 40-45% and septal hypokinesis/paradoxical motion with mid and apical inferior and inferolateral hypokinesis. Thickened mitral leaflets, mitral annular
calcification, mild to moderate mitral regurgitation and severe left atrial dilatation. #25 Inspira bioprosthetic aortic valve, peak and mean gradients are 25 and 15 mmHg, no aortic regurgitation. Dilated right heart with preserved right ventricular
function. Pacing wire presents. Moderate tricuspid regurgitation and pulmonary artery systolic pressure 35-40 mmHg. In February 2024, the ejection fraction was 50% with mild globally reduced systolic function and paradoxical septal motion. Mitral
regurgitation was trace. Prior to that, in December 2023, the ejection fraction was 45-50% with discrete inferior hypokinesis.
Impression/Plan
-
IMPRESSION/PLAN:
1. Persistent atrial fibrillation: The patient is in need of pulmonary vein isolation with Dr. Shankar Davis on 05/10/2025. The benefits and risks of the procedure have been explained to the patient. The patient understands these risks and wishes to
proceed. He will not be required to undergo a pre-procedural transesophageal echocardiogram as he has been compliant with his home oral anticoagulation. He is aware to continue his Eliquis uninterrupted prior to his procedure. He will hold his
Dofetilide the day before and morning of his procedure. He will take no medications the morning of his ablation.
[2025-05-10] VITALS (13 sets, daily range): BP systolic 112–175; BP diastolic 75–105; BMI 24.4
[2025-05-10 08:55] LABS: ACT-LR - POC 239 Seconds (116-155)
[2025-05-10 09:14] LABS: ACT-LR - POC 263 Seconds (116-155)
--- NOTE | 2025-05-10 09:59 | ITS.CL.ABL ---
Patrol Driver - Ablation
Ablation
Procedure Report:
ELECTROPHYSIOLOGY ABLATION STUDY
DATE:: May 10, 2025�����������������������������REFERRING: Dr. Reinaldo Castillo
INDICATION: Paroxysmal supraventricular tachycardia in the form of atrial fibrillation.��Prior AVR CABG, prior to ablations in 2015 and 2019
HISTORY: See H and P.��As above
ANTIARRHYTHMIC DRUG: Dofetilide
PRE-PROCEDURE DEANN: No intracardiac thrombus
PRESENTING RHYTHM: AV pacing
'TIME-OUT':��called and confirmed.
SEDATION/ANESTHESIA:��provided via the anesthesia department using general anesthesia (LMA).
INTRAVENOUS/ARTERIAL ACCESS:
Right femoral venous - 8Fr
Left femoral venous - 8 Fr, 6 Fr
Kcofob-yb-ganoa suture bilaterally
Ultrasound guidance for bilateral femoral vein access was utilized by me to obtain access with demonstration of normal anatomy
CHADS-VASC Score:
HAS-Bled Score
PROCEDURE:
1.��A decapolar CS catheter was placed within the CS for mapping and pacing.��This was also used as the reference catheter for the 3-D map.
2. The intracardiac ultrasound catheter was positioned in the RA to identify the FO for targeting of transseptal puncture, assist��in identification of the pulmonary vein ostia, monitoring pre and post ablation pulmonary vein flow velocities,
monitoring for 'bubble' formation during RF application as a sign of thermal injury,��and to monitor for pericardial effusion during mapping and ablation procedure.���Left atrial size, LV ejection fraction, and pulmonary vein flows were monitored
pre and post ablation procedure. The other valves were inspected and found to be free of significant regurgitation or stenosis.
3.��Half of the calculated heparin bolus was administered prior to the first transeptal puncture.��Transseptal puncture was performed to diagnose RA and LA pressure so that safety of LA mapping and ablation could be further assessed, and to access
the left atrium and pulmonary veins for mapping and ablation.��This entailed advancing an 8 Fr SL-1 sheath with dilator into the superior vena cava and withdrawing both (monitoring intracardiac ultrasound, fluoroscopy and tip pressure) with the tip
oriented toward the atrial septum.��The fossa ovalis was engaged (indicated by sudden displacement of the sheath tip as well as tenting of the fossa seen on intracardiac ultrasound).��Left atrial access required a pass with the Brockenbrough needle
extended.��Left atrial catheter position was confirmed by pressure monitoring (RA mean pressure 8 mm Hg and LA mean presure 14 mm Hg), LA saturation (99%),��as well as fluoroscopy.��The sheath was advanced over the dilator and positioned in the left
atrium.��This procedure was repeated for the Agilis sheath.��The remainder of the calculated heparin bolus was administered and heparin was
infused to maintain ACT at 300 -350 seconds throughout the case.
4.��RA pacing was performed via the proximal decapolar poles and LA pacing was performed via the distal decapolr poles.
5. A quadrapolar catheter was first positioned at the His position for His Bundle recording which was tagged via the 3-D Navex sytem, and then passed to the RVA for RV pacing and recording.
6. The 9 mm lattice catheter was placed in each of the LIPV, LSPV, RSPV and the RIPV.��
7.��Next, a 3-D map was created using Navex.���A 3-D reconstructed CT image was compared to the 3-D Navex map to assist in anatomic interpretation, mapping and ablation.��The CT image and the NavX image were fused.
8. The pulmonary veins were isolated at baseline except for a focal area of reconnection on the posterior polly of the left veins. This was addressed with focal lesions at the posterior polly of the left veins. We then performed a box lesion
set around the posterior wall with the roof floor and posterior wall connection lines between the roof and floor lines along the posterior wall at the right and left veins. This rendered entrance and exit block in all 4 pulmonary veins as well as
the posterior wall roof and floor of the left atrium. There is no other inducible arrhythmias.
9. The device was reprogrammed to DDDR at the end of the procedure with no changes in programming
TOTAL FLOURO TIME: 12.1 minutes 123 mGy
TOTAL RF DURATION: 0 minutes
REVERSAL OF HEPARIN: 35 mg of protamine, slow IV administration
COMPLICATIONS:
None
Intracardiac US shows no pericardial effusion post ablation.
SUMMARY:��
Complex left atrial mapping and ablation.
Focal reisolation of the posterior chronic left veins. Box lesion set in the posterior wall of the left atrium
RECOMMENDATIONS:
1. Consider same-day discharge
2. Resume anticoagulation for 3 months. If the patient remains in sinus rhythm he does have a left atrial appendage clip and can consider discontinuation of oral anticoagulation
3.��Continue dofetilide for now but consider discontinuation in the future
4.��Out of bed in 4 hours
Copy to: Dr. Reinaldo Castillo
--- NOTE | 2025-05-10 14:24 | W.PN.UPDATE ---
Update Note
Progress Note Update
84 yo WM s/p PVI (Same day). He denies cp, sob, skylar diet, voiding, b/l groins c/d/i soft, EKG AV dual paced. He will resume Eliquis tonight. He will continue dofetilide and metoprolol xl. Activity restrictions reviewed. He will f/u Dr. Castillo in 2
mo. He is for d/c home after 230p.
== END 2025-05-10 14:30 | disposition home or self-care (01) ==
LOC: CATH 06:00
PROVIDERS: ATTENDING PHYSICIAN Internal Medicine Cardiovascular Disease; FAMILY PHYSICIAN Family Medicine; OTHER PHYSICIAN Internal Medicine Cardiovascular Disease
DX: I48.19 Other persistent atrial fibrillation (principal); I25.5 Ischemic cardiomyopathy; I25.10 Atherosclerotic heart disease of native coronary artery without angina pectoris; M19.90 Unspecified osteoarthritis, unspecified site; I47.10 Supraventricular tachycardia, unspecified; Z79.01 Long term (current) use of anticoagulants; Z79.899 Other long term (current) drug therapy; E78.5 Hyperlipidemia, unspecified; I10 Essential (primary) hypertension; Z79.82 Long term (current) use of aspirin; I08.3 Combined rheumatic disorders of mitral, aortic and tricuspid valves; Z90.79 Acquired absence of other genital organ(s); Z95.0 Presence of cardiac pacemaker; Z95.1 Presence of aortocoronary bypass graft; Z95.3 Presence of xenogenic heart valve; Z96.642 Presence of left artificial hip joint
CPT/HCPCS: C1733; C1894; C1730; C1766; C1892; C1759; 85347; 93005; 93656; 93657

== ENCOUNTER → 2025-05-30 06:15 | Outpatient (REF) | payer MEDICARE, OTHER, SELFPAY ==
[2025-05-30 10:31] LABS: Hematocrit 38.6 % (39.0-52.0); Hemoglobin 12.2 g/dL (13.0-18.0); Mean Corp Hgb Conc. 31.6 g/dL (33.0-37.0); Mean Corpuscular Volume 85.8 fL (80.0-94.0); Nucleated Red Blood Cells % 0 % (-); Platelet Count 100 10^3/uL (130-400); Red Cell Dist. Width 16.4 % (11.5-14.5)
[2025-05-30 10:48] LABS: ALT (SGPT) 35 U/L (0-50); AST (SGOT) 38 U/L (17-59); Albumin 3.8 g/dl (3.5-5.0); Alkaline Phosphatase 95 U/L (38-126); Blood Urea Nitrogen 19 mg/dl (9-20); Calcium 9.4 mg/dl (8.4-10.2); Carbon Dioxide 28 mmol/L (22-30); Chloride 109 mmol/L (98-107); Glucose 98 mg/dl (70-99); Potassium 4.1 mmol/L (3.5-5.1); Sodium 141 mmol/L (135-145); Total Protein 6.5 g/dl (6.3-8.2); eGFR > 60.00
[2025-05-30 11:11] LABS: PSA, Total - Diagnostic < 0.06 ng/ml (0.0-4.0)
== END ==
LOC: HWLAB 06:15
PROVIDERS: ATTENDING PHYSICIAN Family Medicine
DX: R53.83 Other fatigue (principal); R79.89 Other specified abnormal findings of blood chemistry; Z85.46 Personal history of malignant neoplasm of prostate
CPT/HCPCS: 36415; 80053; 84153; 84443; 85025

== ENCOUNTER → 2025-06-06 08:13 | Outpatient (REF) | payer MEDICARE, OTHER, SELFPAY | LOC: HWRCS 08:13 | PROVIDERS: ATTENDING PHYSICIAN Nurse Practitioner; FAMILY PHYSICIAN Family Medicine | DX: R06.09 Other forms of dyspnea (principal); I25.5 Ischemic cardiomyopathy; Z95.2 Presence of prosthetic heart valve | CPT/HCPCS: 93306 ==